=== PATIENT | female | born 1940 | race Caucasian/White ===

== ENCOUNTER → 2017-11-02 07:37 | Outpatient (CLI) | payer MEDICARE, OTHER, SELFPAY ==
[2017-11-02 08:18] LABS: Add Manual Diff / Slide Review NO; Basophils Percent Auto 0.5 % (0-2); Eosinophils Percent Auto 2.5 % (2-4); Hematocrit 41.2 % (36-46); Lymphocytes Percent Auto 29.3 % (25-40); Mean Corpuscular HGB Conc 33.9 % (30-36); Mean Corpuscular Volume 91.5 fL (80-100); Monocytes Percent Auto 8.5 % (3-14); Neutrophils Absolute Auto 4800 /uL (3000-5900); Neutrophils Percent Auto 59.2 % (50-75); Platelet Count 243 X10^3/uL (150-400); Red Cell Distribution Width 14.1 % (11.6-14.8); White Blood Cell Count 8.1 X10^3/uL (4.5-11.0)
[2017-11-02 08:29] LABS: Alanine Aminotransferase 31 IU/L (9-52); Albumin 4.2 g/dL (3.5-5.0); Albumin Globulin Ratio 1.4 (1.0-2.8); Alkaline Phosphatase 94 U/L (38-126); Aspartate Aminotransferase 24 IU/L (14-36); Bilirubin Total 0.6 mg/dL (0.2-1.3); Blood Urea Nitrogen 16 mg/dL (7-17); Calcium 9.9 mg/dL (8.4-10.2); Carbon Dioxide 30 mmol/L (22-32); Chloride 99 mmol/L (98-107); Estimated Glomerular Filt Rate > 60.0 mL/min (>60); Glucose 119 mg/dL (80-110); HEMOLYSIS < 15 (0-50); Potassium 4.3 mmol/L (3.4-5.1); Sodium 139 mmol/L (137-145); Total Protein 7.2 g/dL (6.3-8.2)
[2017-11-02 09:20] LABS: Free T4, Direct Thyroxine 1.33 ng/dL (0.78-2.19)
[2017-11-02 09:34] LABS: Thyroid Stimulating Hormone 3.26 uIU/mL (0.47-4.68)
== END ==
PROVIDERS: PCP Nurse Practitioner Family; Visit Provider Nurse Practitioner Family
DX: E66.01 Morbid (severe) obesity due to excess calories (principal); I10 Essential (primary) hypertension; E11.311 Type 2 diabetes mellitus with unspecified diabetic retinopathy with macular edema; E03.9 Hypothyroidism, unspecified
CPT/HCPCS: 36415; 80053; 83036; 84439; 84443; 85025

== ENCOUNTER 2017-12-18 16:25 | Emergency (ER) | payer MEDICARE, OTHER, SELFPAY ==
[2017-12-18 16:30] VITALS: BP 160/84; PULSE 70; RESP 18; TEMP 36.5; O2SAT 97
--- NOTE | 2017-12-18 16:38 | DI.RAD.S_ITS ---
PROCEDURE: XR ANKLE LT MIN 3V INDICATIONS: fell down steps TECHNIQUE: 3 views of the ankle were acquired. COMPARISON: None. FINDINGS: Bones: Small avulsion fractures tip of the fibula. Ankle mortise is normally aligned. No suspicious bony lesions. Plantar spur posterior calcaneus. Soft tissues: Anterolateral soft tissue swelling. No tibiotalar joint effusion. Achilles tendon appears normal. IMPRESSION: Small avulsion fractures tip of the lateral malleolus with overlying soft tissue swelling. Dictated by: Delfino Day M.D. on 12/18/2017 at 17:01 Approved by: Delfino Day M.D. on 12/18/2017 at 17:03
--- NOTE | 2017-12-18 16:40 | DI.CT.S_ITS ---
PROCEDURE: CT HEAD/BRAIN WO CON INDICATIONS: fell down steps, hit head. on ASA TECHNIQUE: Noncontrast 4.5 mm thick angled axial sections acquired from the foramen magnum to the vertex, with coronal and sagittal reformats. For radiation dose reduction, the following was used: automated exposure control, adjustment of mA and/or kV according to patient size. COMPARISON: None. FINDINGS: Image quality: Excellent. CSF spaces: Basal cisterns are patent. No extra-axial fluid collections. There is mild cerebral volume loss with prominence of the ventricles and sulci. Brain: No intracranial hemorrhage, mass, or mass effect. There are subcortical, periventricular and deep white matter hypodensities consistent with mild chronic small vessel ischemic changes. The pierson-white matter interface appears preserved. There is intracranial internal carotid artery atherosclerosis. Skull and face: Calvarium and visualized facial bones appear intact, without suspicious lesions. Sinuses: Visualized sinuses and mastoids are clear. IMPRESSION: 1. No acute intracranial abnormality. 2. Mild chronic white matter small vessel ischemic changes and cerebral volume loss. Dictated by: Jonny Mattson M.D. on 12/18/2017 at 16:34 Approved by: Jonny Mattson M.D. on 12/18/2017 at 16:34
--- NOTE | 2017-12-18 16:41 | DI.RAD.S_ITS ---
PROCEDURE: XR LUMBAR SPINE 2-3V INDICATIONS: fell down steps TECHNIQUE: 3 views of the lumbar spine were acquired. COMPARISON: [facility], , L-SPINE 2-3 VIEWS, 04/12/2012, 12:06. FINDINGS: Bones: 5 [id number] vertebrae are present. There is normal bony alignment. Prominent hypertrophic changes as before. No vertebral body compression fractures. No suspicious bony lesions. Multilevel degenerative disc disease. Soft tissues: Overlying bowel gas pattern is normal. Aortic calcifications. IMPRESSION: No acute lumbar fracture. Diffuse degenerative changes. Dictated by: Delfino Day M.D. on 12/18/2017 at 17:03 Approved by: Delfino Day M.D. on 12/18/2017 at 17:05
--- NOTE | 2017-12-18 17:48 | ED.FALL ---
HPI - Fall <Shae Dahl PA-C - Last Filed: 12/18/17 22:26> General Chief Complaint: Fall Stated Complaint: Fall down 4x stairs Time Seen by Provider: 12/18/17 17:48 Source: patient Mode of arrival: ambulatory Limitations: no limitations History of Present Illness HPI Narrative: This 77-year-old female states that she fell down 2 stairs in her home, hit the landing, and then fell down 2 more stairs. She states she thinks she slid down and hit her left ankle and her back on the edge of the step, also hit the back of her head. She states that she has had a lot of pain in her low back since, also ankle is tender to touch. She was able to get up. She denies any headache or vision change. She denies any pain in her neck. She denies any weakness or paresthesia in her extremities or any bowel or bladder difficulties. Pain is mainly on the left side of her back she says. Her steps are wood. She denies any CP, palpitations, dizzyness or other sx leading to fall and states that she slipped while carrying a box Related Data Home Medications Medication Instructions Recorded Confirmed aspirin 81 mg PO Q DAY #0 02/06/08 12/18/17 metformin 500 mg PO BID #0 02/06/08 12/18/17 allopurinol 300 mg PO QDAY #0 12/01/12 12/18/17 ramipril [Altace] 5 mg PO QDAY #0 12/01/12 12/18/17 Previous Rx's Medication Instructions Recorded cyclobenzaprine 10 mg PO Q8H #10 tab 12/18/17 hydrocodone-acetaminophen [Bogard] 1 tab PO Q4-6H PRN #10 tab 12/18/17 Allergies Allergy/AdvReac Type Severity Reaction Status Date / Time No Known Drug Allergies Allergy Verified 12/18/17 16:56 Review of Systems <Shae Dahl PA-C - Last Filed: 12/18/17 22:26> Review of Systems All systems reviewed & are unremarkable except as noted in HPI and below Exam <Shae Dahl PA-C - Last Filed: 12/18/17 22:26> Narrative Exam Narrative: GENERAL APPEARANCE: Patient resting comfortably, in no distress. HEENT: PERRL, EOMI, normal oropharynx, no visible scalp lesions or hematoma NECK: Supple LUNGS: Clear to auscultation bilaterally. HEART: Rate and rhythm regular without murmur, normal S1 and S2, no S3 or S4. NEUROLOGIC: Alert and oriented, normal speech, and coordination. Sensation is intact in the left foot MUSCULOSKELETAL: Full Csp AROM without point tenderness over the C-spine. No point tenderness over the thoracic or lumbar spine. She has a little bit of tenderness over the left inferior lumbar musculature. She has mild effusion and is tender over the left caudal, lateral ankle. Normal plantar and dorsiflexion of the left foot toes. EXTREMITIES: No cyanosis, left PT and DP pulses 2+ Initial Vital Signs Initial Vital Signs: Vital Signs Temperature 97.7 F 12/18/17 16:30 Pulse Rate 70 12/18/17 16:30 Respiratory Rate 18 12/18/17 16:30 Blood Pressure 160/84 H 12/18/17 16:30 Pulse Oximetry 97 12/18/17 16:30 <Gilles Still DO - Last Filed: 12/19/17 04:29> Initial Vital Signs Initial Vital Signs: Vital Signs Temperature 97.7 F 12/18/17 16:30 Pulse Rate 70 12/18/17 16:30 Respiratory Rate 18 12/18/17 16:30 Blood Pressure 160/84 H 12/18/17 16:30 Pulse Oximetry 97 12/18/17 16:30 Course <Shae Dahl PA-C - Last Filed: 12/18/17 22:26> Additional Information: She has tenderness with moving from supine to sit in the left low back, but is able to stand up and ambulate with walking boot and reports feeling improved after medications. Orders Ordered: Discontinued Medications Hydrocodone Bitart/Acetaminophen (Bogard 5/325) 1 tab PO NOW ONE Stop: 12/18/17 18:24 Last Admin: 12/18/17 18:51 Dose: 1 tab Cyclobenzaprine HCl (Flexeril) 5 mg PO NOW ONE Stop: 12/18/17 18:24 Last Admin: 12/18/17 18:50 Dose: 5 mg Vital Signs - 8 hr 12/18/17 16:30 12/18/17 19:54 Temperature 97.7 F Pulse Rate 70 86 Respiratory Rate 18 16 Blood Pressure 160/84 H Blood Pressure [Left Arm] 129/56 H Pulse Oximetry 97 96 <Gilles Still DO - Last Filed: 12/19/17 04:29> Orders Ordered: Discontinued Medications Hydrocodone Bitart/Acetaminophen (Bogard 5/325) 1 tab PO NOW ONE Stop: 12/18/17 18:24 Last Admin: 12/18/17 18:51 Dose: 1 tab Cyclobenzaprine HCl (Flexeril) 5 mg PO NOW ONE Stop: 12/18/17 18:24 Last Admin: 12/18/17 18:50 Dose: 5 mg Vital Signs - 8 hr 12/18/17 16:30 12/18/17 19:54 Temperature 97.7 F Pulse Rate 70 86 Respiratory Rate 18 16 Blood Pressure 160/84 H Blood Pressure [Left Arm] 129/56 H Pulse Oximetry 97 96 MDM - Fall <Shae Dahl PA-C - Last Filed: 12/18/17 22:26> Imaging Data lumbar: Radiologist's impression: [address] [address] XRay Report Signed Patient: Rupa Lee MR#: [id number] : 1940 Acct:[id number] Age/Sex: 77 / F Date of Service: 12/18/17 Loc: ED Accession Number: [id number] Procedure: XR lumbar spine 2-3V Ordering Provider: Shae Dahl P.A-C PROCEDURE: XR LUMBAR SPINE 2-3V INDICATIONS: fell down steps TECHNIQUE: 3 views of the lumbar spine were acquired. COMPARISON: [facility], , L-SPINE 2-3 VIEWS, 04/12/2012, 12:06. FINDINGS: Bones: 5 [id number] vertebrae are present. There is normal bony alignment. Prominent hypertrophic changes as before. No vertebral body compression fractures. No suspicious bony lesions. Multilevel degenerative disc disease. Soft tissues: Overlying bowel gas pattern is normal. Aortic calcifications. IMPRESSION: No acute lumbar fracture. Diffuse degenerative changes. Dictated by: Delfino Day M.D. on 12/18/2017 at 17:03 Approved by: Delfino Day M.D. on 12/18/2017 at 17:05 CT scan - head: Radiologist's impression: View Report History Print [address] [place] [address] CT Scan Report Signed Patient: Rupa Lee MR#: [id number] : 1940 Acct:[id number] Age/Sex: 77 / F Date of Service: 12/18/17 Loc: ED Accession Number: [id number] Procedure: CT head/brain wo con Ordering Provider: Shae Dahl P.A-C PROCEDURE: CT HEAD/BRAIN WO CON INDICATIONS: fell down steps, hit head. on ASA TECHNIQUE: Noncontrast 4.5 mm thick angled axial sections acquired from the foramen magnum to the vertex, with coronal and sagittal reformats. For radiation dose reduction, the following was used: automated exposure control, adjustment of mA and/or kV according to patient size. COMPARISON: None. FINDINGS: Image quality: Excellent. CSF spaces: Basal cisterns are patent. No extra-axial fluid collections. There is mild cerebral volume loss with prominence of the ventricles and sulci. Brain: No intracranial hemorrhage, mass, or mass effect. There are subcortical, periventricular and deep white matter hypodensities consistent with mild chronic small vessel ischemic changes. The pierson-white matter interface appears preserved. There is intracranial internal carotid artery atherosclerosis. Skull and face: Calvarium and visualized facial bones appear intact, without suspicious lesions. Sinuses: Visualized sinuses and mastoids are clear. IMPRESSION: 1. No acute intracranial abnormality. 2. Mild chronic white matter small vessel ischemic changes and cerebral volume loss. Dictated by: Jonny Mattson M.D. on 12/18/2017 at 16:34 Approved by: Jonny Mattson M.D. on 12/18/2017 at 16:34 ankle: Radiologist's impression: View Report History [address] [address] XRay Report Signed Patient: Rupa Lee MR#: [id number] : 1940 Acct:[id number] Age/Sex: 77 / F Date of Service: 12/18/17 Loc: ED Accession Number: [id number] Procedure: XR ankle LT min 3V Ordering Provider: Shae Dahl P.A-C PROCEDURE: XR ANKLE LT MIN 3V INDICATIONS: fell down steps TECHNIQUE: 3 views of the ankle were acquired. COMPARISON: None. FINDINGS: Bones: Small avulsion fractures tip of the fibula. Ankle mortise is normally aligned. No suspicious bony lesions. Plantar spur posterior calcaneus. Soft tissues: Anterolateral soft tissue swelling. No tibiotalar joint effusion. Achilles tendon appears normal. IMPRESSION: Small avulsion fractures tip of the lateral malleolus with overlying soft tissue swelling. Dictated by: Delfino Day M.D. on 12/18/2017 at 17:01 Approved by: Delfino Day M.D. on 12/18/2017 at 17:03 Discharge Plan Departure Patient Disposition: Home, Self-Care Clinical Impression: Closed avulsion fracture of distal end of fibula, Lumbar contusion, Contusion of head Discharge Date/Time: 12/18/17 20:24 Interventions: ED Discharge Assessment Last Done: 12/18/17 20:24 Instructions: DI for Ankle Fracture Activity Restrictions/Additional Instructions: Please wear the orthopedic boot that we gave you at all times unless you are just sitting for a while with no weight on the foot at all. Please call [facility] on Thursday morning and let them know you were seen in the emergency room for a fibular fracture (the bone on the outside of your lower leg where it meets the ankle), and need to schedule follow up. You do not appear to have any acute problem on your brain imaging or low back x-rays. The pain in your back appears mostly due to contusing the muscles on the left side and is causing some spasms. You can take the hydrocodone/acetaminophen for pain as well as the cyclobenzaprine to help with muscle spasms as you need, but remember they can both make you sleepy so be careful about walking and driving when taking them. You can go back to Tylenol instead of the hydrocodone/acetaminophen as your pain improved. You should return as we talked about if you have any acutely worsening symptoms Prescriptions: New cyclobenzaprine 10 mg tablet 10 mg PO Q8H Qty: 10 RF: 0 hydrocodone-acetaminophen [Bogard] 5-325 mg tablet 1 tab PO Q4-6H PRN (Reason: ankle and back pain) Qty: 10 RF: 0 No Action aspirin 81 mg Tablet,Chewable 81 mg PO Q DAY Qty: 0 RF: 0 metformin 500 mg PO BID Qty: 0 RF: 0 allopurinol 300 MG tablet 300 mg PO QDAY Qty: 0 RF: 0 ramipril [Altace] 5 MG capsule 5 mg PO QDAY Qty: 0 RF: 0 Referrals: [facility] [Provider Group] Saba Sullivan ARNP [Primary Care Provider] - <Gilles Still DO - Last Filed: 12/19/17 04:29> Cosign ED Attending Court Attestation: I was immediately available in the department for consultation. Documentation has been reviewed. I agree with assessment and plan.
[2017-12-18] MEDS: CYCLOBENZAPRINE 5 MG TABLET PO (18:50)
[2017-12-18] MEDS: HYDROCODONE/ACET 5/325 TABLET 1 TAB PO (18:51)
[2017-12-18 19:54] VITALS: BP 129/56; PULSE 86; RESP 16; O2SAT 96
--- NOTE | 2017-12-18 20:18 | PC.NURSE ---
good pulses post ortho boot placement. instructions reviewed with pt and daughter. ZAKI Barba stand by as pt was bearing weight with ortho boot. pt tolerated well.
== END 2017-12-18 20:24 | disposition home or self-care (01) ==
PROVIDERS: Emergency Provider Internal Medicine; PCP Nurse Practitioner Family
DX: S82.832A Other fracture of upper and lower end of left fibula, initial encounter for closed fracture (principal); S30.0XXA Contusion of lower back and pelvis, initial encounter; S00.93XA Contusion of unspecified part of head, initial encounter; W10.8XXA Fall (on) (from) other stairs and steps, initial encounter
CPT/HCPCS: 70450; 72100; 73610; 99283; 99284

== ENCOUNTER → 2018-01-18 10:07 | Outpatient (CLI) | payer MEDICARE, OTHER, SELFPAY ==
--- NOTE | 2018-01-18 | DI.RAD.S_ITS ---
PROCEDURE: XR ANKLE LT MIN 3V INDICATIONS: DISTAL LAT MALLELLUS FX TECHNIQUE: 3 views of the ankle were acquired. COMPARISON: [facility], CR, XR ANKLE LT MIN 3V, 12/18/2017, 16:43. FINDINGS: Bones: Previously noted a small calcification involving tip of lateral malleolus appears more corticated suggestive of healing avulsion injury in this region. No new fracture or dislocation. Ankle mortise is congruent. Well-defined plantar thickening enthesophyte is seen. Soft tissues: No tibiotalar joint effusion. Achilles tendon appears normal. IMPRESSION: Healing avulsion injury involving tip of lateral malleolus. No new fracture or dislocation. Anatomic alignment. Dictated by: Jl Villa M.D. on 01/18/2018 at 10:53 Approved by: Jl Villa M.D. on 01/18/2018 at 10:55
== END ==
PROVIDERS: PCP Nurse Practitioner Family; Visit Provider Nurse Practitioner Family
DX: S82.63XA Displaced fracture of lateral malleolus of unspecified fibula, initial encounter for closed fracture (principal)
CPT/HCPCS: 73610

== ENCOUNTER → 2018-03-23 08:16 | Outpatient (CLI) | payer MEDICARE, OTHER, SELFPAY ==
--- NOTE | 2018-03-23 | DI.NM.S_ITS ---
PROCEDURE: NM NICO PERF SPECT R&S PHARM Rest and pharmacological stress myocardial perfusion SPECT with gated imaging and ejection fraction RADIOPHARMACEUTICAL: 23.8 mCi Tc-99m tetrafosmin IV at rest and 24.7 mCi Tc-99m tetrafosmin IV at peak effect of pharmacological stress. [id number] was performed. INDICATIONS: SHORTNESS OF BREATH TECHNIQUE: Radiopharmaceutical was injected at peak stress test, and also at rest. SPECT images were obtained. SPECT myocardial perfusion images were displayed in short axis, horizontal long axis, and vertical long axis views. Gated images were reviewed using [employer] software. COMPARISON: None. CARDIAC STRESS: A pharmacologic stress test was performed under the supervision of an attending staff, using an infusion of lexiscan 0.4mg IV X1. Hemodynamic data: There is normal blood pressure and heart rate response to pharmacologic stress. Symptoms: The patient denied anginal chest pain. Aminophylline: none EKG: No diagnostic changes of ischemia; no ectopy. FINDINGS: Raw data: There is good myocardial uptake of radiotracer. No significant motion artifacts. Juaf-ni-eegqp ratio is 0.32 (normal is less than 0.38 for tetrafosmin tracer). Left ventricle function: Gated images demonstrate normal left ventricular wall thickening. No segmental wall motion abnormalities. No transient ischemic dilation; TID is 0.8 (normal less than 1.3). Left ventricle resting end diastolic volume is 81 mL. Left ventricle stress ejection fraction is 82%; normal range is above 45%. Myocardial perfusion: There is a small mildly severe fixed distal anterior wall defect that resolves with prone imaging, suggesting breast attentuation artifact. No ischemia or infarction present. IMPRESSION: Probably normal pharmaceutical nuclear stress test. 1) No perfusion evidence of ischemia or infarction. here is a small mildly severe fixed distal anterior wall defect that resolves with prone imaging, suggesting breast attentuation artifact. 2) Normal left ventricular size, wall motion, and systolic function (post stress EF 82%). 3) No ECG evfidence of ischemia. 4) No angina during the study. 5) No prior nuclear stress test available for comparison. Dictated by: Owen Bullard MD on 03/25/2018 at 19:00 Approved by: Owen Bullard MD on 03/25/2018 at 19:04
--- NOTE | 2018-03-23 09:30 | PM.TREADMILL ---
Cardiac Stress Test Report Referral & Results Date Patient Seen: 03/23/18 Time Patient Seen: 09:31 Requesting provider: Mike Forte Indication: Shortness of breath Rest ECG: Unremarkable Procedure Note: After both written and verbal informed consent the patient had an IV started by the diagnostic imaging RN and then was hooked up to the treadmill monitoring system. The patient was placed on the treadmill at 1 mile an hour with no elevation and was then injected with the Christen scan material. The Cardiolite was then immediately administered. The patient spent an additional 2-3 minutes on the treadmill before being returned to the [facility] in the supine position. The patient had a normal response to all infused materials. Impression: Normal response to materials as above, perfusion imaging will be reported separately and will be the determinant of possible ischemia Please note: Actual ECG tracings can be found in the PACS system.
== END ==
PROVIDERS: PCP Internal Medicine; Visit Provider Internal Medicine
DX: R06.02 Shortness of breath (principal)
CPT/HCPCS: 78452; 93016; 93017; 93018; A9502; J2785

== ENCOUNTER → 2018-06-29 16:23 | Outpatient (CLI) | payer MEDICARE, OTHER, SELFPAY ==
[2018-06-29 19:10] LABS: Free T4, Direct Thyroxine 1.46 ng/dL (0.78-2.19)
[2018-06-29 19:24] LABS: Thyroid Stimulating Hormone 1.98 uIU/mL (0.47-4.68)
[2018-07-02 19:51] LABS: Triiodothyronine T3 Total 107 ng/dL (76-181)
== END ==
PROVIDERS: Internal Medicine Cardiovascular Disease; PCP Internal Medicine; Visit Provider Internal Medicine
DX: E03.9 Hypothyroidism, unspecified (principal)
CPT/HCPCS: 36415; 84439; 84443; 84480

== ENCOUNTER → 2018-11-03 09:33 | Outpatient (CLI) | payer MEDICARE, OTHER, SELFPAY ==
[2018-11-03 10:36] LABS: Hemoglobin A1C% w Est Avg Glu 6.1 % (4.0-6.0)
[2018-11-03 10:48] LABS: BUN Creatinine Ratio 21.3 (6-22); Blood Urea Nitrogen 17 mg/dL (7-17); Carbon Dioxide 30 mmol/L (22-32); Chloride 102 mmol/L (98-107); Cholesterol 173 mg/dL (140-199); Estimated Glomerular Filt Rate > 60.0 mL/min (>60); Glucose 129 mg/dL (80-110); HDL Cholesterol 53 mg/dL (40-60); HEMOLYSIS < 15 (0-50); LDL Cholesterol Calculated 93 mg/dL (<100); Potassium 4.9 mmol/L (3.4-5.1); Sodium 138 mmol/L (137-145); Triglycerides 135 mg/dL (35-150)
== END ==
PROVIDERS: PCP Family Medicine; Visit Provider Family Medicine
DX: I10 Essential (primary) hypertension (principal); R73.03 Prediabetes
CPT/HCPCS: 36415; 80048; 80061; 83036

== ENCOUNTER → 2019-01-11 09:09 | Outpatient (CLI) | payer MEDICARE, OTHER, SELFPAY ==
[2019-01-11 10:59] LABS: TSH w/ Reflex to FT4 1.99 uIU/mL (0.47-4.68)
== END ==
PROVIDERS: PCP Family Medicine; Visit Provider Family Medicine
DX: E03.9 Hypothyroidism, unspecified (principal)
CPT/HCPCS: 36415; 84443

== ENCOUNTER → 2019-05-16 11:13 | Outpatient (CLI) | payer MEDICARE, OTHER, SELFPAY ==
[2019-05-16 12:37] LABS: Hemoglobin A1C% w Est Avg Glu 6.3 % (4.0-6.0)
== END ==
PROVIDERS: PCP Family Medicine; Visit Provider Family Medicine
DX: R73.03 Prediabetes (principal)
CPT/HCPCS: 36415; 83036

== ENCOUNTER 2019-12-04 07:22 | Inpatient (IN) | payer MEDICARE, OTHER, SELFPAY ==
[2019-12-04] VITALS (25 sets, daily range): BP systolic 127–164; BP diastolic 58–93; PULSE 68–90; RESP 13–25; TEMP 36–37; O2SAT 89–99; BMI 40.4
--- NOTE | 2019-12-04 07:37 | DI.CT.S_ITS ---
PROCEDURE: CT ABDOMEN PELVIS W CON INDICATIONS: GI bleed, orthosttic hypotension TECHNIQUE: After the administration of intravenous contrast, 5 mm thick sections acquired from the diaphragm to the symphysis. 5 mm coronal and sagittal reformats were acquired. For radiation dose reduction, the following was used: automated exposure control, adjustment of mA and/or kV according to patient size. COMPARISON: None. FINDINGS: Image quality: Excellent. ABDOMEN: Lung bases: Lung bases are clear. Heart size is normal. Solid organs: Liver is normal in size and enhancement. Gallbladder is unremarkable. Biliary system is non dilated. Pancreas enhances normally. Spleen is normal in size and enhancement. No adrenal nodules. Kidneys demonstrate normal size and enhancement, without hydronephrosis. Nonobstructing 5 mm stone, junction between right middle pole and right lower pole. Peritoneum and bowel: Bowel loops demonstrate normal wall thickness and caliber. No free fluid or air. Moderate fecal debris. No acute contrast extravasation into bowel noted. Scattered diverticulosis without evidence of diverticulitis. Nodes and vessels: No retroperitoneal or mesenteric adenopathy by size criteria. Aorta and inferior vena cava are normal in size. Miscellaneous: No ventral hernias. PELVIS: Genitourinary: Bladder wall thickness is normal. Miscellaneous: No inguinal hernias or adenopathy. Remote hysterectomy. Bones: No suspicious bony lesions. No acute vertebral body compression fractures. Chronic T11 compression. Multilevel lumbar degenerative changes with multilevel canal stenosis, severe at L4-L5. IMPRESSION: 1. No evidence of acute abdominal process. 2. Old compression fracture. 3. 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 4. Nonobstructing right renal stone. Dictated by: Tyler Contreras M.D. on 12/04/2019 at 8:12 Approved by: Tyler Contreras M.D. on 12/04/2019 at 8:17
--- NOTE | 2019-12-04 07:40 | ED_ITS ---
HPI - GI Bleed General Chief complaint: GI Bleed Stated complaint: GI Bleed Time Seen by Provider: 12/04/19 07:29 Source: patient and EMS Mode of arrival: EMS Limitations: no limitations History of Present Illness HPI Narrative: CC: GI bleed, gross rectal bleeding HPI: The patient is a 79-year-old female who states that she has a past history of diverticulitis. She denies a history of Crohn's disease or ulcerative colitis irritable bowel syndrome or previous GI bleed. She states that time she woke up in the middle the night pass gas and it was blood that she passed. She went to the bathroom to have a bowel movement and passed a large amount of blood. She filled the toilet with blood. Standing upright she became dizzy and lightheaded. She did not pass out or fall. When the paramedics arrived in the supine position or blood pressure was 160 tore and when she stood up hit dropped to 80 tore she had marked orthostatic hypertension. The patient denied having any chest pain cough shortness of breath abdominal pain vomiting. She has been having normal bowel movements she had a little bit of nausea. There has been no fever chills or sweats. She has had no headache no troubles urinating. She is not on any anticoagulant other than a baby aspirin. She admits to being a type 2 diabetic and having hypertension for which she is on medications. She denies any stroke congestive heart failure, myocardial infarction, COPD, asthma. She used to smoke cigarettes does not drink alcohol use any drugs including marijuana. Related Data Home Medications Medication Instructions Recorded Confirmed aspirin 81 mg PO Q DAY #0 02/06/08 03/15/19 magnesium 250 mg tablet 250 mg PO DAILY 12/29/18 03/15/19 vit C 250 mg-E 200 unit-zinc 40 1 tab PO BID 01/13/19 03/15/19 mg-copper 1 ql-dkggzc-xyofys capsule Previous Rx's Medication Instructions Recorded vitamins A,C,F-ftiv-plijsu 14,320 2 cap PO ONCE #180 caplet 08/09/18 unit-226 mg-200 unit capsule albuterol sulfate 90 mcg/actuation 2 inhalation INHALATION Q4-6H PRN 08/31/19 breath activated powder #1 each inhaler,sensor metformin 500 mg tablet 500 mg PO DAILY #90 tab 05/28/20 ramipril 5 mg capsule 5 mg PO QDAY #90 cap 10/27/19 Allergies Allergy/AdvReac Type Severity Reaction Status Date / Time No Known Drug Allergies Allergy Verified 01/13/19 11:25 Review of Systems Review of Systems Narrative: The patient's review of systems were all negative except for those mentioned in the history of present illness. Patient History Medical History Ankle fracture (Resolved ~2014) Bulging disc (Chronic ~1979) Cataracts, bilateral (Resolved) Colon polyps (Chronic) Depression (Chronic ~2001) Diabetes (Chronic) Diverticular disease (Chronic) Gout (Chronic ~2013) HTN (hypertension) (Chronic) Hypothyroidism (Chronic) Nocturnal hypoxemia (Chronic ~12/2018) Obesity (BMI 30-39.9) (Chronic) Obstructive sleep apnea (Chronic ~12/2018) Positive PPD (Resolved ~1978) Skin cancer (Resolved) Snoring (Chronic) Surgical History Anesthesia (Resolved) History of cataract removal with insertion of prosthetic lens (Resolved ~2016) History of ear surgery (Resolved ~2015) History of hysterectomy (Resolved ~1984) Family History Father Fractured hip Sister Cancer Grandfather Sepsis Social History marital status: number of children: 1 household members: none lives independently: Yes housing: house education level: college occupational status: other (retired) Smoking Status: Former smoker alcohol intake: former (quit 1975) substance use type: does not use Smoking Status: Former smoker alcohol intake frequency: 0-2 drinks per day Substance Use Type: does not use Exam Narrative Exam Narrative: PHYSICAL EXAM: CONSTITUTIONAL: Awake, Alert, Oriented, Coherent, Cooperative in NAD. Does not appear toxic or ill. Very pleasant and cooperative lying supine in bed. HEAD: AT/NC EENT: PERRL, FROM of eyes, no discharge, conjunctiva appear pale as does her oral mucosa NOSE:No epistaxis or nasal drainage MOUTH:Oral mucosa is moist and pale pink, posterior pharynx is without erythema or exudate. NECK: Short neck, Supple, no obvious JVD, Trachea is midline without stridor, no palpable LN. SPINE: Palpationof the cervical spine nontender THORAX: No deformity, retractions, chest wall tenderness. LUNGS: Clear, symmetrical breath sounds without respiratory distress. HEART: Normal heart tones, regular rhythm and rate without murmur. ABDOMEN: Soft, non-tender, without guarding, rebound, rigidity or palpable mass. EXTREMITIES: No edema, deformity, tenderness or cyanosis. SKIN: No rash, bruising, petechiae or purpura. NEURO: Awake, alert, oriented, conversive, cranial nerves II-XII are symmetrical , moves all 4 extremities and is ambulatory. MENTAL HEALTH: Does not appear anxious or depressed. Initial Vital Signs Initial Vital Signs: Vital Signs Temperature 98.6 F 12/04/19 07:25 Pulse Rate 69 12/04/19 07:25 Respiratory Rate 13 12/04/19 07:25 Blood Pressure 129/71 12/04/19 07:25 Pulse Oximetry 97 12/04/19 07:25 Course Course Course Narrative: 0857: I will call the hospitalist to get the patient admitted. The patient will need a probable colonoscopy. CT scan of the abdomen remains pending. The patient's BUN is 16 lactate is 1.2. The patient does not appear to have sepsis or ischemic bowel and the GI bleed is probably lower. The patient had a grossly bloody bowel movement in the bed pain. The patient at this time appears to P having a painless GI bleed. 0908: I discussed the patient's with Dr. Tolliver who accepted the patient being admitted to medicine observation status and spoke with Dr. Brandon petersen who was in a procedure who has agreed to consult. She is stable at this time. Orders Ordered: ED Orders 12/04/19 07:37 CT abdomen pelvis w con Stat Urinalysis and Microscopic Stat 12/04/19 07:40 Complete Blood Count AUTO DIFF Stat Comprehensive Metabolic Panel Stat Lactate (Lactic Acid) Stat Lactate Dehydrogenase Stat Lipase Stat Partial Thromboplastin Time Stat Prothrombin Time INR Stat Type and Screen Stat 12/04/19 08:53 XR chest 1V Stat 12/04/19 13:30 Complete Blood Count AUTO DIFF Urgent Discontinued Medications Sodium Chloride (Normal Saline 0.9%) 1,000 mls @ 1,000 mls/hr IV BOLUS ONE Stop: 12/04/19 08:36 Last Infusion: 12/04/19 09:44 Dose: 0 mls/hr Documented by: Admin: 12/04/19 07:43 Dose: 1,000 mls/hr Documented by: MAVIS Octreotide Acetate (Sandostatin) 50 mcg IV NOW ONE Stop: 12/04/19 08:38 Last Admin: 12/04/19 09:19 Dose: 50 mcg Documented by: YOSI Pantoprazole Sodium (Protonix) 80 mg IV NOW ONE Stop: 12/04/19 08:38 Last Admin: 12/04/19 09:16 Dose: 80 mg Documented by: YOSI Vital Signs Vital signs: Vital Signs - 8 hr 12/04/19 07:25 12/04/19 07:40 12/04/19 07:42 Temperature 98.6 F Pulse Rate 69 70 68 Respiratory Rate 13 20 17 Blood Pressure 129/71 131/67 Pulse Oximetry 97 98 98 12/04/19 07:50 12/04/19 08:00 12/04/19 08:01 Temperature Pulse Rate 71 75 72 Respiratory Rate 25 H 21 17 Blood Pressure 135/66 Pulse Oximetry 97 97 97 12/04/19 08:10 12/04/19 08:24 12/04/19 08:30 Temperature Pulse Rate 78 80 77 Respiratory Rate 22 Blood Pressure Pulse Oximetry 97 97 98 12/04/19 08:32 12/04/19 08:40 12/04/19 09:02 Temperature Pulse Rate 78 81 83 Respiratory Rate Blood Pressure 127/60 Pulse Oximetry 97 98 89 L 12/04/19 09:10 12/04/19 09:19 12/04/19 09:20 Temperature 98.2 F Pulse Rate 81 80 78 Respiratory Rate Blood Pressure 130/58 L Pulse Oximetry 99 99 99 12/04/19 09:30 12/04/19 09:31 Temperature Pulse Rate 70 77 Respiratory Rate Blood Pressure 129/61 Pulse Oximetry 96 95 MDM - GI Bleed Medical Records Attestation: I reviewed the patient's medical records. Lab Data Attestation: I reviewed the patient's lab results. Result diagrams: 12/04/19 07:40 12/04/19 07:40 Labs: Lab Results 12/04/19 12/04/19 12/04/19 Range/Units 07:40 07:40 07:40 WBC 8.9 (4.5-11.0) X10^3/uL RBC 4.20 (4.0-5.2) X10^6/uL Hgb 12.6 (12.0-16.0) g/dL Hct 37.5 (36-46) % MCV 89.2 (80-100) fL MCH 29.9 (26-34) PG MCHC 33.5 (30-36) % RDW 13.2 (11.6-14.8) % Plt Count 285 (150-400) X10^3/uL Neut % (Auto) 57.5 (50-75) % Lymph % (Auto) 31.3 (25-40) % [place] % (Auto) 8.6 (3-14) % Eos % (Auto) 2.1 (2-4) % Baso % (Auto) 0.5 (0-2) % Neut # (Auto) 5100 (8370-2964) /uL Lymph # (Auto) 2800 (6852-7612) /uL [place] # (Auto) 800 (0-900) /uL Eos # (Auto) 200 (0-450) /uL Baso # (Auto) 0 (0-100) /uL PT 12.2 (10.1-12.7) SECONDS INR 1.1 (0.9-1.3) APTT 26 L (26.4-36.2) SECONDS Sodium 136 L (137-145) mmol/L Potassium 4.9 (3.4-5.1) mmol/L Chloride 103 (98-107) mmol/L Carbon Dioxide 30 (22-32) mmol/L BUN 16 (7-17) mg/dL Creatinine 0.91 (0.52-1.04) mg/dL Estimated GFR 59.9 L (>60) mL/min BUN/Creatinine Ratio 17.6 (6-22) Glucose 202 H (80-110) mg/dL Lactate (0.7-2.1) mmol/L Calcium 10.0 (8.4-10.2) mg/dL Total Bilirubin 0.4 (0.2-1.3) mg/dL AST 23 (14-36) IU/L ALT 19 (<35) IU/L Alkaline Phosphatase 104 (38-126) U/L Lactate Dehydrogenase 338 (313-618) U/L Total Protein 6.6 (6.3-8.2) g/dL Albumin 3.7 (3.5-5.0) g/dL Globulin 2.9 (1.7-4.1) g/dL Albumin/Globulin Ratio 1.3 (1.0-2.8) Lipase 80 (23-300) U/L Blood Type Antibody Screen 12/04/19 12/04/19 Range/Units 07:40 07:40 WBC (4.5-11.0) X10^3/uL RBC (4.0-5.2) X10^6/uL Hgb (12.0-16.0) g/dL Hct (36-46) % MCV (80-100) fL MCH (26-34) PG MCHC (30-36) % RDW (11.6-14.8) % Plt Count (150-400) X10^3/uL Neut % (Auto) (50-75) % Lymph % (Auto) (25-40) % [place] % (Auto) (3-14) % Eos % (Auto) (2-4) % Baso % (Auto) (0-2) % Neut # (Auto) (1521-0198) /uL Lymph # (Auto) (9066-5954) /uL [place] # (Auto) (0-900) /uL Eos # (Auto) (0-450) /uL Baso # (Auto) (0-100) /uL PT (10.1-12.7) SECONDS INR (0.9-1.3) APTT (26.4-36.2) SECONDS Sodium (137-145) mmol/L Potassium (3.4-5.1) mmol/L Chloride (98-107) mmol/L Carbon Dioxide (22-32) mmol/L BUN (7-17) mg/dL Creatinine (0.52-1.04) mg/dL Estimated GFR (>60) mL/min BUN/Creatinine Ratio (6-22) Glucose (80-110) mg/dL Lactate 1.2 (0.7-2.1) mmol/L Calcium (8.4-10.2) mg/dL Total Bilirubin (0.2-1.3) mg/dL AST (14-36) IU/L ALT (<35) IU/L Alkaline Phosphatase (38-126) U/L Lactate Dehydrogenase (313-618) U/L Total Protein (6.3-8.2) g/dL Albumin (3.5-5.0) g/dL Globulin (1.7-4.1) g/dL Albumin/Globulin Ratio (1.0-2.8) Lipase (23-300) U/L Blood Type O Positive Antibody Screen Negative ECG Data Attestation: I personally reviewed and interpreted this ECG as follows: Interpretation: 0741: The patient's EKG obtained at 7:27 a.m. was read as normal by the computer. The patient has a normal sinus rhythm with a ventricular rate of 66. AL interval is normal at 144 milliseconds QRS is 80 milliseconds QTC is 429 milliseconds axis is normal. The patient has no acute diagnostic ST segment changes. She has inverted T-wave in lead V1. There are no other T-wave abnormalities noted. There is no signs of ischemia or infarct or injury. Discharge Plan Departure Patient Disposition: Admitted as Observation Clinical Impression: H/O diverticulitis of colon, Orthostatic hypotension, Acute GI hemorrhage, Snoring Referrals: Alysia Kennedy DO [Primary Care Provider] -
[2019-12-04] MEDS: SODIUM CHLORIDE 0.9% 1,000 ML 1000 ML IV (07:43)
[2019-12-04 08:08] LABS: Add Manual Diff / Slide Review NO; Alanine Aminotransferase 19 IU/L (<35); Albumin 3.7 g/dL (3.5-5.0); Albumin Globulin Ratio 1.3 (1.0-2.8); Alkaline Phosphatase 104 U/L (38-126); Aspartate Aminotransferase 23 IU/L (14-36); BUN Creatinine Ratio 17.6 (6-22); Basophils Absolute Auto 0 /uL (0-100); Basophils Percent Auto 0.5 % (0-2); Bilirubin Total 0.4 mg/dL (0.2-1.3); Blood Urea Nitrogen 16 mg/dL (7-17); Carbon Dioxide 30 mmol/L (22-32); Chloride 103 mmol/L (98-107); Eosinophils Absolute Auto 200 /uL (0-450); Eosinophils Percent Auto 2.1 % (2-4); Estimated Glomerular Filt Rate 59.9 mL/min (>60); Globulin 2.9 g/dL (1.7-4.1); Glucose 202 mg/dL (80-110); HEMOLYSIS < 15 (0-50); Hematocrit 37.5 % (36-46); Hemoglobin 12.6 g/dL (12.0-16.0); Lactate Dehydrogenase 338 U/L (313-618); Lipase 80 U/L (23-300); Lymphocytes Absolute Auto 2800 /uL (1100-4500); Lymphocytes Percent Auto 31.3 % (25-40); Mean Corpuscular HGB Conc 33.5 % (30-36); Mean Corpuscular Hemoglobin 29.9 PG (26-34); Mean Corpuscular Volume 89.2 fL (80-100); Monocytes Absolute Auto 800 /uL (0-900); Monocytes Percent Auto 8.6 % (3-14); Neutrophils Absolute Auto 5100 /uL (1500-7000); Neutrophils Percent Auto 57.5 % (50-75); Platelet Count 285 X10^3/uL (150-400); Potassium 4.9 mmol/L (3.4-5.1); Red Cell Distribution Width 13.2 % (11.6-14.8); Sodium 136 mmol/L (137-145); Total Protein 6.6 g/dL (6.3-8.2); White Blood Cell Count 8.9 X10^3/uL (4.5-11.0)
[2019-12-04 08:09] LABS: Lactate (Lactic Acid) 1.2 mmol/L (0.7-2.1)
[2019-12-04 08:13] LABS: INR 1.1 (0.9-1.3); Prothrombin Time 12.2 SECONDS (10.1-12.7)
[2019-12-04 08:15] LABS: PTT Partial Thromboplastin Tim 26 SECONDS (26.4-36.2)
--- NOTE | 2019-12-04 08:53 | DI.RAD.S_ITS ---
PROCEDURE: XR CHEST 1V INDICATIONS: orthostatic hypotension with GI Bleed TECHNIQUE: One view of the chest was acquired. COMPARISON: None. FINDINGS: Surgical changes and devices: None. Lungs and pleura: Lungs are clear. No pleural effusions or pneumothorax. Mediastinum: Mediastinal contours appear normal. Heart size is normal. Bones and chest wall: No suspicious bony lesions. Overlying soft tissues appear unremarkable. IMPRESSION: No evidence acute pulmonary process. Dictated by: Tyler Contreras M.D. on 12/04/2019 at 8:11 Approved by: Tyler Contreras M.D. on 12/04/2019 at 8:12
[2019-12-04] MEDS: PANTOPRAZOLE 40 MG VIAL 80 MG IV (09:16)
[2019-12-04] MEDS: OCTREOTIDE 100 MCG/ML VIAL 50 MCG IV (09:19)
--- NOTE | 2019-12-04 11:03 | PM.HP.1 ---
History of Present Illness History of Present Illness Date Patient Seen: 12/04/19 Time Patient Seen: 11:03 Chief complaint: GI Bleed Narrative: Rupa Lee is a 79-year-old female with past medical history of hypertension, diabetes, obesity, and diverticulitis who presented after an episode of bright red blood per rectum this morning. She denies any prior episodes of GI bleeding, and states that prior to this morning she had had no fatigue, weakness, shortness of breath, dyspnea on exertion, dark stools, or hematemesis. Her last colonoscopy was years ago (per chart review appears to be 2011). She had been having some right hip pain prior to about a week ago, but this is fairly chronic and had improved as she had restarted aquatic therapy. She has actually gained some weight due to being isolated during the COVID-19 epidemic, but has lost some of this recently. She had a total of 2 episodes of bloody bowel movements at home, and then had another in the emergency room. She describes them as large and red. In the emergency room, patient's vital signs were unremarkable. Initial laboratory evaluation showed a hemoglobin of 12.6, down somewhat from her previous findings were her hemoglobin was 14. Her MCV is normal at 89. Coagulation studies were unremarkable. Chemistries showed a glucose of 202, but were otherwise unremarkable. Lactic acid was 1.2, and T bili was 0.4. Chest x-ray was done which was unremarkable. CT scan of her abdomen showed no acute processes, an old compression fracture, multilevel canal stenosis, and an right nonobstructing kidney stone. EKG was unremarkable. Patient was admitted under observation status for likely lower GI bleeding. Patient History Medical History Ankle fracture (Resolved ~2014) Bulging disc (Chronic ~1979) Cataracts, bilateral (Resolved) Colon polyps (Chronic) Depression (Chronic ~2001) Diabetes (Chronic) Diverticular disease (Chronic) Gout (Chronic ~2013) HTN (hypertension) (Chronic) Hypothyroidism (Chronic) Nocturnal hypoxemia (Chronic ~12/2018) Obesity (BMI 30-39.9) (Chronic) Obstructive sleep apnea (Chronic ~12/2018) Positive PPD (Resolved ~1978) Skin cancer (Resolved) Snoring (Chronic) Surgical History Anesthesia (Resolved) History of cataract removal with insertion of prosthetic lens (Resolved ~2016) History of ear surgery (Resolved ~2015) History of hysterectomy (Resolved ~1984) Family & Social History Family History Father Fractured hip Sister Cancer Grandfather Sepsis Social History: household members none lives independently Yes Safety & Behavioral: Feels Safe in Current Yes Environment Tobacco & Substance use: Smoking Status Former smoker alcohol intake former alcohol intake frequency 0-2 drinks per day Substance Use Type does not use Meds Home Medications and Allergies Home Medications Medication Instructions Recorded Confirmed Type aspirin 81 mg PO Q DAY #0 02/06/08 03/15/19 History vitamins A,C,E-njkj-owdbyp 14,320 2 cap PO ONCE #180 caplet 08/09/18 03/15/19 Rx unit-226 mg-200 unit capsule magnesium 250 mg tablet 250 mg PO DAILY 12/29/18 03/15/19 History vit C 250 mg-E 200 unit-zinc 40 1 tab PO BID 01/13/19 03/15/19 History mg-copper 1 dg-voukty-vippet capsule albuterol sulfate 90 mcg/actuation 2 inhalation INHALATION Q4-6H PRN 08/31/19 Rx breath activated powder #1 each inhaler,sensor metformin 500 mg tablet 500 mg PO DAILY #90 tab 10/27/19 Rx ramipril 5 mg capsule 5 mg PO QDAY #90 cap 10/27/19 Rx Allergies Allergy/AdvReac Type Severity Reaction Status Date / Time No Known Drug Allergies Allergy Verified 01/13/19 11:25 Review of Systems Review of Systems Narrative: All other systems reviewed with the patient and are negative unless otherwise stated. Exam Vital Signs (past 8 hours): - 12/04/19 07:25 12/04/19 07:40 12/04/19 07:42 Temperature 98.6 F Pulse Rate 69 70 68 Respiratory Rate 13 20 17 Blood Pressure 129/71 131/67 Pulse Oximetry 97 98 98 12/04/19 07:50 12/04/19 08:00 12/04/19 08:01 Temperature Pulse Rate 71 75 72 Respiratory Rate 25 H 21 17 Blood Pressure 135/66 Pulse Oximetry 97 97 97 12/04/19 08:10 12/04/19 08:24 12/04/19 08:30 Temperature Pulse Rate 78 80 77 Respiratory Rate 22 Blood Pressure Pulse Oximetry 97 97 98 12/04/19 08:32 12/04/19 08:40 12/04/19 09:02 Temperature Pulse Rate 78 81 83 Respiratory Rate Blood Pressure 127/60 Pulse Oximetry 97 98 89 L 12/04/19 09:10 12/04/19 09:19 12/04/19 09:20 Temperature 98.2 F Pulse Rate 81 80 78 Respiratory Rate Blood Pressure 130/58 L Pulse Oximetry 99 99 99 12/04/19 09:30 12/04/19 09:31 12/04/19 09:50 Temperature 96.8 F L Pulse Rate 70 77 78 Respiratory Rate 16 Blood Pressure 129/61 157/82 H Pulse Oximetry 96 95 96 Oxygen Delivery Method Room Air Narrative Exam Narrative: GENERAL APPEARANCE: Well developed, well nourished, obese female, in no acute distress. SKIN: Inspection of the skin reveals no rashes, ulcerations or petechiae. HEENT: Normocephalic atraumatic, extraocular muscles are intact, oropharynx is clear and mucous membranes are moist, neck is supple without adenopathy NECK: Supple and symmetric. There was no thyroid enlargement, and no tenderness, or masses were felt. CHEST: Normal AP diameter and normal contour without any kyphoscoliosis. LUNGS: Auscultation of the lungs revealed no wheezes, rhonchi, or rales. CARDIOVASCULAR: There was a regular rate and rhythm without any murmurs, gallops, rubs. Peripheral pulses were 2+ and symmetric. ABDOMEN: Soft and nontender with normal bowel sounds. No ascites was noted. MUSCULOSKELETAL: There was no tenderness or effusions noted. Muscle strength and tone were normal. EXTREMITIES: No cyanosis, clubbing or edema. NEUROLOGIC: Alert and oriented x 3. Normal affect. Strength is +5/5 in the Upper Extremities and Lower Extremities Bilaterally. Sensation to touch was normal. Objective ECG Impression: Normal sinus rhythm, rate 66. No evidence of active ischemia. Imaging CT scan - abdomen: Radiologist's impression: 1. No evidence of acute abdominal process. 2. Old compression fracture. 3. 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 4. Nonobstructing right renal stone. Labs Result Diagrams: 12/04/19 07:40 12/04/19 07:40 Labs: Laboratory Results - last 24 hr 12/04/19 12/04/19 12/04/19 07:40 07:40 07:40 WBC 8.9 RBC 4.20 Hgb 12.6 Hct 37.5 MCV 89.2 MCH 29.9 MCHC 33.5 RDW 13.2 Plt Count 285 Neut % (Auto) 57.5 Lymph % (Auto) 31.3 [place] % (Auto) 8.6 Eos % (Auto) 2.1 Baso % (Auto) 0.5 Neut # (Auto) 5100 Lymph # (Auto) 2800 [place] # (Auto) 800 Eos # (Auto) 200 Baso # (Auto) 0 PT 12.2 INR 1.1 APTT 26 L Sodium 136 L Potassium 4.9 Chloride 103 Carbon Dioxide 30 BUN 16 Creatinine 0.91 Estimated GFR 59.9 L BUN/Creatinine Ratio 17.6 Glucose 202 H Lactate Calcium 10.0 Total Bilirubin 0.4 AST 23 ALT 19 Alkaline Phosphatase 104 Lactate Dehydrogenase 338 Total Protein 6.6 Albumin 3.7 Globulin 2.9 Albumin/Globulin Ratio 1.3 Lipase 80 Blood Type Antibody Screen 12/04/19 12/04/19 07:40 07:40 WBC RBC Hgb Hct MCV MCH MCHC RDW Plt Count Neut % (Auto) Lymph % (Auto) [place] % (Auto) Eos % (Auto) Baso % (Auto) Neut # (Auto) Lymph # (Auto) [place] # (Auto) Eos # (Auto) Baso # (Auto) PT INR APTT Sodium Potassium Chloride Carbon Dioxide BUN Creatinine Estimated GFR BUN/Creatinine Ratio Glucose Lactate 1.2 Calcium Total Bilirubin AST ALT Alkaline Phosphatase Lactate Dehydrogenase Total Protein Albumin Globulin Albumin/Globulin Ratio Lipase Blood Type O Positive Antibody Screen Negative Assessment & Plan Assessment & Plan narrative: Rupa Lee is a 79-year-old female with past medical history of hypertension, diabetes, obesity, and diverticulitis who presented after an episode of bright red blood per rectum this morning. She is admitted with GI bleeding, likely lower. 1. GI bleeding, likely lower, acute, present on admission -patient has had 3 episodes of bright red blood per rectum, described as a large amount. -admission hemoglobin of 12.9, baseline appears to be around 14. Suspect that she is somewhat dehydrated at this point, and hemoglobin may lag behind her bleeding given acute onset this morning. Will continue to trend over the course of today. -will start clears. Patient is currently undecided about endoscopy after discussing with surgery. She very much wants a female surgeon, but Dr. Pérez will unavailable tomorrow. Discussion may evolve over the course the day, and hope to convince the patient that she needs endoscopy prior to discharge and possibly tomorrow. However if stable she could potentially be discharged for follow up colonoscopy next week as an outpatient. If patient decides for inpatient scope, will need COVID-19 screening. -No current evidence of upper bleeding with normal BUN and BRBPR only, will continue PPI IV BID but low threshold to discontinue. Given 80 mg x1 in the ER. Gave 1 dose of octreotide in the ER as well but will not continue this. -appreciate surgical consultation, will continue to discuss with patient as the day goes on about possible colonoscopy tomorrow. 2. HTN -will hold home ramipril, 5 mg given GI bleeding. Patient is currently hypertensive upon arrival to the floor with a blood pressure of 157/82. She was normotensive in the emergency room. -only restart if BP is consistently >180 systolic. Avoid BRENDA-inhibitors prior to possible procedure depending on patient's decision as noted above. 3. DM, type II, chronic, likely controlled. -patient reports last A1c of 6.2% as an outpatient. Admission glucose of 200. She takes only metformin as an outpatient. -will hold home metformin, and initiate sliding scale insulin. -fingersticks a.c. HS - will repeat A1c as admission glucose was 200. Reports poor diet during the holiday weekend, but generally good control of her glucose. 4. Obesity, BMI 40.5, present on admission - patient is at increased risk of complications due to her obesity in case of possible procedures. - marina manager consultation. Code: Full, emergency contact is patient's daughter Galina Aguilar. DVT: Hold for active bleeding Diet: NPO @ [place], CLD today depending on decision around endoscopy. Dispo: admitted under observation status at this time. Will need to monitor her Hg and for continued bleeding.
[2019-12-04] MEDS: LACTATED RINGERS 1,000 ML 100 ML IV ×2 (12:45→21:42)
--- NOTE | 2019-12-04 12:48 | P.CONS_ITS ---
History of Present Illness Consult details Date Patient Seen: 12/04/19 Time Patient Seen: 11:49 Chief complaint: GI Bleed Reason for consult: GI Bleed Requesting provider: Declan Trotter Narrative: This is a 79-year-old woman with PMH of HTN, DM2, morbid obesity, and diverticulitis who presented to the ER after an episode of bright red blood per rectum this morning. She denies any prior episodes of significant GI bleeding or melena. She say she occasionally sees blood on her toilet paper which she attributes to hemorrhoids. She states that prior to this morning she had had no fatigue, weakness, shortness of breath, dyspnea on exertion, dark stools, or hematemesis. Her last colonoscopy was years ago (per chart review appears to be [address] Dong). She says she had some polyps and was probably suppos ed to follow up before now. She had 2 episodes of bloody bowel movements at home, filling the toilet, and then had another in the emergency room filling a bed kumar with blood. She describes them as large and red. In the emergency room, patient's vital signs were unremarkable. Initial laboratory evaluation showed a hemoglobin of 12.6, down somewhat from her previous findings were her hemoglobin was 14. Her MCV is normal at 89. Coagulation studies were unremarkable. Chemistries showed a glucose of 202, but were otherwise unremarkable. Lactic acid was 1.2, and T bili was 0.4. Chest x- ray was done which was unremarkable. CT scan of her abdomen showed no acute processes, an old compression fracture, multilevel canal stenosis, and an right nonobstructing kidney stone. EKG was unremarkable. Patient was admitted under observation status for likely lower GI bleeding. ROS: Thirteen system review is otherwise negative other than as mentioned below and in HPI. PE: GENERAL: Well groomed and cooperative. Morbidly obese. Appears stated age. Answers questions promptly and appropriately. Vital signs noted. HENT: Normocephalic, atraumatic. Hearing intact. EYES: Conjunctiva pink, sclera white, no periorbital swelling. CARDIOVASCULAR: Regular rate. No pedal edema. RESPIRATORY: Non-tachypneic, breathing comfortably on room air. GASTROINTESTINAL: Abdomen soft and non-distended; rounded abdomen, non tender; no masses GENITALURINARY: No flank tenderness. MUSCULOSKELETAL: Equal tone and mass bilaterally. SKIN: Warm, dry, soft, appropriate color for ethnicity. No other lesions, rashes, or wounds. NEURO: Alert and Oriented X 3. No gross sensory deficits, or cognitive issues. PSYCH: Appropriate affect and mood. Meds Home Medications and Allergies Home Medications Medication Instructions Recorded Confirmed Type aspirin 81 mg PO Q DAY #0 02/06/08 12/04/19 History vitamins A,C,C-dukz-lfygmf 14,320 2 cap PO ONCE #180 caplet 08/09/18 03/15/19 Rx unit-226 mg-200 unit capsule magnesium 250 mg tablet 250 mg PO DAILY 12/29/18 12/04/19 History vit C 250 mg-E 200 unit-zinc 40 1 tab PO BID 01/13/19 12/04/19 History mg-copper 1 qx-ucsqoq-zwgagz capsule albuterol sulfate 90 mcg/actuation 2 inhalation INHALATION Q4-6H PRN 08/31/19 12/04/19 Rx breath activated powder #1 each inhaler,sensor metformin 500 mg tablet 500 mg PO DAILY #90 tab 10/27/19 12/04/19 Rx ramipril 5 mg capsule 5 mg PO QDAY #90 cap 10/27/19 12/04/19 Rx Allergies Allergy/AdvReac Type Severity Reaction Status Date / Time No Known Drug Allergies Allergy Verified 01/13/19 11:25 Exam Vital Signs (past 8 hours): - 12/04/19 07:25 12/04/19 07:40 12/04/19 07:42 Temperature 98.6 F Pulse Rate 69 70 68 Respiratory Rate 13 20 17 Blood Pressure 129/71 131/67 Pulse Oximetry 97 98 98 12/04/19 07:50 12/04/19 08:00 12/04/19 08:01 Temperature Pulse Rate 71 75 72 Respiratory Rate 25 H 21 17 Blood Pressure 135/66 Pulse Oximetry 97 97 97 12/04/19 08:10 12/04/19 08:24 12/04/19 08:30 Temperature Pulse Rate 78 80 77 Respiratory Rate 22 Blood Pressure Pulse Oximetry 97 97 98 12/04/19 08:32 12/04/19 08:40 12/04/19 09:02 Temperature Pulse Rate 78 81 83 Respiratory Rate Blood Pressure 127/60 Pulse Oximetry 97 98 89 L 12/04/19 09:10 12/04/19 09:19 12/04/19 09:20 Temperature 98.2 F Pulse Rate 81 80 78 Respiratory Rate Blood Pressure 130/58 L Pulse Oximetry 99 99 99 12/04/19 09:30 12/04/19 09:31 12/04/19 09:50 Temperature 96.8 F L Pulse Rate 70 77 78 Respiratory Rate 16 Blood Pressure 129/61 157/82 H Pulse Oximetry 96 95 96 12/04/19 11:28 12/04/19 12:00 Temperature 98.1 F Pulse Rate 89 Respiratory Rate 16 Blood Pressure 150/64 H Pulse Oximetry 98 97 Oxygen Delivery Method Room Air Oxygen Flow Rate [address] scan - abdomen: Radiologist's impression: [address] [address] [address] Scan Report Signed Patient: Rupa Lee KMR#: [id number] : 3Acct:[id number] Age/Sex: 79 / FDate of Service: 12/04/19 Loc: ED Accession Number: [id number] Procedure: CT abdomen pelvis w con Ordering Provider: Declan Trotter MD PROCEDURE: CT ABDOMEN PELVIS W CON INDICATIONS: GI bleed, orthosttic hypotension TECHNIQUE: After the administration of intravenous contrast, 5 mm thick sections acquired from the diaphragm to the symphysis. 5 mm coronal and sagittal reformats were acquired. For radiation dose reduction, the following was used: automated exposure control, adjustment of mA and/or kV according to patient size. COMPARISON: None. FINDINGS: Image quality: Excellent. ABDOMEN: Lung bases: Lung bases are clear. Heart size is normal. Solid organs: Liver is normal in size and enhancement. Gallbladder is unremarkable. Biliary system is non dilated. Pancreas enhances normally. Spleen is normal in size and enhancement. No adrenal nodules. Kidneys demonstrate normal size and enhancement, without hydronephrosis. Nonobstructing 5 mm stone, junction between right middle pole and right lower pole. Peritoneum and bowel: Bowel loops demonstrate normal wall thickness and caliber. No free fluid or air. Moderate fecal debris. No acute contrast extravasation into bowel noted. Scattered diverticulosis without evidence of diverticulitis. Nodes and vessels: No retroperitoneal or mesenteric adenopathy by size c riteria. Aorta and inferior vena cava are normal in size. Miscellaneous: No ventral hernias. PELVIS: Genitourinary: Bladder wall thickness is normal. Miscellaneous: No inguinal hernias or adenopathy. Remote hysterectomy. Bones: No suspicious bony lesions. No acute vertebral body compression fractures. Chronic T11 compression. Multilevel lumbar degenerative changes with multilevel canal stenosis, severe at L4-L5. IMPRESSION: 1. No evidence of acute abdominal process. 2. Old compression fracture. 3. 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 4. Nonobstructing right renal stone. Dictated by: Tyler Contreras M.D. on 12/04/2019 at 8:12 Approved by: Tyler Contreras M.D. on 12/04/2019 at 8:17 Labs Result Diagrams: 12/04/19 07:40 12/04/19 07:40 Labs: Laboratory Results - last 24 hr 12/04/19 12/04/19 12/04/19 07:40 07:40 07:40 WBC 8.9 RBC 4.20 Hgb 12.6 Hct 37.5 MCV 89.2 MCH 29.9 MCHC 33.5 RDW 13.2 Plt Count 285 Neut % (Auto) 57.5 Lymph % (Auto) 31.3 [place] % (Auto) 8.6 Eos % (Auto) 2.1 Baso % (Auto) 0.5 Neut # (Auto) 5100 Lymph # (Auto) 2800 [place] # (Auto) 800 Eos # (Auto) 200 Baso # (Auto) 0 PT 12.2 INR 1.1 APTT 26 L Sodium 136 L Potassium 4.9 Chloride 103 Carbon Dioxide 30 BUN 16 Creatinine 0.91 Estimated GFR 59.9 L BUN/Creatinine Ratio 17.6 Glucose 202 H Lactate Calcium 10.0 Total Bilirubin 0.4 AST 23 ALT 19 Alkaline Phosphatase 104 Lactate Dehydrogenase 338 Total Protein 6.6 Albumin 3.7 Globulin 2.9 Albumin/Globulin Ratio 1.3 Lipase 80 Blood Type Antibody Screen 12/04/19 12/04/19 07:40 07:40 WBC RBC Hgb Hct MCV MCH MCHC RDW Plt Count Neut % (Auto) Lymph % (Auto) [place] % (Auto) Eos % (Auto) Baso % (Auto) Neut # (Auto) Lymph # (Auto) [place] # (Auto) Eos # (Auto) Baso # (Auto) PT INR APTT Sodium Potassium Chloride Carbon Dioxide BUN Creatinine Estimated GFR BUN/Creatinine Ratio Glucose Lactate 1.2 Calcium Total Bilirubin AST ALT Alkaline Phosphatase Lactate Dehydrogenase Total Protein Albumin Globulin Albumin/Globulin Ratio Lipase Blood Type O Positive Antibody Screen Negative Assessment & Plan Assessment and plan (1) Essential hypertension: Status: Chronic (2) Pre-diabetes: Status: Chronic (3) Gout: Status: Chronic (4) Colon polyps: Status: Chronic (5) H/O diverticulitis of colon: Status: Acute (6) Acute GI hemorrhage: Status: Acute (7) Obesity, morbid, BMI 40.0-49.9: Status: Acute Assessment & Plan narrative: This is a 79 yo woman with PMH of HTN, DM, obesity, colon polyps, and diverticulitis who presented after an episode of bright red blood per rectum this morning. She is admitted with GI bleeding, likely lower. Had a long discussion with her, and she is concerned that she has delayed her follow-up colonoscopy longer than was recommended. She does not have any epigastric symptoms, but has never had an EGD. She says she feels fine, and is considering whether not she may be able to have her endoscopies as an outpatient. She is concerned about having a male DrWen do her colonoscopy, which is likely to be the case if it is done here tomorrow as I am not here and my partners or male. I have encouraged the patient that she had a significant enough bleed that we should at least repeat labs on her once she is hydrated, a nd observe her for any further bleeding over the course of the day. Depending on the results of her repeat labs, and any further bleeding, she may elect to go home, and schedule her endoscopy as an outpatient. However, I have ordered bowel prep for her, and discussed with the hospitalist my recommendations. If she is discharged without having her endoscopy on this admission, she should have strict return precautions for any further bleeding or symptoms of anemia. Plan: Repeat labs Clear liquid diet PPI Bowel prep if patient decides to stay Strict return precautions and call [facility] for colonoscopy scheduling tomorrow to be scheduled as soon as possible, maybe this week or next week Will need COVID-19 test if she decides to stay for colonoscopy COVID-19 COVID-19 status: Not tested Time Spent With Patient Time with patient: Greater than 35 minutes
[2019-12-04] MEDS: INSULIN ASPART 100 UNIT/ML INSULN PEN SUBCUT ×2 (12:51→16:41)
[2019-12-04 13:47] LABS: Add Manual Diff / Slide Review NO; Basophils Absolute Auto 100 /uL (0-100); Basophils Percent Auto 0.5 % (0-2); Eosinophils Absolute Auto 0 /uL (0-450); Eosinophils Percent Auto 0.3 % (2-4); Hematocrit 35.6 % (36-46); Hemoglobin 11.8 g/dL (12.0-16.0); Lymphocytes Absolute Auto 1900 /uL (1100-4500); Lymphocytes Percent Auto 18.9 % (25-40); Mean Corpuscular HGB Conc 33.3 % (30-36); Mean Corpuscular Hemoglobin 29.9 PG (26-34); Mean Corpuscular Volume 89.9 fL (80-100); Monocytes Absolute Auto 700 /uL (0-900); Monocytes Percent Auto 6.6 % (3-14); Neutrophils Absolute Auto 7500 /uL (1500-7000); Neutrophils Percent Auto 73.7 % (50-75); Platelet Count 275 X10^3/uL (150-400); Red Blood Cell Count 3.96 X10^6/uL (4.0-5.2); Red Cell Distribution Width 13.6 % (11.6-14.8); White Blood Cell Count 10.2 X10^3/uL (4.5-11.0)
[2019-12-04] MEDS: PEG3350/SOD SULF,BICARB,CL/KCL 4,000 ML SOLUTION 4000 ML PO (14:00)
[2019-12-04 14:51] LABS: Appearance Urine UA CLEAR; Bilirubin Urine UA NEGATIVE (NEGATIVE); Color Urine UA YELLOW; Glucose Urine UA NEGATIVE (Negative); Ketones Urine UA NEGATIVE (NEGATIVE); Leukocyte Esterase Urine UA NEGATIVE (NEGATIVE); Nitrite Urine UA NEGATIVE (Negative); Occult Blood Urine UA NEGATIVE (Negative); Protein Urine UA NEGATIVE (Negative); Specific Gravity Urine UA <=1.005 (1.000-1.035); Urobilinogen Urine UA 0.2 E.U./dL (0.2)
[2019-12-04 15:00] LABS: Bacteria Urine Few (2-10); RBC Urine 0-1/HPF (0-5/HPF); Renal Epithelial Cells Urine 0-1/HPF (0-1/HPF); Squamous Epithelial Cell Urine 1-5 /HPF (0-5/HPF); WBC Urine 1-5/HPF (0-5/HPF)
[2019-12-04 15:01] LABS: Culture Indicated Urine Cult Not Indicated
[2019-12-04 15:52] LABS: COVID19 -Nasal RAPID Negative (Negative)
[2019-12-04] MEDS: PANTOPRAZOLE 40 MG VIAL IV (21:37)
[2019-12-04] MEDS: ACETAMINOPHEN 325 MG TABLET 650 MG PO (21:41)
[2019-12-04 22:15] LABS: Hematocrit 34.4 % (36-46); Hemoglobin 11.4 g/dL (12.0-16.0)
--- NOTE | 2019-12-04 23:30 | PC.NURSE ---
Addendum entered by Laxmi Traylor R.N. 12/05/19 06:23: Ben STREETER, is aware of bloody stools during this shift. Addendum entered by Laxmi Traylor R.N. 12/05/19 04:13: Noted O2 sat dropping down into low 80's so started on oxygen at 1L/min per NC Addendum entered by Laxmi Traylor R.N. 12/05/19 02:41: Up to bathroom and passed 400cc dark red liquid stool with several clots noted. Addendum entered by Laxmi Traylor R.N. 12/05/19 01:22: Up to bathroom and had 550cc dark red liquid stool followed by a 2nd 550cc bright red liquid stool. Original Note: Patient is alert and oriented. Breath sounds CTA with RA sat of 96%. Reports hx of sleep apnea and did not bring CPAP with so placed on continuous oximetry overnight to determine if oxygen is needed. HRR; on telemetry with last reading being SR. BP elevated at 157/89. Denies nausea. BT present and abdomen is soft; reports loose stools due to Go-Lytely prep and states last BM was clear except for flecks of stool. Denies dysuria, frequency or urgency. Moves self in bed. Reports feeling weak and states she had fall earlier this morning prior to presenting to ER. Fall risk score is high and bed/chair alarm activated and patient reminded to call for assistance prior to getting out of bed. States right great toe is numb and thinks may be related to earlier fall. Complains of 1/10 headache; declines need for further pain medication. Bilateral calf SCD's applied as per MD order.
[2019-12-05] VITALS (12 sets, daily range): BP systolic 124–160; BP diastolic 67–88; PULSE 73–95; RESP 16–22; TEMP 35.9–36.8; O2SAT 92–100; BMI 39.9
[2019-12-05 05:45] LABS: Add Manual Diff / Slide Review NO; Basophils Absolute Auto 100 /uL (0-100); Basophils Percent Auto 1.2 % (0-2); Eosinophils Absolute Auto 100 /uL (0-450); Eosinophils Percent Auto 1.2 % (2-4); Hematocrit 30.3 % (36-46); Hemoglobin 10.3 g/dL (12.0-16.0); Lymphocytes Absolute Auto 2300 /uL (1100-4500); Lymphocytes Percent Auto 26.3 % (25-40); Mean Corpuscular HGB Conc 33.9 % (30-36); Mean Corpuscular Hemoglobin 30.2 PG (26-34); Monocytes Absolute Auto 600 /uL (0-900); Monocytes Percent Auto 6.9 % (3-14); Neutrophils Absolute Auto 5700 /uL (1500-7000); Neutrophils Percent Auto 64.4 % (50-75); Platelet Count 253 X10^3/uL (150-400); Red Blood Cell Count 3.41 X10^6/uL (4.0-5.2); Red Cell Distribution Width 13.4 % (11.6-14.8); White Blood Cell Count 8.8 X10^3/uL (4.5-11.0)
[2019-12-05 05:54] LABS: BUN Creatinine Ratio 10.5 (6-22); Blood Urea Nitrogen 8 mg/dL (7-17); Calcium 9.2 mg/dL (8.4-10.2); Carbon Dioxide 28 mmol/L (22-32); Chloride 106 mmol/L (98-107); Estimated Glomerular Filt Rate > 60.0 mL/min (>60); Glucose 163 mg/dL (80-110); HEMOLYSIS < 15 (0-50); Magnesium 1.6 mg/dL (1.6-2.3); Potassium 4.1 mmol/L (3.4-5.1); Sodium 137 mmol/L (137-145)
[2019-12-05 05:58] LABS: Hemoglobin A1C% w Est Avg Glu 7.1 % (4.0-6.0)
[2019-12-05] MEDS: LACTATED RINGERS 1,000 ML 100 ML IV (07:16)
[2019-12-05] MEDS: PANTOPRAZOLE 40 MG VIAL IV (08:45)
[2019-12-05] MEDS: INSULIN ASPART 100 UNIT/ML INSULN PEN SUBCUT ×2 (08:45→12:46)
[2019-12-05] MEDS: LACTATED RINGERS 1,000 ML 42 ML IV (09:48)
--- NOTE | 2019-12-05 10:05 | PC.NURSE ---
Addendum entered by Minerva Areavlo R.N. 12/05/19 12:09: Return from Colonoscopy/EGD procedure, awake and alert, ambulated to BR. Mixed urine/watery stool, bright red upon arrival, 200 ml. 100 ml void, clear yellow urine. VSS. SCDs placed. Original Note: Day shift note: Patient sitting up in chair, pleasantly calm. Dr. Delgado at bedside. Up to BR, no BM. Tele: NSR. Off floor at 0945 to Colonoscopy procedure with Raiza BARKER via .
[2019-12-05] MEDS: MIDAZOLAM 5 MG/5 ML VIAL IV ×2 (11:03→11:13)
[2019-12-05] MEDS: fentaNYL 250 MCG/5 ML INJ IV ×2 (11:03→11:13)
[2019-12-05] MEDS: LIDOCAINE 4% SOLN 50 ML 20 ML TOP (11:17)
--- NOTE | 2019-12-05 11:40 | CM.DANOTE ---
Addendum entered by AVANI Zeng 12/05/19 14:09: ADD: SW checked in with RN and pt back from scope and being observed but no concerns noted and plan is for pt to still d/c this afternoon home with no needs and only outpt follow up. BF Original Note: Patient is a 79 year old female who was admitted on 12/04/19 for G.I. Bleed. Pt has MCR and PRE DIM for insurance and her PCP is Dr. Alysia Kennedy. EMR was reviewed. Per Surgeon Consult, pt here for observation of bleeding and to have bowel prep for likely colonoscopy. Per RN, pt now off the floor for scope and surgeon has placed discharge orders for likely d/c later today after scope. SW attempted bedside assessment but pt still off the floor for procedure. Pt resides in [place] and is independent with ADL's at baseline. Plan: SW to follow after surgical scope today for bedside assessment to confirm pt safe for d/c home with local support later today. AVANI Zeng Discharge Planning/Care Management CM Discharge Assessment Start: 12/05/19 11:38 Freq: Status: Active Protocol: Document 12/05/19 11:38 BF (Rec: 12/05/19 11:39 [id number]) Discharge Planning Assessment Assigned Table Tender AVANI Soto Advance Directives? No Advance Directives on File No History Provided By Patient,Medical Record Has Patient been admitted in last 30 No days? Prior Living Arrangements House Household Members none Type of transporation used prior to Drives own vehicle admit Independent with ADL's Yes Is patient alert and oriented? Yes Caregiver for Another No Barriers to Discharge No Discharge Plan Home Transportation Arrangement Likely friend to provide transport at d/c Referrals Initiated None needed Review Status In Process Please Provide Date Initial DC 12/05/19 Assessment Was Performed Next Review Type Continued Stay Review
--- NOTE | 2019-12-05 11:46 | PM.OP.ENDO ---
Operative Date/Time/Diagnoses Date of procedure: 12/05/19 Time of procedure: 11:46 Pre-op diagnosis: Rectal bleed Post-op diagnosis: same Procedure & Clinicians Study performed: Esophagoduodenoscopy Colonoscopy Same procedure as scheduled: Yes Indications: 79-year-old woman presents with rectal bleeding here for a diagnostic EGD and colonoscopy Surgeon: Gary Delgado Procedure Notes SCOAP/Timeout: Performed Procedure in detail: Patient placed in left lateral decubitus position. Time out was performed. Procedural sedation was administered with Versed and Fentanyl. A bite block was placed. the scope was inserted into the mouth and advanced through the esophagus and into the stomach. The pylorus was intubated and the duodenum was normal. The scope was retroflexed within the stomach and there was no hiatal hernia. No ulcers, or gastritis. The scope was withdrawn into the esophagus the Z line was seen at 35 cm from the incisions. There was no vidal's esophagitis or masses or strictures. Stomach was desufflated and scope removed. Patient tolerated procedure well Patient placed in left lateral decubitus position. Time out was performed. Procedural sedation was administered with Versed and Fentanyl. A rectal exam demonstrated external hemorrhoids no internal masses. Colonoscopy scope was placed into the rectum and advanced through the colon to the cecum. There was large volume of old blood within the sigmoid colon. The ileocecal valve was identified. The scope was then slowly withdrawn examining colon thoroughly in all directions. There did appear to be blood throughout the entire colon all the way to the level of the cecum however the majority of that seemed to be within the sigmoid and related to extensive sigmoid diverticulosis. There was no evidence of active hemorrhage there was only old clot that was extensively irrigated and suctioned out. No masses or polyps were identified. There was grade 1 internal hemorrhoids Scope withdrawal time: 10 Sedation minutes: 40 Findings: diverticulosis and other findings (Evidence of prior bleeding) Complications: none Impression: Diverticulosis, GI bleed without evidence of active bleeding Post-procedure Recommendations: Colonscopy in 10 years Plan for aftercare: Resume regular diet blood counts remained stable may discharge Disposition: Acute Care
--- NOTE | 2019-12-05 14:16 | P.DS_ITS ---
History of Present Illness History of Present Illness Date Patient Seen: 12/04/19 Chief complaint: GI Bleed Narrative: Written by Dr. Quintanilla: Rupa Lee is a 79-year-old female with past medical history of hypertension, diabetes, obesity, and diverticulitis who presented after an episode of bright red blood per rectum this morning. She denies any prior episodes of GI bleeding, and states that prior to this morning she had had no fatigue, weakness, shortness of breath, dyspnea on exertion, dark stools, or hematemesis. Her last colonoscopy was years ago (per chart review appears to be 2011). She had been having some right hip pain prior to about a week ago, but this is fairly chronic and had improved as she had restarted aquatic therapy. She has actually gained some weight due to being isolated during the COVID-19 epidemic, but has lost some of this recently. She had a total of 2 episodes of bloody bowel movements at home, and then had another in the emergency room. She describes them as large and red. In the emergency room, patient's vital signs were unremarkable. Initial laboratory evaluation showed a hemoglobin of 12.6, down somewhat from her previous findings were her hemoglobin was 14. Her MCV is normal at 89. Coagulation studies were unremarkable. Chemistries showed a glucose of 202, but were otherwise unremarkable. Lactic acid was 1.2, and T bili was 0.4. Chest x- ray was done which was unremarkable. CT scan of her abdomen showed no acute processes, an old compression fracture, multilevel canal stenosis, and an right nonobstructing kidney stone. EKG was unremarkable. Patient was admitted under observation status for likely lower GI bleeding. Discharge Providers Provider Date of admission: 12/05/19 10:27 Discharge Date: 12/05/19 Primary care physician: Alysia Rhodes DO Discharge provider: Karen Ragland DO Summary Hospital Course Discharge Diagnosis: 1. Acute GI bleed, likely diverticular, present on admission. Resolved. 2. Hypertension, chronic, present on admission. Stable. 3. Diabetes mellitus type 2, non-insulin using, chronic, present on admission. Stable. 4. Morbid obesity, chronic, present on admission. Stable. Hospital Course: Rupa Lee is a 79-year-old female with past medical history significant for hypertension, diabetes mellitus type 2, non-insulin using, morbid obesity, and diverticulitis who presented the ED with bright red blood per rectum. 1. Acute GI bleed, likely diverticular, present on admission. Resolved. -Patient presented after 3 episodes of reported large (unquantifiable) amount of bright red blood per rectum. -Initial hemoglobin 12.6. Baseline hemoglobin 13-14. Hemoglobin trended down to 10.3 with several red bloody BMs and IV fluids. Patient hemodynamically stable and GI bleeding has resolved. -Received PPI and octreotide in ED. Discontinued PPI as patient has no upper source of bleeding. Could consider starting famotidine on outpatient basis if patient was to start taking NSAIDs regularly other than her aspirin 81 mg daily. -Consulted general surgery, Dr. Delgado, who performed EGD and colonoscopy with no source of bleeding discovered. Patient likely had a diverticular bleed and recommended bowel regimen with Colace 100 mg twice daily and MiraLax 17 g daily and titrated to effect. Suspect that she is somewhat dehydrated at this point, and hemoglobin may lag behind her bleeding given acute onset this morning. Will continue to trend over the course of today. 2. Hypertension, chronic, present on admission. Stable. -Held home ramipril 5 mg daily and restarted at time of discharge. 3. Diabetes mellitus type 2, non-insulin using, chronic, present on admission. Stable. -Hemoglobin A1c 7.1% which is 1% increase than previous hemoglobin A1c of 6.3% in 05/2019. She reports weight gain due to COVID-19 and [id number] order with lack of exercise and dietary changes. -Held metformin and restarted time of discharge. -Continued ACHS blood glucose checks and low-dose correctional scale insulin. -Continued heart healthy/carbohydrate consistent diet. 4. Morbid obesity, chronic, present on admission. Stable. -BMI 40.5. -Patient is at increased risk of complications due to her obesity in case of procedures. -Counseled the patient on lifestyle modification including: Diet and exercise. Recommended the book The Diabetic Solution by: Leonard Merino MD. -Consulted relay shop supervisor and we appreciate her time and recommendations. Exam Vital Signs (past 8 hours): - 12/05/19 08:00 12/05/19 09:00 12/05/19 09:36 Temperature 97.8 F 98.1 F Pulse Rate 80 87 Respiratory Rate 16 16 Blood Pressure 160/80 H 157/88 H Pulse Oximetry 98 94 97 07/06/20 11:40 12/05/19 11:45 12/05/19 11:50 Temperature 97.7 F 96.6 F L 97.0 F L Pulse Rate 90 95 H 88 Respiratory Rate 19 20 22 Blood Pressure 147/75 H 146/76 H 153/77 H Pulse Oximetry 95 99 97 12/05/19 12:00 12/05/19 13:00 Temperature 96.8 F L Pulse Rate 81 Respiratory Rate 16 Blood Pressure 140/71 Pulse Oximetry 93 96 Oxygen Delivery Method Nasal Cannula Oxygen Flow Rate 1 Narrative Exam Narrative: General: Older female sitting in bedside chair and in no acute distress, well- developed, well-nourished, appropriately interactive. HEENT: Normocephalic, atraumatic. External ears without defect. Pupils equal, round, and reactive to light. Anicteric sclerae, moist conjunctivae, and no lid lag. Oropharynx free of erythema and cobble stoning with moist mucosa. Neck: Supple with full range of motion. No lymphadenopathy or thyromegaly. Cardiovascular: Regular rate and rhythm without murmurs, rubs, or gallops appreciated. Pulmonary: Clear to auscultation bilaterally without crackles, wheezes, or rhonchi. Normal respiratory effort with no use of accessory muscles. Abdomen: Soft, obese, bowel sounds present, nontender, nondistended. No hep atosplenomegaly or masses appreciated. Extremities: No clubbing, cyanosis, or edema. Skin: Normal temperature, turgor, and texture; no rash, ulcers, or subcutaneous nodules appreciated. Neurological: Cranial nerves grossly intact. Psychiatric: Normal mood and affect. Alert and oriented to person, place, and time. Objective Labs Result Diagrams: 12/05/19 05:25 12/05/19 05:25 Labs: Laboratory Results - last 24 hr 12/04/19 12/04/19 12/04/19 14:05 14:45 21:55 WBC RBC Hgb 11.4 L Hct 34.4 L MCV MCH MCHC RDW Plt Count Neut % (Auto) Lymph % (Auto) [place] % (Auto) Eos % (Auto) Baso % (Auto) Neut # (Auto) Lymph # (Auto) [place] # (Auto) Eos # (Auto) Baso # (Auto) Sodium Potassium Chloride Carbon Dioxide BUN Creatinine Estimated GFR BUN/Creatinine Ratio Glucose Hemoglobin A1c Calcium Magnesium Urine Color Yellow Urine Appearance Clear Urine pH 7.0 Ur Specific [place] <=1.005 Urine Protein Negative Urine Glucose (UA) Negative Urine Ketones Negative Urine Occult Blood Negative Urine Nitrate Negative Urine Bilirubin Negative Urine Urobilinogen 0.2 Ur Leukocyte Esterase Negative Urine RBC 0-1/hpf Urine WBC 1-5/hpf Ur Squamous Epith Cells 1-5 /hpf Ur Renal Epithelial Cell 0-1/hpf Urine Bacteria Few (2-10) H Ur Culture Indicated? Cult not indicated COVID-19 PCR Negative 12/05/19 12/05/19 12/05/19 05:25 05:25 05:25 WBC 8.8 RBC 3.41 L Hgb 10.3 L Hct 30.3 L MCV 89.0 MCH 30.2 MCHC 33.9 RDW 13.4 Plt Count 253 Neut % (Auto) 64.4 Lymph % (Auto) 26.3 [place] % (Auto) 6.9 Eos % (Auto) 1.2 L Baso % (Auto) 1.2 Neut # (Auto) 5700 Lymph # (Auto) 2300 [place] # (Auto) 600 Eos # (Auto) 100 Baso # (Auto) 100 Sodium 137 Potassium 4.1 Chloride 106 Carbon Dioxide 28 BUN 8 Creatinine 0.76 Estimated GFR > 60.0 BUN/Creatinine Ratio 10.5 Glucose 163 H Hemoglobin A1c 7.1 H Calcium 9.2 Magnesium 1.6 Urine Color Urine Appearance Urine pH Ur Specific [place] Urine Protein Urine Glucose (UA) Urine Ketones Urine Occult Blood Urine Nitrate Urine Bilirubin Urine Urobilinogen Ur Leukocyte Esterase Urine RBC Urine WBC Ur Squamous Epith Cells Ur Renal Epithelial Cell Urine Bacteria Ur Culture Indicated? COVID-19 PCR Discharge Plan Discharge Plan Patient Disposition: Home Discharge comment: You are being discharged home. Your EGD and colonoscopy were normal and you likely had a diverticular bleed. Please try to keep your bowels regular and would recommend Colace 100 mg twice daily and MiraLax 17 g daily and titrated to effect. Recommend fiber through your diet (roughage or green leafy vegetables) as excessive fiber with supplementation such as Metamucil can actually cause constipation if consuming too much and/or not consuming enough water. Please follow-up with your primary care physician, Dr. Rhodes, at your scheduled appointment regarding your hospitalization. Discharge orders & Medications Prescriptions: New docusate sodium [Colace] 100 mg capsule 100 mg PO BID Qty: 60 RF: 0 polyethylene glycol 3350 [Miralax] 17 gram/dose powder 17 gram PO DAILY Qty: 238 RF: 0 Continued aspirin 81 mg Tablet,Chewable 81 mg PO Q DAY Qty: 0 RF: 0 PreserVision AREDS-2 [id number] ns-[id number]-vc-mg capsule 1 tab PO BID RF: 0 Proair Digihaler 90 mcg/actuation aero powdr breath act w/sensor 2 inhalation INHALATION Q4-6H PRN (Reason: shortness of breath or wheezing) Qty: 1 RF: 3 metformin 500 mg tablet 500 mg PO DAILY Qty: 90 RF: 0 ramipril [Altace] 5 mg capsule 5 mg PO QDAY Qty: 90 RF: 0 ICaps AREDS 14,320-226-200 qprk-nx-[id number] capsule 2 cap PO ONCE Qty: 180 RF: 0 magnesium 250 mg tablet 250 mg PO DAILY RF: 0 Follow up/Referrals: Alysia Rhodes DO [Primary Care Provider] - 12/13/19 3:30 pm (appt:12/12 @ 3:[address] rhodes please arrive 15 minutes prior to your scheduled appointment) Diet/Activity/Treatments Diet: Carb-consistent/Diabetic, Low-fat, Low-sodium and Low-cholesterol Activity: Activity as tolerated Visit Report/Discharge Packet Instructions: Nonsteroidal Anti-inflammatory Drugs (Alternative Therapy), DI for Constipation, DI for Diverticulosis Visit Report Forms: Patient Portal/API, Stroke Signs & Symptoms Discharge Data Primary Care Provider: Alysia Rhodes Quality VTE Deep Vein Thrombosis/Pulmonary Embolism Present on Admission: No
--- NOTE | 2019-12-05 15:25 | DIET.PN ---
Dietary Progress Note Assessment: Ms. Lee is a 79-year-old female with past medical history of hypertension, diabetes, obesity, and diverticulitis who presented after an episode of bright red blood per rectum this morning. She is admitted with GI bleeding. She takes ONS metamusil for chronic constipation. She reports controlled diabetes maintaining an A1c in the low 6% until Covid-19. She admits to changes in her eating habits as well as lack of physical activity. She is aware her labs are elevated and states she is ready to get back on her diet. She has had formal diabetes education in the past and is currently on low dose metformin. HT: 162.56cm WT: 105.5kg BMI: 39.9 Labs: A1c: 7.1 (6.3- 05/19) MNA: 14 Adilson: 23 Nutrition Diagnosis: Altered Nutrition related labs related to impaired glucose metabolism, lack of previous exposure to accurate nutrition information as evidenced by pt report, dx of diabetes, previous diet high in refined carbohydrates.? Interventions: 1. Discussed the effect of carbohydrates/protein/fat on blood sugar control.? Stressed importance of consistent carbohydrate intake at each meal and provided instructions for recommended servings/portions of carbohydrates/protein per meal. Provided pt with educational material. 2. Discussed the difference between simple versus complex carbohydrates and the effect of fiber on blood sugar control.? Discussed various methods to increase fiber content in diet. 3. Discussed healthy weight loss goals of 1-2lbs per week through diet and exercise.? Pt agreeable to walking at least 30 minutes daily. 4. Recommend monitoring fasting and alternating 2 hr PP mealtime glucose. Diet Order: CCD EER: 1500 (15cal/kg); Pro: 105g (1.0 g/kg) Monitoring/Evaluations: Pt will request referral to outpatient diabetes education program at [facility].
--- NOTE | 2019-12-05 17:46 | PC.NURSE ---
discharge/evening Shift Note_ Patient D/C'ed home. discharge instructions and educations reviewed with patient andsigned. IV line removed and tele monitor removed.Patient dressed self and packed up personal belongings. Patient left via wheelchair with all personal belongs with SENIOR LIBRARIAN and daughter at 1545.
== END 2019-12-05 17:58 | disposition home or self-care (01) | DRG 378 ==
LOC: ED 09:06 → AC 10:51
PROVIDERS: Surgery; Admitting Provider Internal Medicine; Emergency Provider Emergency Medicine; PCP Family Medicine; Referring Provider Emergency Medicine; Visit Provider Internal Medicine
PROC: 0DJ08ZZ Inspection of Upper Intestinal Tract, Via Natural or Artificial Opening Endoscopic (ICD-10-PCS; CPT 43235; principal; 2019-12-05 10:45)
PROC: 0DJD8ZZ Inspection of Lower Intestinal Tract, Via Natural or Artificial Opening Endoscopic (ICD-10-PCS; CPT 45378; 2019-12-05 10:45)
DX: K57.31 Diverticulosis of large intestine without perforation or abscess with bleeding (principal); Z68.41 Body mass index [BMI] 40.0-44.9, adult; E66.01 Morbid (severe) obesity due to excess calories; I10 Essential (primary) hypertension; E11.9 Type 2 diabetes mellitus without complications; G47.33 Obstructive sleep apnea (adult) (pediatric); Z79.84 Long term (current) use of oral hypoglycemic drugs; Z11.59 Encounter for screening for other viral diseases
CPT/HCPCS: 36415; 71045; 74177; 80048; 80053; 81001; 82962; 83036; 83605; 83615; 83690; 83735; 85014; 85018; 85025; 85610; 85730; 86850; 86900; 86901; 87635; 93005; 96361; 96374; 96375; 99284; G0378; C9113; J2250; J2354; J3010

== ENCOUNTER → 2020-03-12 08:46 | Outpatient (CLI) | payer MEDICARE, OTHER, SELFPAY ==
[2019-12-04 09:50] VITALS: BMI 40.4
[2020-03-12 09:07] LABS: Add Manual Diff / Slide Review NO; Basophils Absolute Auto 100 /uL (0-100); Basophils Percent Auto 0.6 % (0-2); Eosinophils Absolute Auto 200 /uL (0-450); Hematocrit 40.3 % (36-46); Hemoglobin 13.6 g/dL (12.0-16.0); Lymphocytes Absolute Auto 2400 /uL (1100-4500); Mean Corpuscular HGB Conc 33.7 % (30-36); Mean Corpuscular Hemoglobin 29.8 PG (26-34); Mean Corpuscular Volume 88.4 fL (80-100); Monocytes Absolute Auto 800 /uL (0-900); Monocytes Percent Auto 8.7 % (3-14); Neutrophils Absolute Auto 5500 /uL (1500-7000); Neutrophils Percent Auto 61.7 % (50-75); Platelet Count 250 X10^3/uL (150-400); Red Blood Cell Count 4.55 X10^6/uL (4.0-5.2)
[2020-03-12 09:32] LABS: BUN Creatinine Ratio 16.7 (6-22); Blood Urea Nitrogen 15 mg/dL (7-17); Carbon Dioxide 31 mmol/L (22-32); Chloride 103 mmol/L (98-107); Estimated Glomerular Filt Rate > 60.0 mL/min (>60); Glucose 131 mg/dL (80-110); HEMOLYSIS < 15 (0-50); Potassium 4.4 mmol/L (3.4-5.1); Sodium 138 mmol/L (137-145)
[2020-03-12 09:47] LABS: Hemoglobin A1C% w Est Avg Glu 6.2 % (4.0-6.0)
[2020-03-12 10:25] LABS: Creatinine Urine Random 122.6 mg/dL
[2020-03-12 10:29] LABS: Microalbumi Creatinin Ratio Ur 5.7 ug/mg CR (<30); Microalbumin Urine Random 0.7 mg/dL (0-1.6)
== END ==
PROVIDERS: PCP Family Medicine; Referring Provider Family Medicine; Visit Provider Family Medicine
DX: E11.9 Type 2 diabetes mellitus without complications (principal)
CPT/HCPCS: 36415; 80048; 82043; 82570; 83036; 85025

== ENCOUNTER → 2020-06-11 08:34 | Outpatient (CLI) | payer MEDICARE, OTHER, SELFPAY ==
[2019-12-04 09:50] VITALS: BMI 40.4
[2020-06-11 10:12] LABS: HEMOLYSIS < 15 (0-50); Potassium 4.5 mmol/L (3.4-5.1)
[2020-06-11 10:13] LABS: Blood Urea Nitrogen 17 mg/dL (7-17); Calcium 9.8 mg/dL (8.4-10.2); Carbon Dioxide 33 mmol/L (22-32); Chloride 102 mmol/L (98-107); Estimated Glomerular Filt Rate > 60.0 mL/min (>60); Glucose 120 mg/dL (80-110); Sodium 135 mmol/L (137-145)
== END ==
PROVIDERS: PCP Family Medicine; Referring Provider Family Medicine; Visit Provider Family Medicine
DX: E11.9 Type 2 diabetes mellitus without complications (principal)
CPT/HCPCS: 36415; 80048; 83036

== ENCOUNTER → 2020-10-11 07:18 | Outpatient (CLI) | payer MEDICARE, OTHER, SELFPAY ==
[2019-12-04 09:50] VITALS: BMI 40.4
[2020-10-11 08:11] LABS: Hemoglobin A1C% w Est Avg Glu 5.8 % (4.0-6.0)
[2020-10-11 08:22] LABS: Add Manual Diff / Slide Review NO; Basophils Absolute Auto 0 /uL (0-100); Basophils Percent Auto 0.4 % (0-2); Eosinophils Absolute Auto 400 /uL (0-450); Eosinophils Percent Auto 3.5 % (2-4); Hematocrit 39.3 % (36-46); Hemoglobin 13.3 g/dL (12.0-16.0); Lymphocytes Absolute Auto 2600 /uL (1100-4500); Mean Corpuscular HGB Conc 33.8 % (30-36); Mean Corpuscular Hemoglobin 30.8 PG (26-34); Monocytes Absolute Auto 1000 /uL (0-900); Monocytes Percent Auto 9.5 % (3-14); Neutrophils Absolute Auto 6400 /uL (1500-7000); Neutrophils Percent Auto 61.6 % (50-75); Platelet Count 266 X10^3/uL (150-400); Red Blood Cell Count 4.32 X10^6/uL (4.0-5.2); Red Cell Distribution Width 13.8 % (11.6-14.8); White Blood Cell Count 10.4 X10^3/uL (4.5-11.0)
[2020-10-11 08:36] LABS: Alanine Aminotransferase 17 IU/L (<35); Albumin 3.9 g/dL (3.5-5.0); Albumin Globulin Ratio 1.5 (1.0-2.8); Alkaline Phosphatase 104 U/L (38-126); Aspartate Aminotransferase 22 IU/L (14-36); BUN Creatinine Ratio 20.8 (6-22); Bilirubin Total 0.5 mg/dL (0.2-1.3); Blood Urea Nitrogen 15 mg/dL (7-17); Calcium 9.9 mg/dL (8.4-10.2); Carbon Dioxide 28 mmol/L (22-32); Chloride 100 mmol/L (98-107); Estimated Glomerular Filt Rate > 60.0 mL/min (>60); Globulin 2.6 g/dL (1.7-4.1); Glucose 117 mg/dL (80-110); HEMOLYSIS < 15 (0-50); Potassium 4.3 mmol/L (3.4-5.1); Sodium 135 mmol/L (137-145); Total Protein 6.5 g/dL (6.3-8.2)
[2020-10-11 09:03] LABS: Thyroid Stimulating Hormone 3.14 uIU/mL (0.47-4.68)
== END ==
PROVIDERS: PCP Family Medicine; Referring Provider Family Medicine; Visit Provider Family Medicine
DX: E11.9 Type 2 diabetes mellitus without complications (principal); R53.83 Other fatigue
CPT/HCPCS: 36415; 80053; 83036; 84443; 85025

== ENCOUNTER → 2020-10-25 08:34 | Outpatient (CLI) | payer MEDICARE, OTHER, SELFPAY ==
[2020-10-16 09:42] VITALS: BMI 40.4
[2020-10-25 09:17] LABS: COVID19 -Nasal RAPID Negative (Negative)
== END ==
PROVIDERS: PCP Family Medicine; Visit Provider Family Medicine Sleep Medicine
DX: Z20.822 Contact with and (suspected) exposure to COVID-19 (principal); G47.33 Obstructive sleep apnea (adult) (pediatric)
CPT/HCPCS: 87635; 95811

== ENCOUNTER → 2020-12-13 11:13 | Outpatient (CLI) | payer MEDICARE, OTHER, SELFPAY ==
[2020-10-16 09:42] VITALS: BMI 40.4
--- NOTE | 2020-12-13 11:14 | DI.RAD.S_ITS ---
PROCEDURE: XR HIP W PEL IF DONE RT 2V INDICATIONS: acute R hip pain TECHNIQUE: AP pelvis with lateral view(s) of the right hip(s). COMPARISON: None. FINDINGS: Bones: No fracture or dislocation. Both hips have degenerative changes, severe on the right and moderate on the left. The sacroiliac joints are normal. The visualized lumbar spine has degenerative changes. Soft tissues: The visualized bowel gas pattern is normal. No suspicious soft tissue calcifications. IMPRESSION: Degenerative changes of both hips consistent with osteoarthritis, severe on the right and moderate on the left. Dictated by: Merritt Brady M.D. on 12/13/2020 at 14:57 Approved by: Merritt Brady M.D. on 12/13/2020 at 14:59
== END ==
PROVIDERS: PCP Family Medicine; Referring Provider Family Medicine; Visit Provider Family Medicine
DX: M25.551 Pain in right hip (principal)
CPT/HCPCS: 73502

== ENCOUNTER → 2021-01-15 11:44 | Outpatient (CLI) | payer MEDICARE, OTHER, SELFPAY ==
[2020-12-26 10:32] VITALS: BMI 40.4
[2021-01-15 11:54] LABS: Bacteria Urine None Seen; RBC Urine None Seen (0-5/HPF); WBC Urine None Seen (0-5/HPF)
[2021-01-15 12:15] LABS: Add Manual Diff / Slide Review NO; Basophils Absolute Auto 100 /uL (0-100); Basophils Percent Auto 0.9 % (0-2); Eosinophils Absolute Auto 100 /uL (0-450); Eosinophils Percent Auto 1.1 % (2-4); Hematocrit 40.4 % (36-46); Hemoglobin 13.4 g/dL (12.0-16.0); Lymphocytes Absolute Auto 2400 /uL (1100-4500); Lymphocytes Percent Auto 24.3 % (25-40); Mean Corpuscular HGB Conc 33.3 % (30-36); Mean Corpuscular Volume 90.3 fL (80-100); Monocytes Absolute Auto 700 /uL (0-900); Monocytes Percent Auto 7.5 % (3-14); Neutrophils Absolute Auto 6500 /uL (1500-7000); Neutrophils Percent Auto 66.2 % (50-75); Platelet Count 282 X10^3/uL (150-400); Red Blood Cell Count 4.47 X10^6/uL (4.0-5.2); Red Cell Distribution Width 13.8 % (11.6-14.8); White Blood Cell Count 9.7 X10^3/uL (4.5-11.0)
[2021-01-15 12:20] LABS: Appearance Urine UA CLEAR; Bilirubin Urine UA NEGATIVE (NEGATIVE); Color Urine UA YELLOW; Glucose Urine UA NEGATIVE (Negative); Ketones Urine UA NEGATIVE (NEGATIVE); Leukocyte Esterase Urine UA TRACE (NEGATIVE); Nitrite Urine UA NEGATIVE (Negative); Occult Blood Urine UA NEGATIVE (Negative); Protein Urine UA NEGATIVE (Negative); Specific Gravity Urine UA <=1.005 (1.000-1.035); Urobilinogen Urine UA 0.2 E.U./dL (0.2)
[2021-01-15 12:22] LABS: pH Urine UA 6.5 (4.5-8.0)
[2021-01-15 12:27] LABS: BUN Creatinine Ratio 18.4 (6-22); Blood Urea Nitrogen 14 mg/dL (7-17); Calcium 10.1 mg/dL (8.4-10.2); Carbon Dioxide 24 mmol/L (22-32); Chloride 103 mmol/L (98-107); Culture Indicated Urine Cult Not Indicated; Estimated Glomerular Filt Rate > 60.0 mL/min (>60); Glucose 116 mg/dL (80-110); HEMOLYSIS < 15 (0-50); Potassium 4.3 mmol/L (3.4-5.1); Sodium 136 mmol/L (137-145); Urine Comments Microscopic Normal
[2021-01-15 14:22] LABS: Uric Acid 6.7 mg/dL (2.5-6.2)
== END ==
PROVIDERS: PCP Family Medicine; Referring Provider Orthopaedic Surgery; Visit Provider Orthopaedic Surgery
DX: Z01.818 Encounter for other preprocedural examination (principal); R73.9 Hyperglycemia, unspecified; Z01.812 Encounter for preprocedural laboratory examination; N39.0 Urinary tract infection, site not specified
CPT/HCPCS: 36415; 80048; 81001; 83036; 84550; 85025; 93005; 93010

== ENCOUNTER → 2021-01-23 08:09 | Outpatient (CLI) | payer MEDICARE, OTHER, SELFPAY ==
[2020-12-26 10:32] VITALS: BMI 40.4
[2021-01-23 11:25] LABS: COVID19 -Nasal RAPID Negative (Negative)
== END ==
PROVIDERS: PCP Family Medicine; Visit Provider Physician Assistant
DX: Z20.822 Contact with and (suspected) exposure to COVID-19 (principal); Z01.812 Encounter for preprocedural laboratory examination
CPT/HCPCS: 87635; C9803

== ENCOUNTER 2021-01-25 12:39 | Observation (INO) | payer MEDICARE, OTHER, SELFPAY ==
[2020-12-26 10:32] VITALS: BMI 40.4
[2021-01-22 08:26] VITALS: BMI 36.0
[2021-01-24] VITALS (16 sets, daily range): BP systolic 68–152; BP diastolic 34–81; PULSE 53–97; RESP 14–18; TEMP 35.8–37.2; O2SAT 86–102; BMI 36.0
--- NOTE | 2021-01-24 07:27 | DI.RAD.S_ITS ---
PROCEDURE: XR HIP W PEL IF DONE RT 2V INDICATIONS: right RUBENS TECHNIQUE: 3 views of the hip were acquired. COMPARISON: [facility], , XR HIP W PEL IF DONE RT 2V, 12/13/2020, 11:19. FINDINGS: Bones: Status post right hip replacement. Postoperative changes are noted. There is no perihardware fracture or lucency. Soft tissues: No suspicious soft tissue calcifications or masses. IMPRESSION: Expected postoperative changes of right total hip arthroplasty. Dictated by: Merritt Brady M.D. on 01/24/2021 at 17:17 Approved by: Merritt Brady M.D. on 01/24/2021 at 17:18
[2021-01-24] MEDS: LACTATED RINGERS 1,000 ML 42 ML IV ×2 (12:59→15:01)
[2021-01-24] MEDS: VANCOMYCIN 1,000 MG/200 ML PIGGYBACK 200 MG IV (13:00)
[2021-01-24] MEDS: CELECOXIB 200 MG CAPSULE PO (13:00)
[2021-01-24] MEDS: PREGABALIN 75 MG CAPSULE PO (13:01)
[2021-01-24] MEDS: ACETAMINOPHEN 325 MG TABLET 975 MG PO (13:03)
--- NOTE | 2021-01-24 13:22 | PM.PREOP ---
Pre-operative Note COVID-19 COVID-19 status: Negative Interval Note History & Physical reviewed/Exam performed by Physician: Yes Changes to H&P: No
--- NOTE | 2021-01-24 13:22 | PM.OP.1 ---
Operative Date/Time/Diagnoses Date of procedure: 01/24/21 Time of procedure: 14:20 Pre-op diagnosis: Right hip osteoarthritis severe Post-op diagnosis: same Procedure & Clinicians Procedure: Right total hip arthroplasty posterior approach Same procedure as scheduled: Yes Indications: The patient has had progressively worsening right hip pain with radiographic changes consistent with arthritis. Non-operative management has failed and the patient has requested total hip replacement. The risks, benefits and alternatives to surgery were discussed with the patient prior to proceeding. Risks discussed included, but were not limited to, failure to relieve pain, leg length discrepancy, dislocation, stiffness, infection, nerve damage, deep venous thrombosis, pulmonary embolism, stroke, coma, heart attack, permanent paralysis and , as well as the potential need for eventual revision of the prosthetic. Surgeon: Sintia Rhoades Bilingual Executive Assistant: Kristina Montesinos Anesthesia Type: General and Spinal Operative Notes Findings: Severe right hip osteoarthritis, soft bone adequate stability Closure Type: primary Specimen(s): none sent Prosthetic devices, grafts, tissues, transplants, or devices: Rhoades [employer]hew standard offset anthology size 7 standard offset, 52 R3, 36 by +0, one 6.5mm screw Applied: drain(s) Estimated Blood Loss (mL): 250 Blood products transfused: none Procedure in detail: The patient was seen in the pre-operative area, where the patient identified the right hip as the operative site and this was marked with my initials. The patient received pre-operative antibiotics and was taken to the operating room and placed on the operative table in the left lateral decubitus position after satisfactory anesthesia. A building construction professor out was performed. The right leg was prepared from the ankle to the iliac crest with ChloroPrep in the usual fashion and draped through sterile drapes. The hip was approached through an approximately 20 cm incision centered over the greater trochanter and curving gently posteriorly as it went proximally. This was carried sharply to the fascia jane, which was divided and retracted with a self retaining retractor. The trochanteric bursa was excised with care being taken to avoid the sciatic nerve, which was identified and protected throughout the case. The short external rotators were incised and the capsulomuscular flap was raised and tagged for later repair. The hip was dislocated, and a femoral neck osteotomy performed approximately 15 mm above the lesser trochanter. Retractors were placed around the femur. The canal was opened with a box cutting osteotome, followed by a T handled reamer and a lateralizing reamer. The chili pepper broach was then used, followed by sequential broaching until there was good stability of the broach in the femur. Retractors were placed to expose the acetabulum. The labrum and central soft tissues were removed. Reaming was performed initially going up in 2 mm increments, then 1 mm increments until good bite was obtained with an odd sized reamer. The cup 1 mm larger than the last reamer was then inserted using the appropriate anteversion guides. It was further stabilized with a single screw. A trial neutral liner was placed. The broach was placed in the canal. A trial head and neck were then placed and the hip relocated and checked for leg length and stability. An intraoperative film confirmed the component position and no evidence of fracture. The patient was stable in the position of sleep, of squatting, and could be put through a range of motion with 45 degrees internal rotation without dislocation. At 90 degrees flexion, internal rotation to 70 was possible before dislocation. This was felt to be satisfactory and the appropriate components were opened, and the trials were removed. The acetabular liner was impacted into position. The final stem was then impacted into the prepared femoral canal. A brief Betadine soak was performed while trialing with head options. The hip was meticulously irrigated with normal saline. Finally the femoral head was impacted onto the stem. The acetabulum was cleared of all material and the hip relocated one final time. The capsulomuscular flap was then repaired to the greater trochanter though an awl hole using the tag sutures. The short external rotators were repaired with a nonabsorbable suture. A deep drain was placed and brought out anteriorly. The fascia jane was closed with Vicryl. The subcutaneous layer was closed with barbed sutures and SteriStrips. An Aquacel Ag dressing was applied and the patient was taken to recovery having tolerated the procedure well. Complications: none Post-operative Condition: stable Disposition: Acute Care Plan for aftercare: The patient will be maintained on a standard total hip replacement protocol with weight bearing as tolerated and posterior hip precautions. The patient will receive Aspirin and sequential compression devices for DVT prophylaxis. The patient will be discharged home when safe for the home environment.
--- NOTE | 2021-01-24 14:00 | DI.RAD.S_ITS ---
PROCEDURE: XR PELVIS 1-2V INDICATIONS: INNER OP TECHNIQUE: Intra-operative view of the pelvis and hip acquired. COMPARISON: None. FINDINGS: Bones: Prosthesis sizer for the right hip is in place. The hip joint is grossly congruent. Soft tissues: Overlying expected soft tissue gas and other surgical instruments are present. IMPRESSION: Expected intraoperative appearance of hip arthroplasty sizer. Dictated by: Rabia Darden M.D. on 01/24/2021 at 18:28 Approved by: Rabia Darden M.D. on 01/24/2021 at 18:31
[2021-01-24] MEDS: CEFAZOLIN 1 GM VIAL 2 GM IV ×2 (14:15→21:51)
[2021-01-24] MEDS: TRANEXAMIC ACID 1,000 MG VIAL 2000 MG INJ (14:20)
--- NOTE | 2021-01-24 14:49 | SUR.OPER ---
Lateral on padded OR bed. Gel axillary roll. Arms secured on padded armboard with pillow supporting top arm. Padded hip positioner braces x4 - anterior and posterior chest and pelvis. Additional gel pad used anterior pelvis. Gel pad under bottom leg from knee to foot and secured with tape over sheet.
[2021-01-24] MEDS: EPINEPHrine 1 MG/ML SUBCUT (14:54)
[2021-01-24] MEDS: BUPIVACAINE 0.25% (PF) VIAL 30 ML INJ (14:56)
[2021-01-24] MEDS: BUPIVACAINE LIPOSOME 266 MG/20 ML VIAL INJ (14:56)
[2021-01-24] MEDS: LACTATED RINGERS 1,000 ML 125 ML IV (18:11)
[2021-01-24] MEDS: IBUPROFEN 400 MG TABLET PO ×2 (18:37→20:54)
[2021-01-24] MEDS: ACETAMINOPHEN 325 MG TABLET 650 MG PO (20:54)
[2021-01-24] MEDS: DOCUSATE 100 MG CAPSULE PO (20:54)
[2021-01-24] MEDS: ASPIRIN EC 81 MG TABLET PO (20:57)
[2021-01-25] VITALS (10 sets, daily range): BP systolic 94–143; BP diastolic 51–65; PULSE 60–87; RESP 16–18; TEMP 35.6–36.6; O2SAT 96–100
[2021-01-25] MEDS: LACTATED RINGERS 500 ML 1000 ML IV (01:00)
[2021-01-25] MEDS: IBUPROFEN 400 MG TABLET PO ×6 (01:32→21:02)
[2021-01-25] MEDS: LACTATED RINGERS 1,000 ML 125 ML IV (01:32)
[2021-01-25] MEDS: OXYCODONE IR 5 MG TABLET PO ×3 (04:19→13:15)
--- NOTE | 2021-01-25 05:13 | PC.NURSE ---
HYPOTENSIVE EVENT At approx 23:42, CHIEF ENGINEER RESEARCHJosephine RICHTER reported abnormally low BP to this RN, BP 71/34 R arm, HR 48, SPO2 96% CPAP RA, and Temp 97.0 ?F. This RN entered room to find patient pale, skin cool to touch, diaphoretic, lethargic, and complaining of feeling hot and dizzy. Pt alert and oriented x4 and able to answer questions. Dressing inspected, hemovac compressed with minimal drainage inside, WINTER dressing CDI and working appropriately. [At time of incident, this RN had not obtained any report from offgoing shift.] At 23:45, BP taken again on other (L) arm, BP 64/30, HR 48- placed in trendelenburg position, removed CPAP and placed on 6L O2 nasal cannula, IVF changed from ordered LR 125 mL/hr to bolus rate 999 mL/hr for the rest of the bag (approx 300 mL), and rapid response called. 23:50 BP 65/41 HR 43. SPO2 claritza to 96% on 6L NC. Patient increasingly lethargic but still able to respond. EKG ordered and obtained by RT. orthopedically impaired teacher physician JAVIER contacted, received order for 500 mL bolus LR. 23:55 BP 86/48 HR 59 SPO2 100% on 6L, titrated down to 4L. 00:00 BP 102/56 HR 61 SPO2 100% on 4L, titrated down to 2L. Patient taken out of trendelenburg and allowed to lay flat. 00:05 BP 94/51 HR 61 SPO2 100% on 2L. Patient in no apparent respiratory or cardiac distress, asymptomatic, AOx4, no signs of unusual bleeding or drainage, color returned to skin, able to verbalize needs, denies presence of prior complaints. 00:23 BP 99/55 HR 65 SPO2 100% on 2L. Taken off O2 and placed back on CPAP RA. 01:25 BP 122/65 HR 72 SPO2 98% on CPAP RA. Patient given scheduled ibuprofen and returned to sleep, kept on continuous pulse ox for monitoring purposes. No further incidents have occurred up to the time of writing this note.
[2021-01-25] MEDS: CEFAZOLIN 1 GM VIAL 2 GM IV (05:31)
[2021-01-25 06:20] LABS: Hematocrit 31.3 % (36-46); Hemoglobin 10.6 g/dL (12.0-16.0)
[2021-01-25] MEDS: ACETAMINOPHEN 325 MG TABLET 650 MG PO ×3 (08:50→21:01)
[2021-01-25] MEDS: CHOLECALCIFEROL (VITAMIN D3) 1,000 UNIT TABLET 4000 UNIT PO (08:50)
[2021-01-25] MEDS: lisinopriL 20 MG TABLET PO (08:50)
[2021-01-25] MEDS: METFORMIN HCL 500 MG TABLET PO (08:50)
[2021-01-25] MEDS: ASPIRIN EC 81 MG TABLET PO ×2 (08:51→21:02)
[2021-01-25] MEDS: DOCUSATE 100 MG CAPSULE PO ×2 (09:53→21:02)
[2021-01-25] MEDS: SODIUM CHLORIDE 0.9% FLUSH 10 ML IV ×2 (09:53→21:14)
--- NOTE | 2021-01-25 10:44 | PM.PNPO.1 ---
Subjective Subjective Date Patient Seen: 01/25/21 Time Patient Seen: 10:44 Interval history: Patient states she is doing well overall and is in mild discomfort at rest. At this time patient denies fever, chills, nausea, chest pain, shortness of breath, or urinary retention. Patient reports a brief episode of dizziness, diaphoresis, and nausea last night. She denies similar episodes since that time. She also reports low blood pressure during that episode. Exam Vital Signs (past 8 hours): - 01/25/21 04:30 01/25/21 08:50 01/25/21 09:30 Temperature 97.6 F 96.3 F L Pulse Rate 60 66 85 Respiratory Rate 16 16 Blood Pressure 114/54 L 123/60 143/63 H Pulse Oximetry 99 98 Oxygen Delivery Method Room Air Oxygen Flow Rate 0 Narrative Exam Narrative: 80-year-old female postop day 1 status post right posterior total hip arthroplasty. Patient is resting comfortably in bed, is in no acute distress, and is alert and oriented x3. Skin is warm and dry, and the skin surrounding the incision site is free of erythema, warmth, induration, or discharge. Dressing over the incision site is clean, dry, and intact. Wound drain is draining scant amount of red blood. Good sensation appreciated throughout the bilateral lower extremities to light touch. Ankle dorsiflexion, plantar flexion, eversion, inversion performed bilaterally without difficulty or discomfort. Tenderness to palpation appreciated over the proximal anterior right hip. Calves are soft and nontender, negative Homans sign. DP pulses palpated bilaterally and are even. No signs of DVT appreciated. Const General: cooperative, healthy appearing and comfortable Resp Effort & Inspection: normal respiratory effort and able to speak in complete sentences Skin General: no rashes or lesions noted Objective Labs Result Diagrams: 01/25/21 05:54 Labs: Laboratory Results - last 24 hr 01/25/21 05:54 Hgb 10.6 L Hct 31.3 L PFSH Medical History Ankle fracture (~2014) Anxiety Bronchitis Bulging disc (~1979) Cataracts, bilateral Colon polyps Depression (~2001) Diabetes Diverticulosis Excessive daytime sleepiness GI bleed (11/2019) Gout (~2013) HTN (hypertension) Hypothyroidism Lumbar spinal stenosis Obesity (BMI 30-39.9) Obstructive sleep apnea (~12/2018) Positive PPD (~1978) Skin cancer Snoring Type 2 diabetes mellitus Surgical History Anesthesia H/O colonoscopy with polypectomy History of ear surgery (~2015) History of hysterectomy (~1984) Hx of bilateral cataract extraction Hx of hemorrhoidectomy (~1980) Family History Father Fractured hip Sister Cancer Grandfather Sepsis Social History marital status: number of children: 1 household members: none lives independently: Yes housing: house education level: college occupational status: other Smoking Status: Former smoker alcohol intake: never substance use type: does not use Assessment & Plan Post-op Postoperative Procedures: Procedures Operation Date: 01/24/21 14:15 Actual Procedure Side Surgeon p Total Hip Arthroplasty Right Sintia Rhoades MD Postoperative day: 1 Postoperative status: doing well Postoperative plan: ambulate Postoperative plan narrative: Patient is to work on ambulation with the assistance of a front wheeled walker with physical therapy. Current pain management regimen is to be continued as it has adequately the patient's pain level. Aspirin 81 mg twice daily is to be continued for DVT prophylaxis along with the assistance of sequential compression devices. Pending successful work with physical therapy plan for discharge likely home either today or tomorrow. Quality VTE Deep Vein Thrombosis/Pulmonary Embolism Present on Admission: No
--- NOTE | 2021-01-25 11:05 | PT.IIE ---
Current Diagnoses Unilateral primary osteoarthritis, right hip (01/25/21) Surgery Performed Operation Date: 01/24/21 14:15 Actual Procedures p Total Hip Arthroplasty(Right) - Sintia Rhoades MD Surgical History (Last Reviewed 01/25/21 @ 10:46 by Barrera Kelley PA-C) Anesthesia History of hysterectomy (~1984) Medical History (Last Reviewed 01/25/21 @ 10:46 by Barrera Kelley PA-C) Ankle fracture (~2014) Anxiety Bronchitis Bulging disc (~1979) Cataracts, bilateral Colon polyps Depression (~2001) Diabetes Diverticulosis Excessive daytime sleepiness GI bleed (11/2019) Gout (~2013) HTN (hypertension) Hypothyroidism Lumbar spinal stenosis Obesity (BMI 30-39.9) Obstructive sleep apnea (~12/2018) Positive PPD (~1978) Skin cancer Snoring Type 2 diabetes mellitus Physical Therapy Inpatient Evaluation/Re-Eval M1 PT/OT-IP Prior Functional Status Start: 01/25/21 13:13 Freq: NEEDED Status: Active Protocol: Document 01/25/21 11:05 AB (Rec: 01/25/21 13:26 AB [email or web address]) Medical Review Prior Functional Status Medical History Reviewed Yes Communication able to make needs known Mobility and Gait pt stated that she is independent with all mobilities and ambualtion without AD Social History Household Members none Living Arrangements House Number of Floors (Floors) One Floor Number of Stairs To Enter/Railing? 1 step to enter Home Environment Standard Height Toilet,Tub/ Shower Home Equipment Front Wheel Walker,Bedside Commode,Hand Held Shower,Leg Production Bow Maker,It Systems Manager,Lift Recliner, Grab Bars In Shower Additional Social History Comment pt's will stay with pt overnight and then a friend will stay with her for the next 2 nights and another friend might be able to stay with her afterwards if needed pt stated that she can sleep on her lift chair for now M2 PT-IP Current Condition Start: 01/25/21 13:13 Freq: NEEDED Status: Active Protocol: Document 01/25/21 11:05 AB (Rec: 01/25/21 13:26 AB [email or web address]) Physical Therapy Current Condition Current Condition Evaluation Date 01/25/21 Treatment Diagnosis s/p r RUBENS posterior approach; difficulty in walking Onset Date 01/24/21 Precautions Posterior Hip Precautions No Hip Flexion > 90 degrees,No Hip Internal Rotation,No Hip Adduction Weight Bearing Status Weight Bearing Status Weight Bear as Tolerated Allowed Weight Bearing Amount (enter % RLE WBAT or #) (%) M3 PT-IP Subjective Start: 01/25/21 13:13 Freq: NEEDED Status: Active Protocol: Document 01/25/21 11:05 AB (Rec: 01/25/21 13:26 [email or web address]) Subjective Physical Therapy Visit Type Type Initial Evaluation Visit Start Time 11:05 Visit Stop Time 12:06 Total Visit Minutes 61 Number of VELVET WEAVER Visits 0 Physical Therapy Visit Comments Patient Comments pt agreed to do PT; daughter in room with pt Therapy Pain Assessment Pain When Pain Assessed At Rest Pain Present Pain Present Pain Reported Location right hip Intensity 3 Scale Used Numeric (0 - 10) Pain Management Techniques Modification of Treatment,Re- positioning,Timing of Activity with Medications M4 PT-IP Mobility and Gait Start: 01/25/21 13:13 Freq: NEEDED Status: Active Protocol: Document 01/25/21 11:05 AB (Rec: 01/25/21 13:26 [email or web address]) PT-Bed Mobility Assessment Supine to Sit Supine to Sit Maximum Assistance PT-Transfer Assessment Sit to and From Stand Sit to and from Stand Moderate Assistance,1 Person Assistance,Use of Upper Extremities Equipment Transfer Assistive Device Gait Belt,Front Wheeled Walker Orthotic/Prosthetic Devices or Brace: No Transfers Transfer Destination Toilet Transfer Technique ambulated using FWW Transfer Ability Level of Assist Moderate Assistance,1 Person Assistance,Use of Upper Extremities Comments Mobility Comments educated pt and pt's daughter regarding posterior hip precautions. pt requires cues to recall. pt completed supine to sit x 2 attempts max A x 1 and max cues. pt was able to sit on EOB CGA to min A with increase posterior trunk lean. completed sit to stand mod A and cues for hip precautions. pt ambulated using FWW to the toilet ~ 12 ft mod A and cues. presents with antalgic gait and cues for safety. pt requiring mod A for sit to stand from the toilet using grab bar. min A to maintain standing balance while completing hygiene care. ambulated from the toilet to the sink using FWW min to mod A and cues. was able to stand by the sink CGA and cues. ambulated to the chair using FWW min to mod A and cues. positioned pt on chair. call light and table placed wtihin reach. caregiver training set up for 2pm today with pt and pt's daughter. informed pt and daughter rgarding equipement needs: shower chair and skid/tennis balls on FWW. pt agreed. Gait Assessment Gait Gait Assistance Required: Moderate Assistance Distance (Feet) 12 Able to Maintain Weight Bearing Status Yes During Gait Assistive Devices Assistive Device Gait Belt,Front Wheeled Walker Orthotic/Prosthetic Devices or Brace: No Gait Deviations General Gait Pattern Antalgic,Decreased Stride Length,Decreased Feet Clearance,Step-to Gait Factors Limiting Gait Function Factors Limiting Gait Function Decreased Activity Tolerance, Decreased Strength,Difficulty Following Directions,Limited Range of Motion,Pain,Poor Balance,Poor Safety Awareness Comments Gait Comments pls refer to mobility section for details PT-Balance Assessment Sitting Balance and Reactions Static Sitting Balance Ability Good Dynamic Sitting Balance Ability Good Standing Balance and Reactions Static Standing Balance Ability Fair Dynamic Standing Balance Ability Fair Device Used FWW M5 PT-IP Objective Assessments Start: 01/25/21 13:13 Freq: NEEDED Status: Active Protocol: Document 01/25/21 11:05 AB (Rec: 01/25/21 [facility]:26 [email or web address] Orientation Orientation/Cognition Level of Alertness Alert Orientation Name,Situation Safety Awareness Decreased Safety Awareness Memory Description Short Term Impaired Gross Range of Motion Lower Extremity ROM Assessment Within Functional Limits Strength Lower Extremity Strength Assessment Right Impaired Hip 3-/5 Knee 3+/5 Coordination Assessment Gross Coordination Gross Coordination WNL Sensation Assessment Sensation Gross Sensation WNL Muscle Tone Muscle Tone WNL Yes M6 PT-IP Treatment Start: 01/25/21 13:13 Freq: NEEDED Status: Active Protocol: Document 01/25/21 11:05 AB (Rec: 01/25/21 13:26 [facility] Physical Therapy Treatment Exercises Exercises Heel Slides Education Education Provided Precautions,Weight Bearing Status,Post-Op Packet,Safety M7 PT-IP Assessment and Plan Start: 01/25/21 13:13 Freq: NEEDED Status: Active Protocol: Document 01/25/21 11:05 AB (Rec: 01/25/21 13:26 [facility] PT Summary Assessment and Plan Potential Rehabilitation Potential Good Status of Condition at Evaluation Stable Summary Impairments Pain,ROM,Strength,Balance, Coordination,Sensation,Tone, Cognition,Bed Mobility, Transfers,Gait,Activity Tolerance Assessment Summary pt requiring min to mod A with mobility using FWW. caregiver training set up for 2pm this afternoon. will continue to assess progress for safe d/c plan. Goals Bed Mobility Goal Independent Transfer Goal Independent,Front Wheeled Walker Gait Goal Independent,Front Wheel Walker Gait Distance 150 Other Goals up/down 1 step using FWW SBA Days to Meet Goals 5 Frequency of Treatment Frequency Of Treatment Twice a Day Treatment Plan Physical Therapy Treatment Plan Bed Mobility Training,Transfer Training,Gait Training, Therapeutic Exercise,Balance Retraining,Post Op Education, Discharge Planning,Hot or Cold Pack,Neuromuscular Re-ed, Coordination Retraining,Manual Therapy Precautions Posterior Hip Precautions No Hip Flexion > 90 degrees,No Hip Internal Rotation,No Hip Adduction Other Precautions RLE WBAT Recommendations To Nursing Amount of Assist Needed 1 Person Assist Discharge Recommendations PT Discharge Recommendations Home with Assistance, Outpatient PT Transportation Needs at Discharge Private Vehicle
--- NOTE | 2021-01-25 14:20 | PT.IPTN ---
Current Diagnoses Unilateral primary osteoarthritis, right hip (01/25/21) Surgery Performed Operation Date: 01/24/21 14:15 Actual Procedures p Total Hip Arthroplasty(Right) - Sintia Rhoades MD Physical Therapy Treatment Note M2 PT-IP Current Condition Start: 01/25/21 13:13 Freq: NEEDED Status: Active Protocol: Document 01/25/21 11:05 AB (Rec: 01/25/21 13:26 AB [id number]) Physical Therapy Current Condition Current Condition Evaluation Date 01/25/21 Treatment Diagnosis s/p r RUBENS posterior approach; difficulty in walking Onset Date 01/24/21 Precautions Posterior Hip Precautions No Hip Flexion > 90 degrees,No Hip Internal Rotation,No Hip Adduction Weight Bearing Status Weight Bearing Status Weight Bear as Tolerated Allowed Weight Bearing Amount (enter % RLE WBAT or #) (%) M3 PT-IP Subjective Start: 01/25/21 13:13 Freq: NEEDED Status: Active Protocol: Document 01/25/21 14:20 AB (Rec: 01/25/21 16:51 AB [email or web address]) Subjective Physical Therapy Visit Type Type Treatment Note Visit Start Time 14:20 Visit Stop Time 15:26 Total Visit Minutes 66 Number of OPERATION RESEARCH ANALYST Visits 0 Physical Therapy Visit Comments Patient Comments agreeable to do PT Therapy Pain Assessment Pain When Pain Assessed At Rest Location right hip Intensity 2 Scale Used Numeric (0 - 10) Pain Management Techniques Distraction,Modification of Treatment,Re-positioning, Timing of Activity with Medications M4 PT-IP Mobility and Gait Start: 01/25/21 13:13 Freq: NEEDED Status: Active Protocol: Document 01/25/21 14:20 AB (Rec: 01/25/21 16:51 AB [email or web address]) PT-Bed Mobility Assessment Supine to Sit Supine to Sit Maximum Assistance,1 Person Assistance Sit to Supine Sit to Supine Standby Assistance PT-Transfer Assessment Sit to and From Stand Sit to and from Stand Contact Guard Assistance,1 Person Assistance,Use of Upper Extremities Equipment Transfer Assistive Device Gait Belt,Front Wheeled Walker Orthotic/Prosthetic Devices or Brace: No Transfers Transfer Destination Bed,Chair,Toilet Transfer Technique ambulated Transfer Ability Level of Assist Contact Guard Assistance,1 Person Assistance,Use of Upper Extremities Comments Mobility Comments caregiver training conducted. daughter educated on how to use safety belt and how to assist pt. daughter was able to put safety belt on. assisted pt with sit to stand and ambulation to the toilet using FWW CGA. daughter was able to assist pt with ambulation towards the sink using fWW CGA and pt completed handwashing CGA. pt sat back on chair. educated on brief management considering safety and hip precautions. pt completed step transfer to bed with daughter assisting. bed mobility training. educated pt on techniques and how to complete supine <>sit. pt required max a and max cues. completed x 3 sets. daughter was ablet o assist pt . informed pt that for safety, she might want to consider using lift chair to sleep on for now due to difficulty with bed mobility and needing max A. Pt agreed. pt stated that she is tired and refused to do stair climbing training but agreed to ambulate in room and completed ~ 35 ft using FWW with daughter assisting. pt then sat on chair. positioned on chair. call light and table placed within reach. caregiver training set up for tomorrow 01/26 at 9 am. Gait Assessment Gait Gait Assistance Required: Contact Guard Assist Distance (Feet) 35 Able to Maintain Weight Bearing Status Yes During Gait Assistive Devices Assistive Device Gait Belt,Front Wheeled Walker Orthotic/Prosthetic Devices or Brace: No Gait Deviations General Gait Pattern Antalgic,Decreased Stride Length,Decreased Feet Clearance,Step-to Gait Factors Limiting Gait Function Factors Limiting Gait Function Decreased Activity Tolerance, Decreased Strength,Limited Range of Motion,Pain,Poor Balance,Poor Safety Awareness Comments Gait Comments pls refer to mobility section for details M5 PT-IP Objective Assessments Start: 01/25/21 13:13 Freq: NEEDED Status: Active Protocol: Document 01/25/21 11:05 AB (Rec: 01/25/21 13:26 AB [email or web address]) Orientation Orientation/Cognition Level of Alertness Alert Orientation Name,Situation Safety Awareness Decreased Safety Awareness Memory Description Short Term Impaired Gross Range of Motion Lower Extremity ROM Assessment Within Functional Limits Strength Lower Extremity Strength Assessment Right Impaired Hip 3-/5 Knee 3+/5 Coordination Assessment Gross Coordination Gross Coordination WNL Sensation Assessment Sensation Gross Sensation WNL Muscle Tone Muscle Tone WNL Yes M6 PT-IP Treatment Start: 01/25/21 13:13 Freq: NEEDED Status: Active Protocol: Document 01/25/21 14:20 AB (Rec: 01/25/21 16:51 AB [email or web address]) Physical Therapy Treatment Education Education Provided Precautions,Weight Bearing Status,Safety M7 PT-IP Assessment and Plan Start: 01/25/21 13:13 Freq: NEEDED Status: Active Protocol: Document 01/25/21 14:20 AB (Rec: 01/25/21 16:51 AB [id number]) PT Summary Assessment and Plan Potential Rehabilitation Potential Good Summary Impairments Pain,ROM,Strength,Balance, Coordination,Sensation,Tone, Cognition,Bed Mobility, Transfers,Gait,Activity Tolerance Progress Towards Goals Slow Progress due to Activity Tolerance Assessment Summary caregiver training conducted but further training is needed . set up training again 01/26 at 9 am. will continue to assess progress. Daughter stated that she can inform and train the other caregivers that will assist pt at home. pt will benefit from HHPT at this time. Goals Bed Mobility Goal Independent Transfer Goal Independent,Front Wheeled Walker Gait Goal Independent,Front Wheel Walker Gait Distance 150 Other Goals up/down 1 step using FWW SBA Days to Meet Goals 5 Frequency of Treatment Frequency Of Treatment Twice a Day Treatment Plan Physical Therapy Treatment Plan Bed Mobility Training,Transfer Training,Gait Training, Therapeutic Exercise,Balance Retraining,Post Op Education, Discharge Planning,Hot or Cold Pack,Neuromuscular Re-ed, Coordination Retraining,Manual Therapy Precautions Posterior Hip Precautions No Hip Flexion > 90 degrees,No Hip Internal Rotation,No Hip Adduction Other Precautions RLE WBAT Recommendations To Nursing Amount of Assist Needed 1 Person Assist Discharge Recommendations PT Discharge Recommendations Home with Assistance,Home Health Transportation Needs at Discharge Private Vehicle
--- NOTE | 2021-01-25 17:38 | CM.DANOTE ---
Discharge Planning/Care Management DCP: assessment: case received and discussed in Team Rounds. PT was to see pt for first time today. Pt's pre-op plan is home with family support/see below Pt is a 80 year old female who admitted 01/24 for a scheduled R RUBENS. Surgeon: Dr. Rhoades PCP: Niesha Kennedy No d/c was anticipated for today and was unable to check in with pt. DCP team to follow up tomorrow. PT notes show pt on track for her home plan. Admissions status: SDC to OBS on 01/25. Payer: Medicare and [employer] Advanced directive, confirm from FAMILY Start: 01/24/21 18:09 Freq: Q24H Status: Active Protocol: Document 01/24/21 18:10 AGW (Rec: 01/24/21 18:10 AGW [id number]) Advance Directive, confirm on record Time 18:10 Person contacted patient Copy received No Pre-Anesthesia Assessment Start: 01/22/21 08:26 Freq: Status: Active Protocol: Document 01/22/21 08:26 CAB (Rec: 01/22/21 09:52 CAB [id number]) Pre-Anesthesia Assessment Patient Information Reviewed Via Phone Assessment Assessment Completed With Patient Diagnostic Results BMP/CMP,CBC,EKG Comment Labs/EKG @ 01/15, COVID screen @ 01/23/21 Primary Care Provider Alysia Kennedy Seen Specialist in Last 12 Months Yes Specialist Seen Orthopedist Primary Language Faroese Preferred Language Faroese Agricultural Engineering Teacher Required No Height 162.56 cm Weight 95.254 kg Body Mass Index (BMI) 36.0 Hearing Ability Normal Visual Impairment No Limitations Visual Assist None Dentition Type Teeth, Natural Present,Teeth, Missing Barriers to Learning None Other Aids Yes: BiPAP Hx Anesthesia Reactions Yes: Hypotension during hemorrhoidectomy Hx Family Anesthesia Reaction Yes: father - confusion Hx Malignant Hyperthermia No Hx Blood Transfusions No Anesthesia Review Requested No Lining Closer No alcohol intake former Alcohol Intake Frequency Other: Stopped over 40 years ago Smoking Status Former smoker how long ago did patient quit smoking 1979 Substance Use Type does not use Pain Present Pain Reported Musculoskeletal Symptoms Abnormal Gait,Back Pain, Difficulty Walking,Joint Pain, Limited Range of Motion History of Falling (Recent or History of Yes ) Patient is completely paralyzed or No completely immobile Mental Status Oriented to own ability Is patient on oxygen? No Does patient have CORTES/SOB No Hx Sleep Apnea Yes CPAP/BIPAP use prescribed and used routinely Will Bring CPAP/BIPAP DOS Yes Currently Taking a Beta Alfredo No Hx Chest Pain No Hx SOB No Hx Syncope or Dizziness No Anti-Coagulant Therapy No Has a Seasonal Tax Preparer No Cardiac Testing No Hx Pacemaker/ICD No Pacemaker Rep Required? No Cardiac Clearance Received Not Applicable Diet Type At Home Regular dysphagia No Gastrointestinal Symptoms Constipation Bladder Pattern Urgency Urinary Catheter Present No Hx Urinary Self Catheterization No Diabetes Yes: Pt does not check blood sugars at home HgbA1C 6.0 Date 01/15/21 Patient No Lactating No Hx Drug Resistant Organism No Presence of External or Internal Medical Yes: titanium in right ear, Devices kd eye lens, BiPAP Have you had any close contact with No someone diagnosed with COVID-19? Marital Status Single Lives With none Prior Living Arrangements House Number of Floors (Floors) One Floor Support System Child/Children,Family Does the Patient Have Assistance After Yes Surgery Patient Discharge Plan Description Return Home Comment Pt advised overnight length of stay per surgeon Feels Safe in Current Environment Yes Been Physically Hurt or Threatened By a No Person in Current Environment Do you have thoughts of harming yourself None or others? Are you currently considering suicide? No Do you have a plan to hurt yourself or No Plan others? Do You Have Any Spiritual Beliefs That No May Affect Your HC Choices? Do You Have Any Cultural Practices That No May Affect Your HC Choices? Comment [place] Who Can We Speak to About Patient's Care Family, friends Identifying Code for Release of Patient Declines to issue Information Health Care Proxy/Next of Kin Vale (carlo) Health Care Proxy Emergency Contact Name Vale Aguilar Emergency Contact Advance Directives? No Advance Directives on File No Power of Plaster Pattern Caster Yes Power of Plaster Pattern Caster Name Vale (carlo) Power of Plaster Pattern Caster PAC Instructions Diabetes instructions,Do not shave/clip surgical site, Durable medical equipment, Medications to take/avoid, Nasal antibiotic,No ETOH/ petroleum product on skin DOS, NPO,Post-op transportation,Pre -surgical wash,Sturdy shoes/ comfortable clothes,Do not bring valuables and remove jewelry Stop Bang Assessment Do you snore loudly (louder than talking Yes or loud enough to be heard through closed doors) Do you often feel tired, fatigued or Yes sleepy during the daytime Has anyone ever observed you stop No breathing while sleeping? Do you have, or are you being treated No for, high blood pressure Is your BMI more than 35 kg/m2 Yes Age over 50 Yes Estimated neck circumference greater Yes than 40cm or 16in Gender male No Result Positive
[2021-01-25] MEDS: polyethylene glycoL 3350 17 GM POWD.PACK PO (17:41)
[2021-01-26 00:15] VITALS: BP 138/64; PULSE 69; RESP 20; TEMP 36.1; O2SAT 98
[2021-01-26] MEDS: IBUPROFEN 400 MG TABLET PO ×3 (01:51→08:24)
[2021-01-26 04:06] VITALS: BP 127/65; PULSE 75; RESP 20; TEMP 36.4; O2SAT 97
--- NOTE | 2021-01-26 07:23 | PM.DS.1 ---
History of Present Illness History of Present Illness Date Patient Seen: 01/26/21 Time Patient Seen: 07:23 Chief complaint: Right hip pain Narrative: Pain [id number]. Denies fever or chills. No nausea or vomiting. Discharge Providers Provider Date of admission: 01/25/21 12:39 Discharge Date: 01/26/21 Primary care physician: Alysia Kennedy DO Consults: 01/24/21 07:27 Consult to Anesthesiology Routine Comment: Consulting Provider: Anesthesiologist Reason for consultation: Regional block for post operative pain control 01/24/21 18:00 Consult to Discharge Planning Routine Comment: Consult to Physical Therapy Evaluate & Treat Comment: Physician Instructions: post op RUBENS protocol Consult to Respiratory Therapy Evaluate & Treat Comment: Physician Instructions: Evaluate and treat Discharge provider: Angelito Alvarez PA-C Summary Hospital Course Discharge Diagnosis: Right hip osteoarthritis, severe Hospital Course: Right total hip arthroplasty posterior approach Same procedure as scheduled: Yes Indications: The patient has had progressively worsening right hip pain with radiographic changes consistent with arthritis. Non-operative management has failed and the patient has requested total hip replacement. The risks, benefits and alternatives to surgery were discussed with the patient prior to proceeding. Risks discussed included, but were not limited to, failure to relieve pain, leg length discrepancy, dislocation, stiffness, infection, nerve damage, deep venous thrombosis, pulmonary embolism, stroke, coma, heart attack, permanent paralysis and , as well as the potential need for eventual revision of the prosthetic. Surgeon: Sintia Rhoades Blanket Washer: Kristina Montesinos Anesthesia Type: General and Spinal Operative Notes Findings: Severe right hip osteoarthritis, soft bone adequate stability Closure Type: primary Specimen(s): none sent Prosthetic devices, grafts, tissues, transplants, or devices: [employer] standard offset anthology size 7 standard offset, 52 R3, 36 by +0, one 6.5mm screw Applied: drain(s) Estimated Blood Loss (mL): 250 Blood products transfused: none Patient admitted to the hospital for the above-mentioned procedure. Patient consented to the same. Patient taken to operating room underwent right total hip arthroplasty. Patient back in her room recovering well as in stable condition. Discharge home today in stable condition. Exam Vital Signs (past 8 hours): - 01/26/21 00:15 01/26/21 04:06 Temperature 97.0 F L 97.6 F Pulse Rate 69 75 Respiratory Rate 20 20 Blood Pressure 138/64 127/65 Pulse Oximetry 98 97 Oxygen Delivery Method Room Air Oxygen Flow Rate 0 Narrative Exam Narrative: 80-year-old female sitting comfortably in bedside chair no apparent distress. Jarvis dressing is on and functioning. Motor functions intact bilateral lower extremities. Sensation grossly intact to light touch bilateral lower extremities. Both legs are warm and dry. Objective Labs Result Diagrams: 01/25/21 05:54 [facility] Medical History Ankle fracture (~2014) Anxiety Bronchitis Bulging disc (~1979) Cataracts, bilateral Colon polyps Depression (~2001) Diabetes Diverticulosis Excessive daytime sleepiness GI bleed (11/2019) Gout (~2013) HTN (hypertension) Hypothyroidism Lumbar spinal stenosis Obesity (BMI 30-39.9) Obstructive sleep apnea (~12/2018) Positive PPD (~1978) Skin cancer Snoring Type 2 diabetes mellitus Surgical History Anesthesia H/O colonoscopy with polypectomy History of ear surgery (~2015) History of hysterectomy (~1984) Hx of bilateral cataract extraction Hx of hemorrhoidectomy (~1980) Family History Father Fractured hip Sister Cancer Grandfather Sepsis Social History marital status: number of children: 1 household members: none lives independently: Yes housing: house education level: college occupational status: other Smoking Status: Former smoker alcohol intake: never substance use type: does not use Discharge Assessment & Plan Assessment and Plan Assessment: Stable status post right total hip arthroplasty, posterior approach Plan of Treatment: Discharge home today in stable condition. Discharge Plan Discharge Plan Patient Disposition: Home Discharge orders & Medications Prescriptions: New acetaminophen 325 mg Tablet 650 mg PO TID Qty: 60 RF: 0 aspirin 81 mg Tablet,Delayed Release (Dr/Ec) 81 mg PO BID Qty: 60 RF: 0 ibuprofen 400 mg Tablet 400 mg PO Q4HR Qty: 60 RF: 0 docusate sodium [DOK] 100 mg Capsule 100 mg PO BID Qty: 30 RF: 0 oxycodone 5 mg Tablet 5 mg PO Q3HR PRN (Reason: Pain, Moderate (4-6)) Qty: 30 RF: 0 Continued docusate sodium [Colace] 100 mg capsule 200 mg PO BID Qty: 120 RF: 3 metformin 500 mg tablet 500 mg PO DAILY Qty: 90 RF: 1 ramipril 5 mg capsule 5 mg PO DAILY Qty: 90 RF: 1 cholecalciferol (vitamin D3) [Vitamin D3] 50 mcg (2,000 unit) Capsule 100 mcg PO DAILY RF: 0 Discontinued aspirin [Aspirin Low Dose] 81 mg Tablet,Delayed Release (Dr/Ec) 81 mg PO DAILY RF: 0 acetaminophen 650 mg Tablet 650 - 1,300 mg PO DAILY PRN (Reason: Pain) RF: 0 Follow up/Referrals: Alysia Kennedy DO [Primary Care Provider] - Sintia Rhoades MD [Physician] - (2 weeks) Diet/Activity/Treatments Diet: Diet as Tolerated Activity: Weight-bearing as tolerated, posterior hip precautions Cold/Heat Therapy: Apply ice to hip as needed Skin/Wound/Dressing Care Report to your healthcare provider any signs of infection, such as:: chills, fever, increased pain, unusual drainage and unusual redness Dressing: Keep dressing clean and dry Visit Report/Discharge Packet Instructions: DI for Hip Replacement, DI for Prescription Opioid Use Stand Alone Forms: Surgery Discharge Discharge Data Primary Care Provider: Alysia Kennedy Attending Provider: Sintia Rhoades Quality VTE Deep Vein Thrombosis/Pulmonary Embolism Present on Admission: No
[2021-01-26 08:00] VITALS: BP 137/67; PULSE 77; RESP 18; TEMP 36.6; O2SAT 98
[2021-01-26] MEDS: METFORMIN HCL 500 MG TABLET PO (08:18)
[2021-01-26] MEDS: ACETAMINOPHEN 325 MG TABLET 650 MG PO (08:18)
[2021-01-26] MEDS: CHOLECALCIFEROL (VITAMIN D3) 1,000 UNIT TABLET 4000 UNIT PO (08:19)
[2021-01-26] MEDS: ASPIRIN EC 81 MG TABLET PO (08:19)
[2021-01-26] MEDS: DOCUSATE 100 MG CAPSULE PO (08:20)
[2021-01-26 08:22] VITALS: BP 127/65; PULSE 75
[2021-01-26] MEDS: lisinopriL 20 MG TABLET PO (08:22)
--- NOTE | 2021-01-26 09:57 | PT.IPTN ---
Current Diagnoses Unilateral primary osteoarthritis, right hip (01/25/21) Surgery Performed Operation Date: 01/24/21 14:15 Actual Procedures p Total Hip Arthroplasty(Right) - Sintia Rhoades MD Physical Therapy Treatment Note M2 PT-IP Current Condition Start: 01/25/21 13:13 Freq: NEEDED Status: Discharge Protocol: Document 01/25/21 11:05 AB (Rec: 01/25/21 13:26 AB [id number]) Physical Therapy Current Condition Current Condition Evaluation Date 01/25/21 Treatment Diagnosis s/p r RUBENS posterior approach; difficulty in walking Onset Date 01/24/21 Precautions Posterior Hip Precautions No Hip Flexion > 90 degrees,No Hip Internal Rotation,No Hip Adduction Weight Bearing Status Weight Bearing Status Weight Bear as Tolerated Allowed Weight Bearing Amount (enter % RLE WBAT or #) (%) M3 PT-IP Subjective Start: 01/25/21 13:13 Freq: NEEDED Status: Discharge Protocol: Document 01/26/21 09:10 CLB (Rec: 01/26/21 12:59 CLB [id number]) Subjective Physical Therapy Visit Type Type Treatment Note Visit Start Time 09:10 Visit Stop Time 09:57 Total Visit Minutes 47 Notes Daughter Galina present for CG training. Number of COTTON BROKER Visits 1 Physical Therapy Visit Comments Patient Comments agreeable to do PT Therapy Pain Assessment Pain When Pain Assessed At Rest Pain Present Pain Present Pain Reported Location right hip Intensity 2 Scale Used Numeric (0 - 10) M4 PT-IP Mobility and Gait Start: 01/25/21 13:13 Freq: NEEDED Status: Discharge Protocol: Document 01/26/21 09:10 CLB (Rec: 01/26/21 12:59 CLB [id number]) PT-Bed Mobility Assessment Supine to Sit Supine to Sit Minimal Assistance Sit to Supine Sit to Supine Standby Assistance Scooting Scooting to Edge of Bed Standby Assistance Scooting Up and Down in Bed Standby Assistance PT-Transfer Assessment Sit to and From Stand Sit to and from Stand Standby Assistance,Contact Guard Assistance,1 Person Assistance,Use of Upper Extremities Equipment Transfer Assistive Device Gait Belt,Front Wheeled Walker Orthotic/Prosthetic Devices or Brace: No Transfers Transfer Destination Bed,Chair,Toilet Transfer Technique ambulated Transfer Ability Level of Assist Standby Assistance,Contact Guard Assistance,1 Person Assistance,Use of Upper Extremities Comments Mobility Comments Pt's daughter assisted pt with CGA to stand from chair and assisted pt CGA to BR, Pt sat on toilet with use of wall rail SBA. Pt able to doff/farida brief and perform pericare and stand with use of wall rail SBA. Pt ambulate to sink SBA and washed hands. Pt then ambulated in juan ~100ft w/FWW /SBA with good foot clearance and stride length. Pt climed platform step with FWW and daughter providing CGA. Pt then climbed platform step again this time with SBA. Pt then ambulated back to room sitting in chair. After rest pt stood transferring to EOB and able to get to supine SBA and able to move to center in bed. Pt then required Min A of RLE from daughter and cues from COTTON BROKER for sequencing getting OOB. Pt then transferred back to chair SBA. Pt recalls 3/3 hip precautions. Pt left in chair with all needs within reach. Gait Assessment Gait Gait Assistance Required: Standby Assistance Distance (Feet) 200 Assistive Devices Assistive Device Gait Belt,Front Wheeled Walker Orthotic/Prosthetic Devices or Brace: No Gait Deviations General Gait Pattern Antalgic,Decreased Stride Length,Decreased Feet Clearance Factors Limiting Gait Function Factors Limiting Gait Function Decreased Activity Tolerance, Decreased Strength,Limited Range of Motion,Pain,Poor Balance Comments Gait Comments pls refer to mobility section for details Stair Climbing Assessment Evaluation Level of Assist On Stairs Standby Assistance,Contact Guard Assistance Devices Stair Climbing Assistive Devices Front Wheel Walker Technique/Endurance Stair Climbing Direction Ascend and Descend Stair Climbing Technique Step to Step Number of Steps Climbed 1 Stair Climbing Set # Repetitions (reps) 2 M5 PT-IP Objective Assessments Start: 01/25/21 13:13 Freq: NEEDED Status: Discharge Protocol: Document 01/25/21 11:05 AB (Rec: 01/25/21 13:26 AB [id number]) Orientation Orientation/Cognition Level of Alertness Alert Orientation Name,Situation Safety Awareness Decreased Safety Awareness Memory Description Short Term Impaired Gross Range of Motion Lower Extremity ROM Assessment Within Functional Limits Strength Lower Extremity Strength Assessment Right Impaired Hip 3-/5 Knee 3+/5 Coordination Assessment Gross Coordination Gross Coordination WNL Sensation Assessment Sensation Gross Sensation WNL Muscle Tone Muscle Tone WNL Yes M6 PT-IP Treatment Start: 01/25/21 13:13 Freq: NEEDED Status: Discharge Protocol: Document 01/26/21 09:10 CLB (Rec: 01/26/21 12:59 CLB [id number]) Physical Therapy Treatment Exercises Exercises Ankle Pumps,Gluteal Sets,Quad Sets,Heel Slides Education Education Provided Precautions,Weight Bearing Status,Safety M7 PT-IP Assessment and Plan Start: 01/25/21 13:13 Freq: NEEDED Status: Discharge Protocol: Document 01/26/21 09:10 CLB (Rec: 01/26/21 12:59 CLB [id number]) PT Summary Assessment and Plan Potential Rehabilitation Potential Good Summary Impairments Pain,ROM,Strength,Balance, Coordination,Sensation,Tone, Cognition,Bed Mobility, Transfers,Gait,Activity Tolerance Progress Towards Goals Progressing Toward Goals Assessment Summary Pt improving with all mobility is SBA for sit-stand, SBA for gait ~200ft w/FWW and pt is able to climb platform step. Pt improved with bed mobility requiring Min A of RLE but states she will sleep in her recliner. Pt's daughter is able to assist pt appropriately. Goals Bed Mobility Goal Independent Transfer Goal Independent,Front Wheeled Walker Gait Goal Independent,Front Wheel Walker Gait Distance 150 Other Goals up/down 1 step using FWW SBA Days to Meet Goals 5 Frequency of Treatment Frequency Of Treatment Twice a Day Treatment Plan Physical Therapy Treatment Plan Bed Mobility Training,Transfer Training,Gait Training, Therapeutic Exercise,Balance Retraining,Post Op Education, Discharge Planning,Hot or Cold Pack,Neuromuscular Re-ed, Coordination Retraining,Manual Therapy Precautions Posterior Hip Precautions No Hip Flexion > 90 degrees,No Hip Internal Rotation,No Hip Adduction Other Precautions RLE WBAT Recommendations To Nursing Amount of Assist Needed 1 Person Assist Discharge Recommendations PT Discharge Recommendations Home with Assistance,Home Health Transportation Needs at Discharge Private Vehicle
--- NOTE | 2021-01-26 12:50 | PC.NURSE ---
Pt A&Ox3 this a.m. pleasant. Reports pain well controlled with tylenol and ibuprofen to R hip. Pt reports relief this a.m. after having a large BM, stated feeling constipated prior. Good po intake. VSS, afebrile on RA. mild swelling to RLE. Able to ambulate well with SBA with PT, in shoes from home. Pt educated on site care and sabra dressing. She verbalizes understanding of discharge plan, instructions, incision site care, hip precautions, medications, woresening symptoms or signs of infection. RN escorted pt to private vehicle with daughter with all of her belongings including CPAP, and FWW, and prescriptions.
== END 2021-01-26 11:15 | disposition home or self-care (01) ==
LOC: OR 13:22 → AC 13:22
PROVIDERS: Admitting Provider Orthopaedic Surgery; PCP Family Medicine; Referring Provider Orthopaedic Surgery; Visit Provider Orthopaedic Surgery
PROC: 0SR90JZ Replacement of Right Hip Joint with Synthetic Substitute, Open Approach (ICD-10-PCS; CPT 27130; principal; 2021-01-24 14:15)
DX: M16.11 Unilateral primary osteoarthritis, right hip (principal); E11.9 Type 2 diabetes mellitus without complications; I10 Essential (primary) hypertension; Z79.84 Long term (current) use of oral hypoglycemic drugs; E66.01 Morbid (severe) obesity due to excess calories; G47.33 Obstructive sleep apnea (adult) (pediatric); Z68.36 Body mass index [BMI] 36.0-36.9, adult
CPT/HCPCS: 27130; 36415; 72170; 73502; 82962; 85014; 85018; 93005; 93010; 97110; 97116; 97161; 97530; C1776; G0378; C9290; J0171; J0690; J2250; J2704; J3010

== ENCOUNTER → 2021-04-12 15:56 | Outpatient (CLI) | payer MEDICARE, OTHER, SELFPAY ==
[2021-01-24 18:04] VITALS: BMI 36.0
[2021-04-12 17:45] LABS: Hemoglobin A1C% w Est Avg Glu 6.1 % (4.0-6.0)
[2021-04-12 18:10] LABS: BUN Creatinine Ratio 20.3 (6-22); Blood Urea Nitrogen 15 mg/dL (7-17); Calcium 9.9 mg/dL (8.4-10.2); Carbon Dioxide 27 mmol/L (22-32); Chloride 102 mmol/L (98-107); Estimated Glomerular Filt Rate > 60.0 mL/min (>60); Glucose 158 mg/dL (80-110); HEMOLYSIS 24 (0-50); Potassium 4.4 mmol/L (3.4-5.1); Sodium 137 mmol/L (137-145)
== END ==
PROVIDERS: PCP Family Medicine; Referring Provider Family Medicine; Visit Provider Family Medicine
DX: E11.9 Type 2 diabetes mellitus without complications (principal); E66.9 Obesity, unspecified; I10 Essential (primary) hypertension
CPT/HCPCS: 36415; 80048; 83036

== ENCOUNTER → 2021-06-06 10:51 | Outpatient (CLI) | payer MEDICARE, OTHER, SELFPAY ==
[2021-01-24 18:04] VITALS: BMI 36.0
--- NOTE | 2021-06-07 17:42 | DIAB.MNT ---
Initial Diabetes Medical Nutrition Therapy Assessment Name: Rupa Lee Date: 06/06/21 Time: 11a-12p Dx: Type II Diabetes Provider: Marcia Preferred Learning Style: watching and hands on Rupa presents today for initial visit. States she has had DM for 20 years. Has attended DM ed in the past. Denies any FH of Dm. Reports she would like to work on losing weight to help her overall health. Reports +20-25# since hip sx. Reports some SOB, which she attributes to weight gain. Feels most her weight gain has been around upper body, central adiposity. H/o diverticulitis and GI bleed. H/o constipation. States this was from taking Metamucil and not drinking enough water. Was going 3-4 days without BM. Now taking Senna q night and has BM daily. Hoping diet changes will help this. EMR wt hx of 195# September of 2020. States she is unsure why she has gained weight over the last 1.5 year. After hip sx, states she did not walk. Was much less active. States friends were bringing her food and she was eating more kcals. h/o tracking food intake, interested in resuming Diet Recall: 8a: fiber one cereal or oatmeal with milk and berries, +/- HB egg with 4 prunes 12p: thin wheat bread with turkey and 2c chips 5p: fried chx and salad grazing snacks in pm: PB, crackers, dried apricots, cookies Beverages: 7 x 12oz coffee, 32oz water Anthropometrics: Ht: 64 Wt: 230# reported Physical Activity: Pool 3 x per week for 60 min. Walk dog when weather permits. Gets 5,000 steps per day. Use to get 10,000 per day. Daughter has a treadmill she is hoping to use, but cold weather is a barrier. Self-Monitoring Blood Glucose: Not currently checking Diabetes Medications: 500 mg Metformin Pertinent Labs: hgA1c: 6.1%, glucose 158 mg/dL Past Medical History: (Last Reviewed 05/05/21 @ 16:43 by Alysia Kennedy DO) Ankle fracture (~2014) Anxiety Bronchitis Bulging disc (~1979) x2 Cataracts, bilateral Colon polyps Dr. Dong Depression (~2001) Diabetes Diverticulosis Excessive daytime sleepiness GI bleed (11/2019) Admit to overnight Gout (~2013) H/O colonoscopy with polypectomy History of ear surgery (~2015) Stapedectomy HTN (hypertension) Hx of bilateral cataract extraction Hx of hemorrhoidectomy (~1980) Hypothyroidism Lumbar spinal stenosis Obesity (BMI 30-39.9) Obstructive sleep apnea (~12/2018) BiPAP Positive PPD (~1978) Skin cancer Moh's right lower eyelid Snoring Type 2 diabetes mellitus Nutrition Rx: [id number] kcals daily Carbohydrates: Daily: 120-130 Meal:30-45g Snack: 15-30g Protein: 90-100g daily Fat: 30-40g daily *evaluate fiber recs next visit Nutrition Diagnosis: - Excessive CHO intake r/t breakfast choices and nutrition knowledge deficit aeb diet recall - Reduced physical activity r/t stage of change aeb pt report Intervention: This participant was very receptive. Provided appropriate educational handouts. Discussed the following topics: Completed intake assessment. Discussed barriers to care. Plate Method, nutrition rx, tracking food intake Recommended servings for carbohydrates at meals and snacks Heart health nutrition Brainstormed appropriate meal plan based on food preferences Role of physical activity and following provider guidelines for safety Created SMART goals for patient self-care and success. Goals: Restart tracking food intake Move prunes from breakfast to a snack Aim for 6,000 steps 4 x per week Follow-up: REJI MAYS follow-up in 3 weeks Nickie Siddiqui RDN, TABATHA Certified Diabetes Care and Ux Information Architect P: [phone] Thank you for this referral
== END ==
PROVIDERS: PCP Family Medicine; Referring Provider Family Medicine; Visit Provider Family Medicine
DX: E11.9 Type 2 diabetes mellitus without complications (principal); Z79.84 Long term (current) use of oral hypoglycemic drugs
CPT/HCPCS: 97802

== ENCOUNTER → 2021-07-09 15:12 | Outpatient (CLI) | payer MEDICARE, OTHER, SELFPAY ==
[2021-01-24 18:04] VITALS: BMI 36.0
--- NOTE | 2021-07-09 16:49 | DIAB.MNTFU ---
Follow-up Diabetes Medical Nutrition Therapy Assessment Name: Rupa Lee Date: 07/09/21 Time: 315-042 Dx: Type II Diabetes Rupa presents for follow-up regarding Dm and weight loss. States she has been successfully tracking food intake with aguila, staying within nutrition rx, and has had 10# weight loss in the last month. States she feels the weight loss is not very significant, despite this success. Has also been working on increasing physical activity. Nutrition aguila indicates: 1200-1300kcals, 85-95g PRO, 118-140g CHO, 20-35g fiber. Has d/c'd prunes. Eats apricots with cottage cheese for snack. States she had a fall, landed on her hip. States xray was unremarkable. Has had sx on the opposite hip. Sees ortho in 2 weeks. This fall has made her feel more cautious about walking right now. Has been focusing more on walking in the pool. Plans to get new hgA1c in October. Anthropometrics: Ht: 64 Wt: 220# reported Weight history: reported 230# last visit one month ago Physical Activity: Walking in pool 3 x per week. These days she often gets 9261-0024 steps per day. Continues to walk dog and has treadmill for rainy days. Self-Monitoring Blood Glucose: None Diabetes Medications: 500 mg Metformin Pertinent Labs: hgA1c: 6.1%, glucose 158 mg/dL Past Medical History: (Last Reviewed 06/26/21 @ 13:16 by Roberth Hall MD) Ankle fracture (~2014) Anxiety Bronchitis Bulging disc (~1979) x2 Cataracts, bilateral Colon polyps Dr. Dong Depression (~2001) Diabetes Diverticulosis Excessive daytime sleepiness GI bleed (11/2019) Admit to overnight Gout (~2013) H/O colonoscopy with polypectomy History of ear surgery (~2015) Stapedectomy HTN (hypertension) Hx of bilateral cataract extraction Hx of hemorrhoidectomy (~1980) Hypothyroidism Lumbar spinal stenosis Obesity (BMI 30-39.9) Obstructive sleep apnea (~12/2018) BiPAP Positive PPD (~1978) Skin cancer Moh's right lower eyelid Snoring Type 2 diabetes mellitus Nutrition Rx: [id number] kcals daily Carbohydrates: Daily: 120-130 Meal:30-45g Snack: 15-30g Protein: 90-100g daily Fat: 30-40g daily Fiber: 20-35g Nutrition Diagnosis: - Excessive CHO intake r/t breakfast choices and nutrition knowledge deficit aeb diet recall - Reduced physical activity r/t stage of change aeb pt report Intervention: This participant was very receptive. Provided appropriate educational handouts. Discussed the following topics: Progress made in Phys activity and nutrition Healthy weight loss of 1-2# per week Fiber recs and current intake Physical activity goals and safety Diet changes and motivation Created SMART goals for patient self-care and success. Goals: Restart tracking food intake- met Move prunes from breakfast to a snack- met Aim for 6,000 steps 4 x per week- 75% met Cont current goals - new Call RD/TABATHA if needing f/u or accountability- new Follow-up: REJI MAYS follow-up prn. Rupa has a number of provider visits to attend. States she would like to call my office for follow-up prn. Discussed accountability and annual insurance coverage to see an RD if needed. Encouraged her to continue current changes safely and contact me with any questions or follow-up needs. She agreed. Nickie Siddiqui, REJI, [facility] Certified Diabetes Care and Curve Saw Operator P: [phone] Thank you for this referral
== END ==
PROVIDERS: PCP Family Medicine; Referring Provider Family Medicine; Visit Provider Family Medicine
DX: E11.9 Type 2 diabetes mellitus without complications (principal); Z79.84 Long term (current) use of oral hypoglycemic drugs; Z71.3 Dietary counseling and surveillance
CPT/HCPCS: 97803

== ENCOUNTER → 2021-10-22 08:47 | Outpatient (CLI) | payer MEDICARE, OTHER, SELFPAY ==
[2021-01-24 18:04] VITALS: BMI 36.0
[2021-10-22 10:06] LABS: Hemoglobin A1C% w Est Avg Glu 6.6 % (4.0-6.0)
[2021-10-22 10:19] LABS: Alanine Aminotransferase 19 IU/L (<35); Albumin 4.3 g/dL (3.5-5.0); Albumin Globulin Ratio 1.4 (1.0-2.8); Alkaline Phosphatase 109 U/L (38-126); Aspartate Aminotransferase 25 IU/L (14-36); BUN Creatinine Ratio 16.9 (6-22); Bilirubin Total 0.5 mg/dL (0.2-1.3); Blood Urea Nitrogen 14 mg/dL (7-17); Calcium 9.5 mg/dL (8.4-10.2); Carbon Dioxide 29 mmol/L (22-32); Chloride 101 mmol/L (98-107); Estimated Glomerular Filt Rate > 60 mL/min (>60); Glucose 130 mg/dL (80-110); HEMOLYSIS 21 (0-50); Potassium 4.2 mmol/L (3.4-5.1); Sodium 137 mmol/L (137-145); Total Protein 7.3 g/dL (6.3-8.2)
== END ==
PROVIDERS: PCP Family Medicine; Referring Provider Family Medicine; Visit Provider Family Medicine
DX: E11.9 Type 2 diabetes mellitus without complications (principal)
CPT/HCPCS: 36415; 80053; 83036

== ENCOUNTER → 2021-11-05 11:08 | Outpatient (CLI) | payer MEDICARE, OTHER, SELFPAY ==
[2021-01-24 18:04] VITALS: BMI 36.0
== END ==
PROVIDERS: PCP Family Medicine; Referring Provider Family Medicine; Visit Provider Family Medicine
DX: Z12.31 Encounter for screening mammogram for malignant neoplasm of breast (principal)

== ENCOUNTER → 2021-11-12 10:13 | Outpatient (CLI) | payer MEDICARE, OTHER, SELFPAY ==
[2021-01-24 18:04] VITALS: BMI 36.0
[2021-11-12 11:16] LABS: HEMOLYSIS < 15 (0-50); Iron 81 ug/dL (37-170)
[2021-11-12 11:27] LABS: Percent Iron Saturation 28 % (15-50); Total Iron Binding Capacity 285 ug/dL (265-497); Transferrin 225 mg/dL (206-381)
[2021-11-12 11:44] LABS: TSH w/ Reflex to FT4 2.13 uIU/mL (0.47-4.68)
[2021-11-12 11:49] LABS: Ferritin 33 ng/mL (11-264)
[2021-11-12 12:04] LABS: Vitamin B12 298 pg/mL (239-931)
== END ==
PROVIDERS: PCP Family Medicine; Referring Provider Physician Assistant; Visit Provider Physician Assistant
DX: R53.83 Other fatigue (principal)
CPT/HCPCS: 36415; 82607; 82728; 83540; 83550; 84443

== ENCOUNTER → 2022-01-29 12:46 | Outpatient (CLI) | payer MEDICARE, OTHER, SELFPAY ==
[2021-01-24 18:04] VITALS: BMI 36.0
--- NOTE | 2022-02-12 14:56 | DIAB.FU ---
Follow-up Diabetes Education Assessment Name: Rupa Lee Date: 01/29/22 Time: 1-150p Dx: Type II Diabetes Rupa presents today for follow-up. Increase from 6.1% to 6.6% HgA1c in September. Unclear why the increase, but she does worry about her next lab review based on recent sickness and diet changes. Reports she got covid in November, which impacted her physical activity. Stopped swimming. Was also sick in December, states she gets bronchitis easily. States she could not eat or smell, taste changed, lost 10# unintentionally and regained. Once she recovered, reports excessive kcal intake. Restarted tracking food intake. States it is difficult to get enough protein. Does not like most cheeses, cottage cheese ok. Worries about the cholesterol in eggs. Some high fat foods in food journal, ie pizza, sausage, hendricks. has been restricting some veggie intake for kcals Great fiber intake. Per food journal aguila: Average fluids: 87oz fat 40g net carbs 96-120g pro 52g States she needs protein food ideas. GI issues with constipation and GI bleed hx. Takes 4 stool softeners per day. Started laxative. States she has discussed with provider. Anthropometrics: Ht: 64 Wt: 220# reported / same as last visit Weight history: 11/2021 provider visit 221.5# Physical Activity: none currently Self-Monitoring Blood Glucose: None Diabetes Medications: 500 mg Metformin Pertinent Labs: hgA1c: 6.6% Past Medical History: (Last Reviewed 12/26/21 @ 08:52 by Roberth Hall MD) Ankle fracture (~2014) Anxiety Bronchitis Bulging disc (~1979) x2 Cataracts, bilateral Colon polyps Dr. Dong Depression (~2001) Diabetes Diverticulosis Excessive daytime sleepiness GI bleed (11/2019) Admit to overnight Gout (~2013) HTN (hypertension) Hypothyroidism Lumbar spinal stenosis Obesity (BMI 30-39.9) Obstructive sleep apnea (~12/2018) BiPAP Positive PPD (~1978) Skin cancer Moh's right lower eyelid Snoring Type 2 diabetes mellitus Intervention: This participant was very receptive. Provided appropriate educational handouts. Discussed the following topics: Impact of illness on healthy habits and plan to restart Food tracking review Protein foods Physical activity plan and impact on blood sugars Encouraged veggie intake Saturated fat intake and impact on cholesterol and weight goals Created SMART goals for patient self-care and success. Goals: Pool 2x per week Walking 5096-9165 steps per day Increase protein intake Eat all the veggies you would like Follow-up: REJI MAYS follow-up in 4 weeks Nickie Siddiqui RDN, TABATHA Certified Diabetes Care and Digital Marketing Intern P: [phone] Thank you for this referral
== END ==
PROVIDERS: PCP Family Medicine; Referring Provider Family Medicine; Visit Provider Family Medicine
DX: E11.9 Type 2 diabetes mellitus without complications (principal); Z71.3 Dietary counseling and surveillance
CPT/HCPCS: G0108

== ENCOUNTER → 2022-02-25 15:24 | Outpatient (CLI) | payer MEDICARE, OTHER, SELFPAY ==
[2021-01-24 18:04] VITALS: BMI 36.0
--- NOTE | 2022-03-04 17:27 | DIAB.FU ---
Follow-up Diabetes Education Assessment Name: Rupa Lee Date: 02/25/22 Time: 330-4p Dx: Type II Diabetes Provider: Marcia Rupa presents for follow-up. Reports she has been trying to incorporate more proteins. Enjoying baked tofu. Has questions regarding net carbs and protein intake. Interested in pro shakes States she is losing weight, but that it feels slow-- 1# per week. Still worries about eating too many vegetables and how this will impact BG. Anthropometrics: Ht: 64 Wt: 216# reported today (-4# since last visit) Weight history: 11/2021 provider visit 221.5# Physical Activity: averaging 6000 steps per day with a goal of 7000 steps. Pool walking 3-4 x per week fo r60 min. Walks dog for 1-2 x per day for 15-20 mins 4 days per week. Self-Monitoring Blood Glucose: none Diabetes Medications: 500 mg Metformin Pertinent Labs: hgA1c: 6.6% Past Medical History: (Last Reviewed 12/26/21 @ 08:52 by Roberth Hall MD) Ankle fracture (~2014) Anxiety Bronchitis Bulging disc (~1979) x2 Cataracts, bilateral Colon polyps Dr. Dong Depression (~2001) Diabetes Diverticulosis Excessive daytime sleepiness GI bleed (11/2019) Admit to overnight Gout (~2013) HTN (hypertension) Hypothyroidism Lumbar spinal stenosis Obesity (BMI 30-39.9) Obstructive sleep apnea (~12/2018) BiPAP Positive PPD (~1978) Skin cancer Moh's right lower eyelid Snoring Type 2 diabetes mellitus Intervention: This participant was very receptive. Provided appropriate educational handouts. Discussed the following topics: Review net carb label reading Review of general nutrition recommendations and current intake Protein food sources and shakes Limited impact of non starch veggies on BG Physical activity plan and impact on blood sugars Created SMART goals for patient self-care and success. Goals: Pool 2x per week- met Walking [id number] steps per day- met Increase protein intake- met Eat all the veggies you would like- in progress Try protein shake- new Cont swim 3-4x per week- new Follow-up: REJI MAYS follow-up in 4-6 weeks Nickie Siddiqui RDN, [facility] Certified Diabetes Care and Drive In Waiter/Waitress P: [phone] Thank you for this referral
== END ==
PROVIDERS: PCP Family Medicine; Referring Provider Family Medicine; Visit Provider Family Medicine
DX: E11.9 Type 2 diabetes mellitus without complications (principal); Z79.84 Long term (current) use of oral hypoglycemic drugs; Z71.3 Dietary counseling and surveillance
CPT/HCPCS: G0108

== ENCOUNTER → 2022-04-01 12:55 | Outpatient (CLI) | payer MEDICARE, OTHER, SELFPAY ==
[2021-01-24 18:04] VITALS: BMI 36.0
--- NOTE | 2022-04-01 13:36 | DIAB.MNTFU ---
Follow-up Diabetes Medical Nutrition Therapy Assessment Name: Rupa Lee Date: 04/01/22 Time: 1-120p Dx: Type II Diabetes Rupa presents for follow-up. States she has lost an additional 6# since last visit. reports cont tracking food intake. She is working on increasing protein intake. Managing carb intake and doing well with fiber intake. Son averages: 101g CHO, 34g fiber, 65g PRO Has some concerns about loose skin r/t weight loss. Reports her goal for wt loss is to get to 190# and reevaluate. Has questions regarding a healthy weight for her and BMI. Has questions about SMBG. Eating more vegetables. Did not realize squash was a starchy veggie. Has not tried pro shake discussed last visit. Anthropometrics: Ht: 64 Wt: 210 Physical Activity: Increased swimming to more consistent 4x per week. Interested in resistance training. Self-Monitoring Blood Glucose: Found an old meter and was curious about FBG. States they were above goal at 155-160mg/dL. States she has not been asked to check her BG, which is likely r/t HgA1c. Tried HS snack and did not seem to make a difference. Diabetes Medications: 500mg Metformin HS Pertinent Labs: hgA1c: 6.6% Past Medical History: (Last Reviewed 12/26/21 @ 08:52 by Roberth Hall MD) Ankle fracture (~2014) Anxiety Bronchitis Bulging disc (~1979) x2 Cataracts, bilateral Colon polyps Dr. Dong Depression (~2001) Diabetes Diverticulosis Excessive daytime sleepiness GI bleed (11/2019) Admit to overnight Gout (~2013) HTN (hypertension) Hypothyroidism Lumbar spinal stenosis Obesity (BMI 30-39.9) Obstructive sleep apnea (~12/2018) BiPAP Positive PPD (~1978) Skin cancer Moh's right lower eyelid Snoring Type 2 diabetes mellitus Nutrition Rx: 5310-2811 kcals daily Carbohydrates: Daily: 120-130 Meal:30-45g Snack: 15-30g Protein: 90-100g daily (or 0.8-1g/kg 76-95g) Fat: 30-40g daily Fiber: 20-35g Nutrition Diagnosis: - Excessive CHO intake r/t breakfast choices and nutrition knowledge deficit aeb diet recall- improved - Reduced physical activity r/t stage of change aeb pt report - improved - Nutrition and food related knowledge deficit r/ t unclear about starchy vegetables aeb pt report- new Intervention: This participant was very receptive. Provided appropriate educational handouts. Discussed the following topics: Blood sugar review and trends. Discussed BG goals for FBG and looser guidelines maybe <150. Encouraged her to chat with provider regarding this finding. If she would like to proceed with SMBG, encouraged her to ask for a new meter for more accuracy. Macronutrient intake Wt loss goals and healthy weight loss based on overall health (labs, physical activity, vegetable intake) Resistance training handout provided Physical activity plan and progress Created SMART goals for patient self-care and success. Goals: Eat all the veggies you would like- met Try protein shake- in progress Cont swim 3-4x per week- met Try a resistance training-new Count winter squash as a carb- new Discuss FBG with PCP prn- new Follow-up: REJI MAYS follow-up prn. Rupa states she feels she is doing well now and would like to follow-up prn. She plans to see her PCP next month. Encouraged her to call with any questions, concerns, or follow-up needs. She agreed to this plan. Nickie Siddiqui RDN, [facility] Certified Diabetes Care and Despatch Clerk P: [phone] Thank you for this referral
== END ==
PROVIDERS: PCP Family Medicine; Referring Provider Family Medicine; Visit Provider Family Medicine
DX: E11.9 Type 2 diabetes mellitus without complications (principal); Z79.84 Long term (current) use of oral hypoglycemic drugs; Z71.3 Dietary counseling and surveillance
CPT/HCPCS: 97803

== ENCOUNTER → 2022-04-07 18:09 | Outpatient (CLI) | payer MEDICARE, OTHER, SELFPAY ==
[2021-01-24 18:04] VITALS: BMI 36.0
--- NOTE | 2022-04-07 18:14 | DI.RAD.S_ITS ---
PROCEDURE: XR CHEST 2V INDICATIONS: Cough TECHNIQUE: 2 views of the chest were acquired. COMPARISON: [facility], , XR CHEST 1V, 12/04/2019, 8:46. FINDINGS: Surgical changes and devices: None. Lungs and pleura: Lungs are clear. No pleural effusions or pneumothorax. Mediastinum: Mediastinal contours are normal. Heart size is normal. Bones and chest wall: No suspicious bony abnormalities. Soft tissues appear unremarkable. IMPRESSION: Normal two view chest x-ray Approved by: Sven Callejas M.D. on 04/08/2022 at 10:27
== END ==
PROVIDERS: PCP Family Medicine; Referring Provider Nurse Practitioner Family; Visit Provider Nurse Practitioner Family
DX: R05.9 Cough, unspecified (principal)
CPT/HCPCS: 0241U; 71046

== ENCOUNTER → 2022-04-07 18:54 | Outpatient (CLI) | payer MEDICARE, OTHER, SELFPAY ==
[2021-01-24 18:04] VITALS: BMI 36.0
[2022-04-07 20:01] LABS: Influenza A - CEPHEID Flu A NEGATIVE (NEGATIVE); Influenza B - CEPHEID Flu B NEGATIVE (NEGATIVE); Respiratory Syncytial Virus POSITIVE (Negative)
[2022-04-07 20:26] LABS: COVID-19 CEPHEID 4-PLEX PCR Negative (Negative)
== END ==
PROVIDERS: PCP Family Medicine; Visit Provider Nurse Practitioner Family
DX: R05.9 Cough, unspecified (principal)
CPT/HCPCS: 0241U

== ENCOUNTER → 2022-05-15 07:21 | Outpatient (CLI) | payer MEDICARE, OTHER, SELFPAY ==
[2021-01-24 18:04] VITALS: BMI 36.0
[2022-05-15 10:05] LABS: Add Manual Diff / Slide Review NO; Basophils Absolute Auto 100 /uL (0-100); Basophils Percent Auto 0.8 % (0-2); Eosinophils Absolute Auto 200 /uL (0-450); Eosinophils Percent Auto 2.3 % (2-4); Hematocrit 40.1 % (36-46); Hemoglobin 13.3 g/dL (12.0-16.0); Lymphocytes Absolute Auto 1900 /uL (1100-4500); Lymphocytes Percent Auto 26.4 % (25-40); Mean Corpuscular HGB Conc 33.1 % (30-36); Mean Corpuscular Hemoglobin 29.4 PG (26-34); Mean Corpuscular Volume 88.8 fL (80-100); Monocytes Absolute Auto 700 /uL (0-900); Monocytes Percent Auto 9.3 % (3-14); Neutrophils Absolute Auto 4500 /uL (1500-7000); Neutrophils Percent Auto 61.2 % (50-75); Platelet Count 277 X10^3/uL (150-400); Red Blood Cell Count 4.51 X10^6/uL (4.0-5.2); Red Cell Distribution Width 14.7 % (11.6-14.8); White Blood Cell Count 7.3 X10^3/uL (4.5-11.0)
[2022-05-15 10:15] LABS: Hemoglobin A1C% w Est Avg Glu 6.6 % (4.0-6.0)
[2022-05-15 11:18] LABS: Alanine Aminotransferase 21 IU/L (<35); Albumin Globulin Ratio 1.3 (1.0-2.8); Alkaline Phosphatase 110 U/L (38-126); Aspartate Aminotransferase 23 IU/L (14-36); Bilirubin Total 0.4 mg/dL (0.2-1.3); Blood Urea Nitrogen 16 mg/dL (7-17); Calcium 9.5 mg/dL (8.4-10.2); Carbon Dioxide 28 mmol/L (22-32); Chloride 103 mmol/L (98-107); Cholesterol 198 mg/dL (140-199); Glucose 124 mg/dL (80-110); HDL Cholesterol 54 mg/dL (40-60); HEMOLYSIS < 15 (0-50); LDL Cholesterol Calculated 111 mg/dL (<100); Potassium 4.2 mmol/L (3.4-5.1); Sodium 139 mmol/L (137-145); Triglycerides 167 mg/dL (35-150); Uric Acid 6.7 mg/dL (2.5-6.2)
[2022-05-15 11:19] LABS: BUN Creatinine Ratio 23.5 (6-22); Estimated Glomerular Filt Rate > 60 mL/min (>60)
[2022-05-15 11:41] LABS: Thyroid Stimulating Hormone 3.56 uIU/mL (0.47-4.68)
== END ==
PROVIDERS: PCP Family Medicine; Referring Provider Family Medicine; Visit Provider Family Medicine
DX: I10 Essential (primary) hypertension (principal); E11.9 Type 2 diabetes mellitus without complications; M10.9 Gout, unspecified
CPT/HCPCS: 36415; 80053; 80061; 83036; 84443; 84550; 85025

== ENCOUNTER → 2022-10-02 11:44 | Outpatient (CLI) | payer MEDICARE, OTHER, SELFPAY ==
[2021-01-24 18:04] VITALS: BMI 36.0
[2022-10-02 12:20] LABS: Appearance Urine UA CLEAR; Bilirubin Urine UA NEGATIVE (NEGATIVE); Color Urine UA YELLOW; Glucose Urine UA NEGATIVE (Negative); Ketones Urine UA NEGATIVE (NEGATIVE); Leukocyte Esterase Urine UA TRACE (NEGATIVE); Nitrite Urine UA NEGATIVE (Negative); Occult Blood Urine UA NEGATIVE (Negative); Protein Urine UA NEGATIVE (Negative)
[2022-10-02 12:32] LABS: Bacteria Urine Occasional (0-1); Culture Indicated Urine Specimen Cultured; RBC Urine None Seen (0-5/HPF); Squamous Epithelial Cell Urine 5-10 /HPF (0-5/HPF); WBC Urine 5-10/HPF (0-5/HPF)
[2022-10-02 12:40] LABS: BUN Creatinine Ratio 21.3 (6-22); Blood Urea Nitrogen 16 mg/dL (7-17); Calcium 9.6 mg/dL (8.4-10.2); Carbon Dioxide 26 mmol/L (22-32); Chloride 103 mmol/L (98-107); Estimated Glomerular Filt Rate > 60 mL/min (>60); Glucose 119 mg/dL (80-110); HEMOLYSIS < 15 (0-50); Potassium 4.3 mmol/L (3.4-5.1); Sodium 136 mmol/L (137-145)
[2022-10-03 05:14] LABS: Labcorp Hemoglobin (Hb) A1c 6.9 % (4.8-5.6)
== END ==
PROVIDERS: PCP Family Medicine; Referring Provider Family Medicine; Visit Provider Family Medicine
DX: E11.9 Type 2 diabetes mellitus without complications (principal); R10.9 Unspecified abdominal pain; R35.0 Frequency of micturition
CPT/HCPCS: 80048; 81001; 83036; 87086

== ENCOUNTER 2022-10-03 22:24 | Emergency (ER) | payer MEDICARE, OTHER, SELFPAY ==
[2021-01-24 18:04] VITALS: BMI 36.0
[2022-10-03 22:36] VITALS: BP 201/84; PULSE 85; RESP 18; TEMP 36.2; O2SAT 98
[2022-10-04] VITALS (13 sets, daily range): BP systolic 155–189; BP diastolic 74–86; PULSE 81–87; RESP 14–28; O2SAT 92–97
[2022-10-04 00:26] LABS: Add Manual Diff / Slide Review NO; Basophils Absolute Auto 100 /uL (0-100); Basophils Percent Auto 0.5 % (0-2); Eosinophils Absolute Auto 100 /uL (0-450); Eosinophils Percent Auto 0.6 % (2-4); Hematocrit 40.7 % (36-46); Hemoglobin 13.7 g/dL (12.0-16.0); Lymphocytes Absolute Auto 1800 /uL (1100-4500); Mean Corpuscular HGB Conc 33.7 % (30-36); Mean Corpuscular Hemoglobin 29.6 PG (26-34); Mean Corpuscular Volume 87.8 fL (80-100); Monocytes Absolute Auto 800 /uL (0-900); Neutrophils Absolute Auto 8400 /uL (1500-7000); Neutrophils Percent Auto 75.9 % (50-75); Platelet Count 281 X10^3/uL (150-400); Red Blood Cell Count 4.64 X10^6/uL (4.0-5.2); Red Cell Distribution Width 13.7 % (11.6-14.8); White Blood Cell Count 11.1 X10^3/uL (4.5-11.0)
[2022-10-04 00:33] LABS: Alanine Aminotransferase 23 IU/L (<35); Albumin 4.3 g/dL (3.5-5.0); Albumin Globulin Ratio 1.3 (1.0-2.8); Alkaline Phosphatase 144 U/L (38-126); Aspartate Aminotransferase 24 IU/L (14-36); BUN Creatinine Ratio 25.6 (6-22); Bilirubin Total 0.4 mg/dL (0.2-1.3); Blood Urea Nitrogen 20 mg/dL (7-17); Calcium 9.9 mg/dL (8.4-10.2); Carbon Dioxide 29 mmol/L (22-32); Chloride 100 mmol/L (98-107); Estimated Glomerular Filt Rate > 60 mL/min (>60); Globulin 3.2 g/dL (1.7-4.1); Glucose 167 mg/dL (80-110); HEMOLYSIS < 15 (0-50); Lipase 82 U/L (23-300); Potassium 4.2 mmol/L (3.4-5.1); Sodium 135 mmol/L (137-145); Total Protein 7.5 g/dL (6.3-8.2)
--- NOTE | 2022-10-04 00:38 | ED_ITS ---
HPI - Abdominal Pain General Chief Complaint: Abdominal Pain Stated Complaint: R side pain Time Seen by Provider: 10/04/22 00:33 Source: patient Mode of arrival: Wheelchair History of Present Illness HPI narrative: 81-year-old female nonsmoker presents with family in the chief complaint of a relatively sudden onset right-sided flank pain without obvious provocation or palliation. She states her symptoms have been gradually worsening over the past few days and perhaps it is wrapping around her flank bit. She is had nausea but denies any vomiting nor fever or chills. She denies any dysuria or change in bowel habits. She does think that her symptoms likely got worse tonight after eating pizza with sausage but then again states that the pain comes and goes no apparent pattern. She had seen her primary care provider who has an ultrasound ordered for Thursday. Related Data Home Medications Medication Instructions Recorded Confirmed cholecalciferol (vitamin D3) 50 100 mcg PO DAILY 01/22/21 05/19/22 mcg (2,000 unit) capsule (Vitamin D3) sennosides 8.6 mg tablet (Natural 8.6 mg PO DAILY 11/12/21 05/19/22 Vegetable Laxative (sennosides)) ResMed Air[employer]ve VAuto 12/26/21 05/19/22 Previous Rx's Medication Instructions Recorded docusate sodium 100 mg capsule 200 mg PO BID #120 caps 10/15/20 (Colace) aspirin 81 mg tablet,delayed 81 mg PO DAILY #60 tabs 05/03/21 release flaxseed oil 1,000 mg capsule 1,000 mg PO DAILY #30 caps 05/03/21 (Many-3 Flaxseed Oil) metformin 500 mg tablet See Rx Instructions .Route 11/12/21 .COMPLEX #90 tabs albuterol sulfate 90 mcg/actuation 2 puff inhalation Q6H PRN 12/11/21 aerosol inhaler shortness of breath or wheezing #8.5 grams benzonatate 100 mg capsule 100 mg PO BID PRN cough #20 caps 04/07/22 cyanocobalamin (vitamin B-12) 1,000 mcg PO DAILY #30 caps 05/19/22 1,000 mcg capsule ramipril 5 mg capsule See Rx Instructions .Route 05/19/22 .COMPLEX #90 caps cefpodoxime 200 mg tablet 200 mg PO BID 10 days #20 tabs 10/04/22 hydrocodone 5 mg-acetaminophen 325 1 tab PO Q4-6H PRN pain #10 tabs 10/04/22 mg tablet ondansetron 4 mg disintegrating 4 mg PO TID-QID PRN nausea and 10/04/22 tablet vomiting #10 tabs Allergies Allergy/AdvReac Type Severity Reaction Status Date / Time No Known Drug Allergies Allergy Verified 10/03/22 22:53 Review of Systems Review of Systems Narrative: GENERAL: Denies chills, fatigue, malaise, fever, sweats. HEENT: Denies sinus pain, ear pain, sore throat, difficulty swallowing, dizziness. RESPIRATORY: Denies dyspnea, cough, wheezing, hemoptysis, sputum. CARDIOVASCULAR: Denies chest pain, palpitations, orthopnea, edema, GASTROINTESTINAL: See HPI : See HPI MUSCULOSKELETAL: denies weakness, joint pain, or bony pain SKIN: Denies rash, skin lesions, or other NEUROLOGIC: Denies weakness, headache, numbness, change in speech, confusion, seizures, incoordination. PSYCHIATRIC: No concerning psychosocial issues. 12 point review of systems is negative except for those stated above Patient History Medical History Ankle fracture (~2014) Anxiety Bronchitis Bulging disc (~1979) Cataracts, bilateral Colon polyps Depression (~2001) Diabetes Diverticulosis Excessive daytime sleepiness GI bleed (11/2019) Gout (~2013) HTN (hypertension) Hypothyroidism Lumbar spinal stenosis Obesity (BMI 30-39.9) Obstructive sleep apnea (~12/2018) Positive PPD (~1978) Skin cancer Snoring Type 2 diabetes mellitus Surgical History Anesthesia H/O colonoscopy with polypectomy History of ear surgery (~2015) History of hysterectomy (~1984) Hx of bilateral cataract extraction Hx of hemorrhoidectomy (~1980) Family History Father Fractured hip Sister Cancer Grandfather Sepsis Social History marital status: number of children: 1 household members: none lives independently: Yes housing: house education level: college occupational status: other Smoking Status: Former smoker alcohol intake: never substance use type: does not use Smoking Status: Former smoker alcohol intake frequency: 0-2 drinks per day Substance Use Type: does not use Exam Narrative Exam Narrative: GENERAL: [81] year old patient appears stated age. Well-developed patient, in mild distress. HEAD: Atraumatic. Normocephalic. EYES: Pupils equal round and reactive. Extraocular motions intact. No scleral icterus. No injection or drainage. ENT: Nose without bleeding, purulent drainage. Throat without erythema, tonsillar hypertrophy or exudate. Airway patent. NECK: Trachea midline. Non tender CARDIOVASCULAR: Regular rate and rhythm without murmurs, gallops, or rubs. RESPIRATORY: Clear to auscultation. Breath sounds equal bilaterally. No wheezes, rales, or rhonchi. GASTROINTESTINAL: Abdomen soft, non-tender, nondistended. EXTREMITIES: No edema or joint tenderness. BACK: Nontender without deformity or crepitance. No flank tenderness. NEURO: AOx3. SKIN: No rash or erythema of visible areas Initial Vital Signs Initial Vital Signs: Vital Signs Temperature 97.1 F L 10/03/22 22:36 Pulse Rate 85 10/03/22 22:36 Respiratory Rate 18 10/03/22 22:36 Blood Pressure 201/84 H 10/03/22 22:36 Pulse Oximetry 98 10/03/22 22:36 Oxygen Delivery Method Room Air 10/03/22 22:36 Course Orders Ordered: ED Orders 10/04/22 00:00 EKG-12 Lead Stat 10/04/22 00:06 Complete Blood Count AUTO DIFF Stat Comprehensive Metabolic Panel Stat Lipase Stat 10/04/22 00:49 CT abdomen pelvis w con Stat 10/04/22 02:38 Urinalysis and Microscopic Stat Urine Culture Stat Fentanyl (Fentanyl 100 Mcg/2 Ml Inj) 50 mcg IV Q1H PRN PRN Reason: Pain, Severe (7-10) Last Admin: 10/04/22 01:42 Dose: 50 mcg Documented By: SUPRIYA Ondansetron HCl (Ondansetron 4 Mg Odt) 4 mg PO NOW PRN PRN Reason: Nausea And Vomiting Ondansetron HCl (Ondansetron 4 Mg/2 Ml Inj) 4 mg IV NOW PRN PRN Reason: Nausea And Vomiting Discontinued Medications Hydrocodone Bitart/Acetaminophen (Hydrocodone/Acet 5/325 Prepack) 1 bottle MISC SEEINSTR ONE Stop: 10/04/22 03:10 Last Admin: 10/04/22 03:22 Dose: 1 bottle Sodium Chloride (Normal Saline 0.9%) 500 mls @ 1,000 mls/hr IV BOLUS ONE Stop: 10/04/22 01:18 Last Infusion: 10/04/22 01:42 Dose: 0 mls/hr Documented By: Admin: 10/04/22 00:54 Dose: 1,000 mls/hr Documented By: SUPRIYA Acetaminophen (Ofirmev) 1,000 mg in 100 mls @ 400 mls/hr IV NOW ONE Stop: 10/04/22 01:03 Last Infusion: 10/04/22 01:22 Dose: 0 mls/hr Documented By: Admin: 10/04/22 00:55 Dose: 400 mls/hr Documented By: SUPRIYA Ceftriaxone Sodium 1,000 mg/ (Sodium Chloride) 100 mls @ 200 mls/hr IV NOW ONE Stop: 10/04/22 03:10 Last Admin: 10/04/22 03:21 Dose: 200 mls/hr Ondansetron HCl (Ondansetron 4 Mg Odt Prepack) 1 bottle MISC SEEINSTR ONE Stop: 10/04/22 03:10 Last Admin: 10/04/22 03:22 Dose: 1 bottle Vital Signs Vital signs: Vital Signs - 8 hr 10/03/22 22:36 10/04/22 00:28 10/04/22 00:07 Temperature 97.1 F L Pulse Rate 85 83 87 Respiratory Rate 18 22 Blood Pressure 201/84 H 189/86 H Pulse Oximetry 98 97 Oxygen Delivery Method Room Air 10/04/22 00:18 10/04/22 00:18 10/04/22 00:30 Temperature Pulse Rate 82 82 Respiratory Rate 20 26 H Blood Pressure 189/86 H Pulse Oximetry 97 96 Oxygen Delivery Method 10/04/22 01:00 10/04/22 01:30 10/04/22 01:45 Temperature Pulse Rate 84 84 Respiratory Rate 28 H 17 Blood Pressure 155/74 H Pulse Oximetry 97 96 Oxygen Delivery Method 10/04/22 01:45 10/04/22 02:11 Temperature Pulse Rate 83 84 Respiratory Rate 23 14 Blood Pressure Pulse Oximetry 97 96 Oxygen Delivery Method MDM - Abdominal Pain Lab Data 10/04/22 00:06 10/04/22 00:06 Labs: Lab Results 10/04/22 10/04/22 10/04/22 Range/Units 00:06 00:06 02:38 WBC 11.1 H (4.5-11.0) X10^3/uL RBC 4.64 (4.0-5.2) X10^6/uL Hgb 13.7 (12.0-16.0) g/dL Hct 40.7 (36-46) % MCV 87.8 (80-100) fL MCH 29.6 (26-34) PG MCHC 33.7 (30-36) % RDW 13.7 (11.6-14.8) % Plt Count 281 (150-400) X10^3/uL Neut % (Auto) 75.9 H (50-75) % Lymph % (Auto) 16.0 L (25-40) % Hand % (Auto) 7.0 (3-14) % Eos % (Auto) 0.6 L (2-4) % Baso % (Auto) 0.5 (0-2) % Neut # (Auto) 8400 H (3175-2281) /uL Lymph # (Auto) 1800 (1873-8148) /uL Hand # (Auto) 800 (0-900) /uL Eos # (Auto) 100 (0-450) /uL Baso # (Auto) 100 (0-100) /uL Sodium 135 L (137-145) mmol/L Potassium 4.2 (3.4-5.1) mmol/L Chloride 100 (98-107) mmol/L Carbon Dioxide 29 (22-32) mmol/L BUN 20 H (7-17) mg/dL Creatinine 0.78 (0.52-1.04) mg/dL Estimated GFR > 60 (>60) mL/min BUN/Creatinine Ratio 25.6 H (6-22) Glucose 167 H (80-110) mg/dL Calcium 9.9 (8.4-10.2) mg/dL Total Bilirubin 0.4 (0.2-1.3) mg/dL AST 24 (14-36) IU/L ALT 23 (<35) IU/L Alkaline Phosphatase 144 H (38-126) U/L Total Protein 7.5 (6.3-8.2) g/dL Albumin 4.3 (3.5-5.0) g/dL Globulin 3.2 (1.7-4.1) g/dL Albumin/Globulin Ratio 1.3 (1.0-2.8) Lipase 82 (23-300) U/L Urine Color Yellow Urine Appearance Clear Urine pH 5.5 (4.5-8.0) Ur Specific [place] 1.015 (1.000-1.035) Urine Protein Negative (Negative) Urine Glucose (UA) Negative (Negative) g/dL Urine Ketones Negative (NEGATIVE) Urine Occult Blood Negative (Negative) Urine Nitrate Negative (Negative) Urine Bilirubin Negative (NEGATIVE) Urine Urobilinogen 0.2 (0.2) E.U./dL Ur Leukocyte Esterase 1+ H (NEGATIVE) Urine RBC None seen (0-5/HPF) Urine WBC 5-10/hpf H (0-5/HPF) Ur Squamous Epith Cells 1-5 /hpf (0-5/HPF) Urine Bacteria Occasional (0-1) (None) Ur Culture Indicated? Specimen cultured Point of care testing: Urine Dip Bedside Urine Glucose Negative Bedside Urine Bilirubin - Negative Bedside Urine Ketone - Negative Urine Specific [place] 1.015 Bedside Urine Occult Blood - Negative Bedside Urine pH 5.5 Bedside Urine Protein - Negative Bedside Urine Urobilinogen - Negative Bedside Urine Nitrite - Negative Bedside Urine Leukocytes + 70 Esterase MDM Narrative Medical decision making narrative: CC: 81-year-old female with colicky type right flank pain Complicating co-morbidities: Age, diabetes, elevated BMI Data collected from: Patient Medical records reviewed: Prior notes reviewed in our EMR Differential considered, but not limited to: Kidney stone versus gallbladder disease versus urinary tract infection versus musculoskeletal versus other Exam documented above, pertinent findings include: Colicky type flank pain without obvious and clear provocation. Heart rate regular, lungs clear to auscultation, abdomen soft and nontender Lab Test results independently reviewed as above. Pertinent findings: Urine was subtle suggestion infection. Slight leukocytosis with no clear left shift, electrolytes and renal function within normal Independently reviewed EKG as above Imaging studies independently reviewed: Mild right hydronephrosis with a right renal stone but no ureteral stone noted, normal appendix. Gallbladder and bile ducts unremarkable Treatments: Saline, fentanyl, Zofran, Rocephin Re-evaluations: Significant improvement Discussion: Patient with colicky type right-sided flank pain largely thought to be multifactorial. She does have some urinary frequency and subtle suggestion of infection reason suspicion of this as an element, also she has a known radicular type symptoms with the occasional radiation of pain down her leg but states repeatedly that the pain that brought her in tonight does not involve any radicular symptoms it is not obviously made worse by any activity. Elements of her story, exam and imaging are suggestive of the possibility of a kidney stone. There is no evidence of bowel involvement. When all as sudden done her pain is well controlled, she has no signs of sepsis, she is tolerating orals and appropriate for discharge Disposition: see below, along with detailed discharge instructions that have been reviewed with patient as well as indications for ED re-evaluation and additional outpatient follow up Discharge Plan Departure Patient Disposition: Home Clinical Impression: Acute flank pain, Kidney calculi, Acute UTI Instructions: DI for Kidney Stones, DI for Urinary Tract Infection (UTI) Activity Restrictions/Additional Instructions: *You have been diagnosed with [right flank pain with subtle signs of urine infection in the possibility of a kidney stone.] *What to do: *Please continue to take your regular medications as directed. [ x] New medication prescriptions sent to your pharmacy: [ [facility]] [ ] New medication written as a paper prescription [ ] No new medications given *Please follow up with your primary care provider in 2-3 days, call for an appointment. Let them know you were seen in the Emergency Department and that we ask that you be seen in follow up. We will electronically transmit a record of today's note if your PCP is in our system *If you do not have a primary care provider please contact the [facility] Resource line at [phone]. They will ask some questions about your medical history and help get you set up with a doctor in the community. *Return to Emergency Department if you should have any new, worsening or concerning symptoms, such as [fever greater than 101 F, shaking chills, worsening pain, persistent vomiting or other bothersome symptoms] You have been prescribed a short course of narcotic medications. These are potentially dangerous and addictive medications that should be used carefully. While on these medications you cannot drive or operate heavy machinery. Additionally, you cannot sign legal documents or perform any duties such as this. Many people get constipated on narcotic medications so it would be advisable to discuss stool softeners with the pharmacist when you pickers material handlers your prescription. Please understand that we cannot provide further refills of narcotics or controlled substances through the ED and your pain management will need to be through your Primary Care Provider Prescriptions: New cefpodoxime 200 mg tablet 200 mg PO BID 10 Days Qty: 20 0RF Rx Instructions: must administer with a meal/food hydrocodone-acetaminophen 5-325 mg tablet 1 tab PO Q4-6H PRN (Reason: pain) Qty: 10 0RF ondansetron 4 mg tablet,disintegrating 4 mg PO TID-QID PRN (Reason: nausea and vomiting) Qty: 10 0RF No Action docusate sodium [Colace] 100 mg capsule 200 mg PO BID Qty: 120 3RF sennosides [Natural Veg Laxative(sennosid)] 8.6 mg tablet 8.6 mg PO DAILY aspirin 81 mg tablet,delayed release (DR/EC) 81 mg PO DAILY Qty: 60 0RF flaxseed oil [Many-3 Flaxseed Oil] 1,000 mg capsule 1,000 mg PO DAILY Qty: 30 0RF Rx Instructions: administer with a meal ramipril 5 mg capsule See Rx Instructions .ROUTE .COMPLEX Qty: 90 3RF Dose Instruction: TAKE ONE CAPSULE BY MOUTH ONE TIME DAILY Rx Instructions: TAKE ONE CAPSULE BY MOUTH ONE TIME DAILY cyanocobalamin (vitamin B-12) 1,000 mcg capsule 1,000 mcg PO DAILY Qty: 30 0RF albuterol sulfate 90 mcg/actuation HFA aerosol inhaler 2 puff inhalation Q6H PRN (Reason: shortness of breath or wheezing) Qty: 8.5 0RF benzonatate 100 mg capsule 100 mg PO BID PRN (Reason: cough) Qty: 20 0RF metformin 500 mg tablet See Rx Instructions .ROUTE .COMPLEX Qty: 90 3RF Dose Instruction: TAKE ONE TABLET BY MOUTH ONE TIME DAILY Rx Instructions: TAKE ONE TABLET BY MOUTH ONE TIME DAILY cholecalciferol (vitamin D3) [Vitamin D3] 50 mcg (2,000 unit) Capsule 100 mcg PO DAILY (DME) [facility] Cyndy Hopkins See Rx Instructions .Route .MEDSUPPLY Rx Instructions: IPAP: 11 EPAP: 7 EASY BREATH: On DME: ROTECH KELLI: 02/21/19 Referrals: Alysia Kennedy DO [Primary Care Provider] - Stand Alone Forms: Patient Portal/API
--- NOTE | 2022-10-04 00:49 | DI.CT.S_ITS ---
PROCEDURE: CT ABDOMEN PELVIS W CON INDICATIONS: severe R sided abdominal pain TECHNIQUE: After the administration of oral and IV contrast, axial sections were acquired from the lung bases to the pubic symphysis. Coronal and sagittal reformats were performed. For radiation dose reduction, the following was used: automated exposure control, adjustment of mA and/or kV according to patient size. COMPARISON: None. FINDINGS: Image quality: Portions of the lower pelvis are suboptimally evaluated secondary to metallic streak artifact from hip arthroplasty. Lung bases: Unremarkable. Heart: No significant findings. ABDOMEN: Liver: Hepatic steatosis is present. Gallbladder: Unremarkable. Biliary ducts: Unremarkable. Pancreas: Unremarkable. Spleen: Unremarkable. Adrenal Glands: Unremarkable. Kidneys and Ureters: Nonobstructing 5 mm inferior right renal calcification. There is a minimal appearance of hydronephrosis in the superior right renal pole. There is a very faint appearance of calcification within the distal right ureter on series 2, image 73. Stomach and Bowel: Stomach, small bowel loops, and colon are nonobstructive. Moderate colonic stool is present. Scattered diverticula are present without inflammatory change. Peritoneum: No abnormal intraperitoneal fluid. No free air. Ventral Wall: No hernia. Abdominal Nodes: No retroperitoneal or mesenteric adenopathy by size criteria. Vessels: Aorta and inferior vena cava are normal in size. PELVIS: Pelvic Organs: Hysterectomy. Bladder: Unremarkable. Pelvic Nodes: No enlarged lymph nodes. Miscellaneous: No inguinal hernias are seen. Bones: Right hip arthroplasty is present. IMPRESSION: Minimal prominence of the superior right renal pole. There is a calcification in the inferior pole which appears to be nonobstructive. Very faint appearance of calcification, punctate in size in the distal right ureter is above. This could represent a distal ureteral calculus, although very small and faint for true characterization. The above findings are concordant with preliminary report. Dictated by: Dolores Boykin M.D. on 10/04/2022 at 8:24 Approved by: Dolores Boykin M.D. on 10/04/2022 at 8:32
[2022-10-04] MEDS: SODIUM CHLORIDE 0.9% 500 ML 1000 ML IV (00:54)
[2022-10-04] MEDS: ACETAMINOPHEN IV 1,000 MG/100 ML VIAL 400 MG IV (00:55)
[2022-10-04] MEDS: fentaNYL 100 MCG/2 ML INJ 50 MCG IV ×2 (01:42→03:36)
[2022-10-04 02:40] LABS: Appearance Urine UA CLEAR; Bilirubin Urine UA NEGATIVE (NEGATIVE); Color Urine UA YELLOW; Glucose Urine UA NEGATIVE (Negative); Ketones Urine UA NEGATIVE (NEGATIVE); Leukocyte Esterase Urine UA 1+ (NEGATIVE); Nitrite Urine UA NEGATIVE (Negative); Occult Blood Urine UA NEGATIVE (Negative); Protein Urine UA NEGATIVE (Negative); Specific Gravity Urine UA 1.015 (1.000-1.035); Urobilinogen Urine UA 0.2 E.U./dL (0.2)
[2022-10-04 02:41] LABS: pH Urine UA 5.5 (4.5-8.0)
[2022-10-04 02:55] LABS: Bacteria Urine Occasional (0-1); Culture Indicated Urine Specimen Cultured; RBC Urine None Seen (0-5/HPF); Squamous Epithelial Cell Urine 1-5 /HPF (0-5/HPF); WBC Urine 5-10/HPF (0-5/HPF)
[2022-10-04] MEDS: cefTRIAXone 1,000 MG in SODIUM CHLORIDE 0.9% 100 ML 200 MG IV (03:21)
[2022-10-04] MEDS: ONDANSETRON 4 MG ODT PREPACK 1 BOTTLE MISC (03:22)
[2022-10-04] MEDS: HYDROCODONE/ACET 5/325 PREPACK 1 BOTTLE MISC (03:22)
== END 2022-10-04 04:04 | disposition home or self-care (01) ==
PROVIDERS: Emergency Provider Emergency Medicine; PCP Family Medicine
DX: N20.0 Calculus of kidney (principal); N39.0 Urinary tract infection, site not specified; R10.9 Unspecified abdominal pain
CPT/HCPCS: 36415; 74177; 80053; 81001; 81003; 83690; 85025; 87086; 93005; 96365; 96367; 96375; 96376; 99284; J0131; J0696; J3010; Q9967

== ENCOUNTER → 2022-10-06 08:11 | Outpatient (CLI) | payer MEDICARE, OTHER, SELFPAY ==
[2021-01-24 18:04] VITALS: BMI 36.0
--- NOTE | 2022-10-06 08:12 | DI.US.S_ITS ---
PROCEDURE: US RENAL COMPLETE INDICATIONS: RIGHT SIDED FLANK PAIN TECHNIQUE: Real-time scanning was performed of the kidneys and bladder, with image documentation. COMPARISON: [facility], CT, CT ABDOMEN PELVIS W CON, 10/04/2022, 1:25. FINDINGS: Kidneys: Kidneys are normal in size. Right kidney measures 9.5 cm long; left kidney measures 8.7 cm long. Right renal cortical thickness is 2.0 cm; left renal cortical thickness is 2.4 cm. Renal cortical echotexture is normal. No hydronephrosis. There is a 7 x 6 x 9 mm calcification within the midpole the right kidney. Multiple echogenic foci are present within the left kidney the largest in the midpole measuring 6 x 3 x 6 mm. No suspicious solid mass lesions. Bladder: Pre-void bladder volume is 54 mL. Post-void residual is not measured. Pre-void images demonstrate no intraluminal masses or stones. On pre-void images, only the left ureteral jet is noted with color Doppler interrogation. (Of note, ureteral jets may not be detectable in up to 25% of cases due to insufficient differences in specific gravity between ureteral and bladder urine). Miscellaneous: No free pelvic fluid. IMPRESSION: Bilateral renal calculi without obstruction. Dictated by: Dloores Boykin M.D. on 10/06/2022 at 9:02 Approved by: Dolores Boykin M.D. on 10/06/2022 at 9:03
== END ==
PROVIDERS: PCP Family Medicine; Referring Provider Family Medicine; Visit Provider Family Medicine
DX: R10.9 Unspecified abdominal pain (principal); N20.0 Calculus of kidney
CPT/HCPCS: 76770

== ENCOUNTER → 2022-11-25 15:01 | Outpatient (CLI) | payer MEDICARE, OTHER, SELFPAY ==
[2021-01-24 18:04] VITALS: BMI 36.0
--- NOTE | 2022-11-25 15:04 | DI.RAD.S_ITS ---
PROCEDURE: XR KUB INDICATIONS: possible kidney stones TECHNIQUE: One view of the abdomen acquired. COMPARISON: [facility], CT, CT ABDOMEN PELVIS W CON, 10/04/2022, 1:25. FINDINGS: Surgical changes and devices: None. Bowel: Bowel gas pattern is normal. Soft tissues: 6 millimeter calcification projects over the right kidney. Visualized solid organ contours appear normal in size. Bones: No suspicious bony lesions. Spine degenerative disc disease and facet arthropathy. Partially visualized right hip arthroplasty. IMPRESSION: 6 millimeter millimeter right renal stone. Dictated by: Jessy Curiel MD, PhD on 11/25/2022 at 16:12 Approved by: Jessy Curiel MD, PhD on 11/25/2022 at 16:14
== END ==
PROVIDERS: PCP Physician Assistant; Referring Provider Specialist; Visit Provider Specialist
DX: Z87.19 Personal history of other diseases of the digestive system (principal); N20.0 Calculus of kidney
CPT/HCPCS: 74018

== ENCOUNTER 2022-12-26 06:25 | Day surgery (SDC) | payer MEDICARE, OTHER, SELFPAY ==
[2021-01-24 18:04] VITALS: BMI 36.0
[2022-12-23 16:41] VITALS: BMI 36.8
--- NOTE | 2022-12-26 | DI.RAD.S_ITS ---
PROCEDURE: XR KUB INDICATIONS: Right nephrolithiasis TECHNIQUE: One view of the abdomen acquired. COMPARISON: [facility], , XR KUB, 11/25/2022, 15:01. FINDINGS: Surgical changes and devices: Right hip arthroplasty is present. Bowel: Bowel gas pattern is normal. Soft tissues: 5 mm calcification is seen projecting over the inferior pole of the right kidney, unchanged. No new abdominal calcification is seen. Visualized solid organ contours appear normal in size. Bones: No suspicious bony lesions. Multilevel degenerative changes and levoconvex curvature within the spine. IMPRESSION: Stable right renal calculus. Approved by: Terry García M.D. on 12/26/2022 at 10:56
[2022-12-26 06:52] VITALS: BP 156/85; PULSE 88; RESP 17; TEMP 36.4; O2SAT 95; BMI 36.8
[2022-12-26] MEDS: LACTATED RINGERS 1,000 ML 21 ML IV (07:04)
--- NOTE | 2022-12-26 07:19 | P.OP.PRE_ITS ---
Pre-operative Note COVID-19 Criteria for continued procedure: Expected advancement of disease process, Continuing or worsening of significant or severe pain, Deterioration of the patient's condition or overall health and Delay expected to result in less- positive ultimate med/surg outcome Interval Note History & Physical reviewed/Exam performed by Physician: Yes Changes to H&P: No
--- NOTE | 2022-12-26 07:54 | SUR.OPER ---
Supine on ESWL table, head on pillow, arms padded and tucked at sides, legs uncrossed, tape over blanket over lower legs.
[2022-12-26 08:39] VITALS: BP 154/79; PULSE 76; RESP 16; TEMP 36; O2SAT 95
[2022-12-26 08:45] VITALS: BP 138/83; PULSE 74; RESP 16; O2SAT 94
[2022-12-26 08:49] VITALS: BP 149/84; PULSE 77; RESP 16; O2SAT 98
--- NOTE | 2022-12-26 08:49 | P.OP_ITS ---
Operative Date/Time/Diagnoses Date of procedure: 12/26/22 Time of procedure: 08:30 Pre-op diagnosis: 1. 6 x 8 mm right renal calculus. 2. Right renal colic. Procedure & Clinicians Procedure: 1. Right extracorporeal shockwave lithotripsy (maximal power level 7.0 times 2500 shocks) Same procedure as scheduled: Yes Indications: 1. 6 x 8 mm right renal pelvic calculus. 2. Intermittent right renal colic. Surgeon: Nixon Yi Click Yes if Unassisted: Yes Anesthesia Type: General Operative Notes Findings: Index calculus unchanged in size and position compared to preoperative imaging. Closure Type: not applicable Specimen(s): none sent Estimated Blood Loss (mL): 0 Procedure in detail: Patient was positioned supine was administered general anesthesia. Index calculus was then localized in the X, Y, and Z plane. Lithotripsy was then commenced at minimal power level for 200 shocks. A 2 minute pause was then conducted. Lithotripsy was then again resumed and the power level was gradually increased to a maximum of 7.0. The stone fragments were relocalized numerous times throughout the case. At 2500 shocks there was excellent evidence of stone comminution radiographically. The treatment was then halted. The patient was then awakened, transferred to [facility], and transported recovery in stable condition. Complications: none Post-operative Condition: stable Disposition: PACU Plan for aftercare: Discharge home.
[2022-12-26 08:54] VITALS: BP 144/82; PULSE 78; RESP 16; O2SAT 98
[2022-12-26] MEDS: FUROSEMIDE 40 MG/4 ML VIAL 20 MG IV (09:03)
[2022-12-26 09:38] VITALS: BP 156/85; PULSE 88; RESP 16; TEMP 36.4; O2SAT 98
[2023-01-04 23:39] LABS: Ca oxalate monohydr 100 % (.); Size 2x2 mm (.)
== END 2022-12-26 09:41 | disposition home or self-care (01) ==
PROVIDERS: PCP Family Medicine; Referring Provider Specialist; Visit Provider Specialist
PROC: (CPT 50590; principal; 2022-12-26 07:45)
DX: N20.0 Calculus of kidney (principal)
CPT/HCPCS: 50590; 74018; 82365; J0330; J1940; J2405; J3010

== ENCOUNTER → 2023-01-26 14:57 | Outpatient (CLI) | payer MEDICARE, OTHER, SELFPAY ==
[2021-01-24 18:04] VITALS: BMI 36.0
--- NOTE | 2023-01-26 15:01 | DI.RAD.S_ITS ---
PROCEDURE: XR KUB INDICATIONS: calculus of kidney TECHNIQUE: One view of the abdomen acquired. COMPARISON: [facility], CR, XR KUB, 12/26/2022, 6:23. [facility], CR, XR KUB, 11/25/2022, 15:01. FINDINGS: Possible 7 mm calcification projecting over the right mid-upper kidney. Previously demonstrated calcification projecting over the right inferior kidney longer visualized. Visualized large and small bowel is non-dilated. Right hip arthroplasty. IMPRESSION: Possible 7 mm calcification projecting over the right mid-upper kidney. Previously demonstrated calcification projecting over the right inferior kidney longer visualized. Dictated by: Terry Rizvi M.D. on 01/26/2023 at 18:25 Approved by: Terry Rizvi M.D. on 01/26/2023 at 18:26
[2023-01-26 17:13] LABS: Calcium 9.6 mg/dL (8.4-10.2); Uric Acid 7.4 mg/dL (2.5-6.2)
[2023-01-28 06:40] LABS: Parathyroid Hormone Int 73 pg/mL (15-65)
== END ==
PROVIDERS: PCP Family Medicine; Referring Provider Specialist; Visit Provider Specialist
DX: N20.0 Calculus of kidney (principal)
CPT/HCPCS: 74018; 82310; 83970; 84550

== ENCOUNTER → 2023-03-16 09:10 | Outpatient (CLI) | payer MEDICARE, OTHER, SELFPAY ==
[2023-02-10 10:51] VITALS: BMI 36.0
[2023-03-16 11:10] LABS: Hemoglobin A1C% w Est Avg Glu 6.7 % (4.0-6.0)
[2023-03-16 11:25] LABS: Alanine Aminotransferase 19 IU/L (<35); Albumin Globulin Ratio 1.2 (1.0-2.8); Alkaline Phosphatase 96 U/L (38-126); Aspartate Aminotransferase 23 IU/L (14-36); Bilirubin Total 0.4 mg/dL (0.2-1.3); Blood Urea Nitrogen 16 mg/dL (7-17); Calcium 10.2 mg/dL (8.4-10.2); Carbon Dioxide 30 mmol/L (22-32); Chloride 100 mmol/L (98-107); Cholesterol 183 mg/dL (140-199); Estimated Glomerular Filt Rate > 60 mL/min (>60); Globulin 3.3 g/dL (1.7-4.1); Glucose 134 mg/dL (80-110); HDL Cholesterol 45 mg/dL (40-60); HEMOLYSIS < 15 (0-50); LDL Cholesterol Calculated 94 mg/dL (<100); Potassium 4.2 mmol/L (3.4-5.1); Sodium 137 mmol/L (137-145); Total Protein 7.3 g/dL (6.3-8.2); Triglycerides 218 mg/dL (35-150)
[2023-03-16 11:31] LABS: Calcium 10.2 mg/dL (8.4-10.2); Uric Acid 6.7 mg/dL (2.5-6.2)
[2023-03-16 12:01] LABS: TSH w/ Reflex to FT4 2.05 uIU/mL (0.47-4.68)
[2023-03-16 12:05] LABS: Creatinine Urine Random 60.1 mg/dL
[2023-03-16 12:09] LABS: Microalbumi Creatinin Ratio Ur 54.9 ug/mg CR (<30); Microalbumin Urine Random 3.3 mg/dL (0-1.6)
[2023-03-16 12:12] LABS: Vitamin B12 956 pg/mL (239-931)
[2023-03-18 20:36] LABS: Calcium 9.5 mg/dL (8.7-10.3); Parathyroid Hormone, Intact 55 pg/mL (15-65)
== END ==
PROVIDERS: Specialist; PCP Family Medicine; Referring Provider Physician Assistant; Visit Provider Physician Assistant
DX: E11.9 Type 2 diabetes mellitus without complications (principal); I10 Essential (primary) hypertension; R74.8 Abnormal levels of other serum enzymes; E78.5 Hyperlipidemia, unspecified; R53.83 Other fatigue; N23 Unspecified renal colic; N20.0 Calculus of kidney
CPT/HCPCS: 36415; 80053; 80061; 82043; 82310; 82570; 82607; 83036; 83970; 84443; 84550

== ENCOUNTER → 2023-03-25 12:51 | Outpatient (CLI) | payer MEDICARE, OTHER, SELFPAY ==
[2023-02-10 10:51] VITALS: BMI 36.0
--- NOTE | 2023-03-25 12:56 | DI.RAD.S_ITS ---
PROCEDURE: XR KUB INDICATIONS: right nephrolithiasis TECHNIQUE: One view of the abdomen acquired. COMPARISON: [facility], CR, XR KUB, 12/26/2022, 6:23. [facility], CR, XR KUB, 01/26/2023, 15:19. [facility], CR, XR KUB, 11/25/2022, 15:01. FINDINGS: 7 millimeter calcification projects near the right kidney. No definite left renal stone visualized. Nonobstructive bowel gas pattern. Right hip arthroplasty. IMPRESSION: A 7 millimeter calcification projects near the right kidney, possible renal or proximal ureteral stone. CT KUB could be obtained if clinically indicated. Dictated by: Terry Rizvi M.D. on 03/26/2023 at 9:37 Approved by: Terry Rizvi M.D. on 03/26/2023 at 9:39
== END ==
PROVIDERS: PCP Family Medicine; Referring Provider Specialist; Visit Provider Specialist
DX: Z09 Encounter for follow-up examination after completed treatment for conditions other than malignant neoplasm (principal); Z87.442 Personal history of urinary calculi
CPT/HCPCS: 74018

== ENCOUNTER → 2023-04-07 09:08 | Outpatient (CLI) | payer MEDICARE, OTHER, SELFPAY ==
[2023-02-10 10:51] VITALS: BMI 36.0
[2023-04-07 11:13] LABS: Calcium 10.4 mg/dL (8.4-10.2); Uric Acid 6.8 mg/dL (2.5-6.2)
[2023-04-09 09:15] LABS: Calcium 8.4 mg/dL (8.7-10.3); Parathyroid Hormone, Intact 66 pg/mL (15-65)
== END ==
PROVIDERS: PCP Family Medicine; Referring Provider Specialist; Visit Provider Specialist
DX: N20.0 Calculus of kidney (principal); Z87.442 Personal history of urinary calculi
CPT/HCPCS: 36415; 82310; 83970; 84550

== ENCOUNTER → 2023-04-08 11:16 | Outpatient (CLI) | payer MEDICARE, OTHER, SELFPAY ==
[2023-02-10 10:51] VITALS: BMI 36.0
--- NOTE | 2023-04-08 11:17 | DI.CT.S_ITS ---
PROCEDURE: CT KIDNEY URETER BLADDER (KUB) INDICATIONS: H/O Nephrolithiasis TECHNIQUE: Axial sections were acquired from the lung bases to the pubic symphysis. Coronal and sagittal reformats were performed. For radiation dose reduction, the following was used: automated exposure control, adjustment of mA and/or kV according to patient size. COMPARISON: [facility], CT, CT ABDOMEN PELVIS W CON, 10/04/2022, 1:25. [facility], CT, CT ABDOMEN PELVIS W CON, 12/04/2019, 7:59. [facility], CR, XR KUB, 03/25/2023, 13:06. FINDINGS: Image quality: There is artifact associated with the metallic hardware. Lung bases: A small hiatal hernia is incidentally noted. Heart: No significant findings. URINARY: Right Kidney: A nonobstructing right-sided kidney stone is seen, measuring 5 mm and 250 Hounsfield units. No right-sided hydronephrosis is seen. Right Ureter: No hydroureter. Left Kidney: No stones or hydronephrosis. Left Ureter: No hydroureter. Bladder: Normal wall thickness. No stones. ABDOMEN: Liver: Unremarkable. Gallbladder: Unremarkable. Biliary ducts: Unremarkable. Pancreas: Unremarkable. Spleen: Unremarkable. Adrenal Glands: Unremarkable. Stomach and Bowel: Stomach, small bowel loops, and colon are unremarkable. Colonic diverticulosis is seen, without findings of active diverticulitis. Peritoneum: No abnormal intraperitoneal fluid. No free air. Ventral Wall: No hernia. Abdominal Nodes: No enlarged retroperitoneal or mesenteric lymph nodes. Vessels: Aorta and inferior vena cava are normal in size. Atherosclerotic calcification is noted. PELVIS: Pelvic Organs: Unremarkable. Pelvic Nodes: Unremarkable. Miscellaneous: No inguinal hernias are seen. Bones: Age-appropriate bony degenerative changes are seen, including involving the lumbar spine. Mild levoconvex scoliotic curvature is noted. Right hip arthroplasty hardware is seen. IMPRESSION: There is a 5 mm nonobstructing right-sided kidney stone. No ureteral stones or hydronephrosis can be seen on either side. Additional findings: Small hiatal hernia Levoconvex scoliotic curvature Diverticulosis, without active diverticulitis Right hip arthroplasty hardware Dictated by: Jim Michel M.D. on 04/08/2023 at 15:29 Approved by: Jim Michel M.D. on 04/08/2023 at 15:33
== END ==
PROVIDERS: PCP Family Medicine; Referring Provider Specialist; Visit Provider Specialist
DX: N20.0 Calculus of kidney (principal); K44.9 Diaphragmatic hernia without obstruction or gangrene; K57.90 Diverticulosis of intestine, part unspecified, without perforation or abscess without bleeding; M41.9 Scoliosis, unspecified; Z87.442 Personal history of urinary calculi; Z96.641 Presence of right artificial hip joint
CPT/HCPCS: 74176

== ENCOUNTER → 2023-04-20 06:54 | Outpatient (CLI) | payer MEDICARE, OTHER, SELFPAY ==
[2023-02-10 10:51] VITALS: BMI 36.0
--- NOTE | 2023-04-20 06:55 | DI.ECHO.S_ITS ---
[place] [facility]---------+ [facility] +---------+ : : [address] : : : : [id number] : : : : Phone: [phone]+ Echocardiogram Report + + :Name: SARAH STEWARD Study Date: 04/20/2023 Height: 63.5 in: :[facility] ReadingLocation: Weight: 215 lb : : Gender: Female BSA: 2.0 m2 : :: 1940 Age: 82 yrs BP: 165/98 mmHg: :Reason For Study: DYSPNEA : :Ordering Physician: CIERRA, : :JILL Scherer Performed By: Mallorie Enamorado : :Referring: JILL NORTON : + + Interpretation Summary There is mild concentric left ventricular hypertrophy. The ejection fraction is estimated to be 55-60%. There is mild aortic valve sclerosis. There is mild mitral annular calcification. Procedure: A two-dimensional transthoracic echocardiogram with color flow and Doppler was performed. The study quality was technically difficult. There is no prior echocardiogram noted for this patient. The patient was in sinus rhythm with heart rates between 59-76 bpm during the exam. Left Ventricle: The left ventricle is normal in size. There is mild concentric left ventricular hypertrophy. The ejection fraction is estimated to be 55-60%. There are no focal wall motion abnormalities. Right Ventricle: The right ventricle is normal in size and function. Atria: The left atrial size is normal. Right atrial size is normal. There is no Doppler evidence for an interatrial shunt. Mitral Valve: The mitral valve is normal in structure and function. There is mild mitral annular calcification. There is trace mitral regurgitation. Aortic Valve: The aortic valve is trileaflet. The aortic valve opens well. There is mild aortic valve sclerosis. There is no aortic valve stenosis. No aortic regurgitation is present. Tricuspid Valve: The tricuspid valve is normal in structure and function. There is trace tricuspid regurgitation. The right ventricular systolic pressure is estimated to be at least 25 mmHg based on an estimated right atrial pressure of 3 mm Hg. Pulmonic Valve: The pulmonic valve is not well visualized. There is no pulmonic valvular regurgitation. Great Vessels: The aortic root is normal size. The dimensions of the ascending aorta are normal. The IVC is of normal diameter and collapses greater than 50% with a sniff. This suggests a low right atrial pressure of 3 mm Hg. Pericardium/ Pleura There is no pericardial effusion. There is an anterior echo-free space consistent with a fat pad. There is no pleural effusion. MMode/2D Measurements & Calculations LVIDd: 5.1 cm LVOT diam: 2.0 cm LVIDs: 2.9 cm Ao root diam: 3.1 cm FS: 42.0 % asc Aorta Diam: 3.1 cm IVSd: 1.1 cm Ao Arch Diam (Prox Trans): 3.0 cm LVPWd: 1.00 cm LV carranza. diameter/BSA (cm/m^2): 2.5 LV sys. diameter/BSA (cm/m^2): 1.5 LA A2 area: 18.5 cm2 RA long axis: 4.6 cm LA A4 area: 19.4 cm2 RA area: 13.8 cm2 LA length (vol): 5.2 cm RA vol: 35.1 ml LA vol: 58.7 ml RA : 17.5 ml/m2 LA vol index: 29.2 ml/m2 IVC diam: 1.9 cm RVD1 (basal): 3.3 cm TAPSE: 1.9 cm Doppler Measurements & Calculations Ao V2 max: 148.2 cm/sec LVOT Max Santiago: 99.0 cm/sec Ao V2 mean: 103.3 cm/sec LV V1 max P.9 mmHg Ao max P.8 mmHg LV V1 VTI: 22.5 cm Ao mean P.7 mmHg ALEJANDRO(I,D): 2.2 cm2 Ao V2 VTI: 31.1 cm ALEJANDRO(V,D): 2.1 cm2 sev ratio: 0.72 ALEJANDRO indexed to BSA (cm^2/m^2): 1.1 MV E max santiago: 83.2 cm/sec TR max santiago: 233.2 cm/sec MV A max santiago: 103.3 cm/sec TR max P.8 mmHg MV E/A: 0.81 PA V2 max: 84.1 cm/sec Med Peak E' Santiago: 5.4 cm/sec PA V2 mean: 58.2 cm/sec E/E' med: 15.5 PA mean P.5 mmHg Lat Peak E' Santiago: 5.7 cm/sec PA pr(Accel): 48.2 mmHg E/E' lat: 14.6 E/e' average: 15.1 MV dec time: 0.26 sec SV(LVOT): 69.3 ml Electronically signed by: Bernard Mendosa on Reading Physician:04/20/2023 05:06 PM
== END ==
PROVIDERS: PCP Family Medicine; Referring Provider Physician Assistant; Visit Provider Physician Assistant
DX: I34.81 Nonrheumatic mitral (valve) annulus calcification (principal); I35.8 Other nonrheumatic aortic valve disorders; R06.09 Other forms of dyspnea; R53.83 Other fatigue
CPT/HCPCS: 93306

== ENCOUNTER → 2023-05-11 16:20 | Outpatient (CLI) | payer MEDICARE, OTHER, SELFPAY ==
[2023-02-10 10:51] VITALS: BMI 36.0
[2023-05-11 17:44] LABS: Uric Acid 5.7 mg/dL (2.5-6.2)
== END ==
PROVIDERS: PCP Family Medicine; Referring Provider Physician Assistant; Visit Provider Physician Assistant
DX: E79.0 Hyperuricemia without signs of inflammatory arthritis and tophaceous disease (principal)
CPT/HCPCS: 36415; 84550

== ENCOUNTER → 2023-06-23 16:52 | Outpatient (CLI) | payer MEDICARE, OTHER, SELFPAY ==
[2023-02-10 10:51] VITALS: BMI 36.0
[2023-06-23 17:36] LABS: Hematocrit 39.2 % (36-46); Hemoglobin 13.2 g/dL (12.0-16.0)
[2023-06-23 18:05] LABS: BUN Creatinine Ratio 16.5 (6-22); Blood Urea Nitrogen 14 mg/dL (7-17); Calcium 10.1 mg/dL (8.4-10.2); Carbon Dioxide 29 mmol/L (22-32); Chloride 99 mmol/L (98-107); Estimated Glomerular Filt Rate > 60 mL/min (>60); Glucose 111 mg/dL (80-110); HEMOLYSIS 16 (0-50); Potassium 4.3 mmol/L (3.4-5.1); Sodium 136 mmol/L (137-145)
[2023-06-23 18:16] LABS: Creatinine Urine Random 34.2 mg/dL; Protein (Total) Urine Random 15 mg/dL (0-12); Protein Creatinine Ratio Urine 0.43 GRAM/24H
== END ==
PROVIDERS: PCP Family Medicine; Referring Provider Student in an Organized Health Care Education/Training Program; Visit Provider Student in an Organized Health Care Education/Training Program
DX: N05.9 Unspecified nephritic syndrome with unspecified morphologic changes (principal); D64.9 Anemia, unspecified; R80.9 Proteinuria, unspecified
CPT/HCPCS: 36415; 80048; 82570; 84156; 85014; 85018

== ENCOUNTER → 2023-08-21 14:05 | Outpatient (CLI) | payer MEDICARE, OTHER, SELFPAY ==
[2023-02-10 10:51] VITALS: BMI 36.0
[2023-08-21 14:39] LABS: Add Manual Diff / Slide Review NO; Basophils Absolute Auto 100 /uL (0-100); Basophils Percent Auto 0.6 % (0-2); Eosinophils Absolute Auto 200 /uL (0-450); Eosinophils Percent Auto 1.4 % (2-4); Lymphocytes Absolute Auto 2500 /uL (1100-4500); Lymphocytes Percent Auto 22.8 % (25-40); Mean Corpuscular HGB Conc 33.5 % (30-36); Mean Corpuscular Hemoglobin 29.7 PG (26-34); Mean Corpuscular Volume 88.7 fL (80-100); Monocytes Absolute Auto 1000 /uL (0-900); Monocytes Percent Auto 9.4 % (3-14); Neutrophils Absolute Auto 7200 /uL (1500-7000); Neutrophils Percent Auto 65.8 % (50-75); Platelet Count 318 X10^3/uL (150-400); Red Blood Cell Count 4.39 X10^6/uL (4.0-5.2); Red Cell Distribution Width 14.4 % (11.6-14.8)
[2023-08-21 15:03] LABS: Phosphorous 3.7 mg/dL (2.8-4.1)
[2023-08-21 15:06] LABS: BUN Creatinine Ratio 17.3 (6-22); Blood Urea Nitrogen 17 mg/dL (7-17); Calcium 10.2 mg/dL (8.4-10.2); Carbon Dioxide 31 mmol/L (22-32); Chloride 101 mmol/L (98-107); Estimated Glomerular Filt Rate 58 mL/min (>60); Glucose 73 mg/dL (80-110); HEMOLYSIS < 15 (0-50); Potassium 4.2 mmol/L (3.4-5.1); Sodium 137 mmol/L (137-145); Uric Acid 5.9 mg/dL (2.5-6.2)
[2023-08-21 15:56] LABS: Appearance Urine UA CLEAR; Bilirubin Urine UA NEGATIVE (NEGATIVE); Color Urine UA YELLOW; Glucose Urine UA NEGATIVE (Negative); Ketones Urine UA NEGATIVE (NEGATIVE); Leukocyte Esterase Urine UA NEGATIVE (NEGATIVE); Nitrite Urine UA NEGATIVE (Negative); Occult Blood Urine UA NEGATIVE (Negative); Protein Urine UA NEGATIVE (Negative)
[2023-08-21 16:14] LABS: Bacteria Urine None Seen; Culture Indicated Urine Cult Not Indicated; RBC Urine None Seen (0-5/HPF); Squamous Epithelial Cell Urine 0-1 /HPF (0-5/HPF); Urine Volume 10mL (spun); WBC Urine 0-1/HPF (0-5/HPF)
[2023-08-21 16:33] LABS: Creatinine Urine Random 69.4 mg/dL
[2023-08-21 16:34] LABS: Creatinine Urine Random 70.1 mg/dL; Protein (Total) Urine Random 8 mg/dL (0-12); Protein Creatinine Ratio Urine 0.11 GRAM/24H; Sodium Urine Random 14 mmol/L (30-90)
[2023-08-21 16:37] LABS: Microalbumi Creatinin Ratio Ur 33.1 ug/mg CR (<30); Microalbumin Urine Random 2.3 mg/dL (0-1.6)
[2023-08-23 12:53] LABS: Parathyroid Hormone Int 63 pg/mL (15-65)
== END ==
LOC: LAB 14:08
PROVIDERS: PCP Family Medicine; Referring Provider Student in an Organized Health Care Education/Training Program; Visit Provider Student in an Organized Health Care Education/Training Program
DX: N05.9 Unspecified nephritic syndrome with unspecified morphologic changes (principal); E79.0 Hyperuricemia without signs of inflammatory arthritis and tophaceous disease; D70.9 Neutropenia, unspecified; D63.1 Anemia in chronic kidney disease; E83.30 Disorder of phosphorus metabolism, unspecified; N25.81 Secondary hyperparathyroidism of renal origin; N30.00 Acute cystitis without hematuria; R80.9 Proteinuria, unspecified; E87.1 Hypo-osmolality and hyponatremia; E11.9 Type 2 diabetes mellitus without complications; I10 Essential (primary) hypertension; E66.9 Obesity, unspecified; G47.19 Other hypersomnia; M10.9 Gout, unspecified
CPT/HCPCS: 36415; 80048; 81001; 82043; 82570; 83036; 83970; 84100; 84156; 84300; 84550; 85025

== ENCOUNTER → 2023-10-29 07:55 | Outpatient (CLI) | payer MEDICARE, OTHER, SELFPAY ==
[2023-02-10 10:51] VITALS: BMI 36.0
== END ==
PROVIDERS: PCP Family Medicine; Visit Provider Nurse Practitioner Family
DX: J02.9 Acute pharyngitis, unspecified (principal)
CPT/HCPCS: 87070

== ENCOUNTER → 2023-11-16 09:45 | Outpatient (CLI) | payer MEDICARE, OTHER, SELFPAY ==
[2023-02-10 10:51] VITALS: BMI 36.0
[2023-11-16 10:30] LABS: Hemoglobin A1C% w Est Avg Glu 5.8 % (4.0-6.0)
[2023-11-16 10:37] LABS: Alanine Aminotransferase 22 IU/L (<35); Albumin 4.1 g/dL (3.5-5.0); Albumin Globulin Ratio 1.4 (1.0-2.8); Alkaline Phosphatase 122 U/L (38-126); Aspartate Aminotransferase 25 IU/L (14-36); BUN Creatinine Ratio 20.9 (6-22); Bilirubin Total 0.5 mg/dL (0.2-1.3); Blood Urea Nitrogen 18 mg/dL (7-17); Calcium 10.1 mg/dL (8.4-10.2); Carbon Dioxide 31 mmol/L (22-32); Chloride 101 mmol/L (98-107); Estimated Glomerular Filt Rate > 60 mL/min (>60); Globulin 2.9 g/dL (1.7-4.1); Glucose 107 mg/dL (80-110); HEMOLYSIS < 15 (0-50); Sodium 136 mmol/L (137-145); Uric Acid 5.9 mg/dL (2.5-6.2)
== END ==
PROVIDERS: PCP Family Medicine; Referring Provider Family Medicine; Visit Provider Family Medicine
DX: E11.9 Type 2 diabetes mellitus without complications (principal); I10 Essential (primary) hypertension; M10.9 Gout, unspecified
CPT/HCPCS: 36415; 80053; 83036; 84550

== ENCOUNTER → 2024-03-15 12:45 | Outpatient (CLI) | payer MEDICARE, OTHER, SELFPAY ==
[2023-02-10 10:51] VITALS: BMI 36.0
--- NOTE | 2024-03-30 11:10 | DIET.CONS ---
Dietary Consultation Note Consult date: 03/15/24 Assessment: 83 y F referred to dietitian for renal colic, kidney stones, CKD stage 2, type 2 diabetes. Rupa reports confusion regarding diet recommendations for kidney stones as well as balancing those diet reccs with diet reccs (consistent CHO) for T2DM. Has been instructed to eat low oxalate diet. PCP has also discussed steaming boiling vegs will decrease oxalate in foods. Per Nephrology report- hx of calcium oxalate stones, in past has had low citrate and hyperuricosuria. Reports started ozempic 6 m ago. A1c is 5.8. Weight is stable Notes chronic constipation that is managed with stool softeners and tea - has bowel movement daily. Diet recall: B- fruit + egg and keto jamaican muffin OR scrambled eggs with cooked vegs in low carb wrap OR oatmeal OR eggo waffles w/ blueberries L-wrap with chicken or eggs, fruit D-out to eat - gets chicken and vegetables OR garden burger OR moroccan food Dessert- small slice of pie Activity- Swimming 3x/wk for 45-60 mins Ht: 5 ft 3 in Wt: 201 lb and 2 oz BMI: 36.0 UBW: - Nutrition Diagnosis: Nutrition related knowledge deficit r/t limited formal nutrition educ, being told to follow a new, low oxalate diet aeb pt assessment/report Interventions: Discussed and provided appropriate resources on the following- 1. Adequate hydration 2. Very high oxalate foods to limit/avoid 3. Adequate calcium intake - 1200 mg, calcium sources with meals 4. Emphasis on Mediterranean style of eating for including plant based proteins, limiting frequency of meat, and adequate fruits and vegetables 5. Avoid taking excessive vit C supplements - pt not currently doing this 6. Review of consistent carb diet 7. Avoiding high sodium foods, label reading, aiming for <600 mg sodium at meals Monitoring/Evaluations: pt reports better understanding of nutrition for kidney stones w/ her current eating style for T2DM, reports will f/u PRN Electronically Signed by: Kalpana Forte 03/30/24 11:10 Clinical Dietitian [address] [id number]
== END ==
PROVIDERS: PCP Family Medicine; Referring Provider Family Medicine
DX: N20.0 Calculus of kidney (principal); N23 Unspecified renal colic; E11.22 Type 2 diabetes mellitus with diabetic chronic kidney disease; N18.2 Chronic kidney disease, stage 2 (mild); Z71.3 Dietary counseling and surveillance; Z68.36 Body mass index [BMI] 36.0-36.9, adult; Z79.84 Long term (current) use of oral hypoglycemic drugs; Z79.85 Long-term (current) use of injectable non-insulin antidiabetic drugs
CPT/HCPCS: 36415; 80048; 82570; 83970; 84156; 85014; 85018; 97802

== ENCOUNTER → 2024-03-15 14:23 | Outpatient (CLI) | payer MEDICARE, OTHER, SELFPAY ==
[2023-02-10 10:51] VITALS: BMI 36.0
[2024-03-15 14:46] LABS: Hematocrit 40.4 % (36-46); Hemoglobin 13.6 g/dL (12.0-16.0)
[2024-03-15 15:15] LABS: BUN Creatinine Ratio 23.2 (6-22); Blood Urea Nitrogen 19 mg/dL (7-17); Calcium 10.3 mg/dL (8.4-10.2); Carbon Dioxide 28 mmol/L (22-32); Chloride 100 mmol/L (98-107); Estimated Glomerular Filt Rate > 60 mL/min (>60); Glucose 87 mg/dL (80-110); HEMOLYSIS 16 (0-50); Potassium 4.7 mmol/L (3.4-5.1); Sodium 136 mmol/L (137-145)
[2024-03-15 15:33] LABS: Creatinine Urine Random 36.49 mg/dL; Protein (Total) Urine Random 11 mg/dL (0-12)
== END ==
PROVIDERS: PCP Family Medicine; Referring Provider Student in an Organized Health Care Education/Training Program; Visit Provider Student in an Organized Health Care Education/Training Program
DX: N05.9 Unspecified nephritic syndrome with unspecified morphologic changes (principal); D70.9 Neutropenia, unspecified; D63.1 Anemia in chronic kidney disease; R80.9 Proteinuria, unspecified; N25.81 Secondary hyperparathyroidism of renal origin
CPT/HCPCS: 36415; 80048; 82570; 83970; 84156; 85014; 85018

== ENCOUNTER → 2024-05-17 12:20 | Outpatient (CLI) | payer MEDICARE, OTHER, SELFPAY ==
[2023-02-10 10:51] VITALS: BMI 36.0
[2024-05-17 13:09] LABS: Hematocrit 40.3 % (36-46); Hemoglobin 13.3 g/dL (12.0-16.0)
[2024-05-17 13:37] LABS: BUN Creatinine Ratio 17.4 (6-22); Blood Urea Nitrogen 16 mg/dL (7-17); Calcium 9.2 mg/dL (8.4-10.2); Carbon Dioxide 26 mmol/L (22-32); Chloride 101 mmol/L (98-107); Estimated Glomerular Filt Rate > 60 mL/min (>60); Glucose 88 mg/dL (80-110); HEMOLYSIS < 15 (0-50); Potassium 4.4 mmol/L (3.4-5.1); Sodium 135 mmol/L (137-145)
[2024-05-17 14:42] LABS: Creatinine Urine Random 42.55 mg/dL; Protein (Total) Urine Random 10 mg/dL (0-12); Protein Creatinine Ratio Urine 0.23 GRAM/24H
[2024-05-19 07:40] LABS: Parathyroid Hormone Int 33 pg/mL (15-65)
== END ==
PROVIDERS: PCP Family Medicine; Referring Provider Student in an Organized Health Care Education/Training Program; Visit Provider Student in an Organized Health Care Education/Training Program
DX: N05.9 Unspecified nephritic syndrome with unspecified morphologic changes (principal); D70.9 Neutropenia, unspecified; D63.1 Anemia in chronic kidney disease; N25.81 Secondary hyperparathyroidism of renal origin; R80.9 Proteinuria, unspecified
CPT/HCPCS: 36415; 80048; 82570; 83970; 84156; 85014; 85018

== ENCOUNTER → 2024-05-31 11:43 | Outpatient (CLI) | payer MEDICARE, OTHER, SELFPAY ==
[2023-02-10 10:51] VITALS: BMI 36.0
[2024-05-31 12:52] LABS: HEMOLYSIS 17 (0-50); Potassium 4.9 mmol/L (3.4-5.1)
== END ==
LOC: LAB 11:44
PROVIDERS: PCP Family Medicine; Referring Provider Student in an Organized Health Care Education/Training Program; Visit Provider Student in an Organized Health Care Education/Training Program
DX: E87.5 Hyperkalemia (principal)
CPT/HCPCS: 36415; 84132

== ENCOUNTER → 2024-06-09 14:58 | Outpatient (CLI) | payer MEDICARE, OTHER, SELFPAY ==
[2023-02-10 10:51] VITALS: BMI 36.0
[2024-06-09 17:40] LABS: Hemoglobin A1C% w Est Avg Glu 5.6 % (4.0-6.0)
== END ==
PROVIDERS: PCP Family Medicine; Referring Provider Family Medicine; Visit Provider Family Medicine
DX: E11.9 Type 2 diabetes mellitus without complications (principal); E66.01 Morbid (severe) obesity due to excess calories
CPT/HCPCS: 36415; 83036

== ENCOUNTER → 2024-09-28 06:49 | Outpatient (CLI) | payer MEDICARE, OTHER, SELFPAY ==
[2023-02-10 10:51] VITALS: BMI 36.0
--- NOTE | 2024-09-28 06:51 | DI.US.S_ITS ---
PROCEDURE: US EXTREMITY NONVASC LOWER LT INDICATIONS: LEFT KNEE PAIN; POSSIBLE LOCKE'S CYST TECHNIQUE: Real-time scanning was performed of the left knee, with image documentation. COMPARISON: None. FINDINGS: No popliteal cyst. There is a 5.9 x 4.1 x 1.4 cm complex fluid collection anterior and superior to the knee, superficial to the patella, likely representing moderate prepatellar bursitis. IMPRESSION: No popliteal cyst. Moderate prepatellar bursitis. Further evaluation with knee MRI can be considered if clinically indicated. Dictated by: Serena Kimball M.D. on 09/28/2024 at 9:44 Approved by: Serena Kimball M.D. on 09/28/2024 at 9:46
[2024-09-28 08:54] LABS: Vitamin D 25 Hydroxy (D3) 60.4 ng/mL (30.0-100.0)
[2024-09-28 08:55] LABS: Free T3, Triiodothyronine Free 4.29 pg/mL (2.77-5.27)
[2024-09-28 09:09] LABS: TSH w/ Reflex to FT4 1.83 uIU/mL (0.47-4.68)
[2024-09-28 09:13] LABS: Ferritin 58 ng/mL (11-264)
== END ==
PROVIDERS: PCP Family Medicine; Referring Provider Family Medicine; Visit Provider Family Medicine
DX: M70.52 Other bursitis of knee, left knee (principal); M25.562 Pain in left knee; R68.89 Other general symptoms and signs; E83.52 Hypercalcemia; R53.83 Other fatigue
CPT/HCPCS: 36415; 76882; 82306; 82728; 84443; 84481

== ENCOUNTER → 2024-10-13 10:06 | Outpatient (CLI) | payer MEDICARE, OTHER, SELFPAY ==
[2023-02-10 10:51] VITALS: BMI 36.0
[2024-10-13 10:39] LABS: Hemoglobin 14.1 g/dL (12.0-16.0)
[2024-10-13 10:44] LABS: Hemoglobin A1C% w Est Avg Glu 5.3 % (4.0-6.0)
[2024-10-13 10:45] LABS: Blood Urea Nitrogen 18 mg/dL (7-17); Calcium 9.5 mg/dL (8.4-10.2); Carbon Dioxide 26 mmol/L (22-32); Chloride 100 mmol/L (98-107); Estimated Glomerular Filt Rate > 60 mL/min (>60); Glucose 98 mg/dL (70-99); HEMOLYSIS < 15 (0-50); Potassium 4.9 mmol/L (3.4-5.1); Sodium 137 mmol/L (137-145)
[2024-10-13 10:59] LABS: Creatinine Urine Random 42.67 mg/dL; Protein (Total) Urine Random 15 mg/dL (0-12); Protein Creatinine Ratio Urine 0.35 GRAM/24H
[2024-10-14 08:36] LABS: Parathyroid Hormone Int 40 pg/mL (15-65)
== END ==
PROVIDERS: PCP Family Medicine; Referring Provider Student in an Organized Health Care Education/Training Program; Visit Provider Student in an Organized Health Care Education/Training Program
DX: E11.9 Type 2 diabetes mellitus without complications (principal); N05.9 Unspecified nephritic syndrome with unspecified morphologic changes; D70.9 Neutropenia, unspecified; D63.1 Anemia in chronic kidney disease; R80.9 Proteinuria, unspecified; N25.81 Secondary hyperparathyroidism of renal origin
CPT/HCPCS: 36415; 80048; 82570; 83036; 83970; 84156; 85014; 85018

== ENCOUNTER → 2025-04-26 11:41 | Outpatient (CLI) | payer MEDICARE, OTHER, SELFPAY ==
[2023-02-10 10:51] VITALS: BMI 36.0
[2025-04-26 12:39] LABS: Alanine Aminotransferase 15 IU/L (<35); Albumin 4.0 g/dL (3.5-5.0); Albumin Globulin Ratio 1.5 (1.0-2.8); Alkaline Phosphatase 135 U/L (38-126); Blood Urea Nitrogen 19 mg/dL (7-17); Calcium 9.4 mg/dL (8.4-10.2); Carbon Dioxide 30 mmol/L (22-32); Chloride 104 mmol/L (98-107); Estimated Glomerular Filt Rate > 60 mL/min (>60); Globulin 2.7 g/dL (1.7-4.1); Glucose 85 mg/dL (70-99); HEMOLYSIS < 15 (0-50); Potassium 4.5 mmol/L (3.4-5.1); Sodium 140 mmol/L (137-145); Total Protein 6.7 g/dL (6.3-8.2)
== END ==
PROVIDERS: PCP Family Medicine; Referring Provider Family Medicine; Visit Provider Family Medicine
DX: E83.52 Hypercalcemia (principal); I10 Essential (primary) hypertension
CPT/HCPCS: 36415; 80053